=== PATIENT | male | born 1960 | race Caucasian/White ===

== ENCOUNTER 2020-06-20 15:31 | Emergency (ER) | payer OTHER, SELFPAY ==
[2020-06-20 16:33] VITALS: BP 117/85; PULSE 95; RESP 16; TEMP 36.7; O2SAT 96; BMI 27.1
--- NOTE | 2020-06-20 17:49 | CTR_ITS ---
PROCEDURE INFORMATION: Exam: CT Cervical Spine Without Contrast Exam date and time: 06/20/2020 5:58 PM Age: 59 years old Clinical indication: Neck pain; Prior surgery; Surgery date: 6+ months; Surgery type: 6-7 fusion; Patient HX: C/O neck and rue pain x 1+month denies new injury; Additional info: Cervical radiculopathy TECHNIQUE: Imaging protocol: Computed tomography images of the cervical spine without contrast. Radiation optimization: All CT scans at this facility use at least one of these dose optimization techniques: automated exposure control; mA and/or kV adjustment per patient size (includes targeted exams where dose is matched to clinical indication); or iterative reconstruction. COMPARISON: CT Cervical Spine wo* [id number] 01/11/2019 2:00 PM RADIATION DOSE METRICS: Total DLP (mGy-cm): 717 FINDINGS: Vertebrae: No acute fracture. Normal alignment. There is a satisfactory appearance of the postoperative anterior plate and screw fixation C6-C7 with solid bony fusion. There are stable mild to moderate degenerative changes at the C5-C6 disc space with there are marginal osteophytes and endplate sclerosis. Discs/Spinal canal/Neural foramina: Unchanged small disc protrusion at C5-C6. No new disc protrusion. No severe spinal canal stenosis. No new or progressive neural foraminal narrowing. Unchanged right foraminal narrowing at C6-C7 and C7-T1 due to bony osteophyte formation. Soft tissues: Unremarkable. Lungs: Lung apices are normal. CT/CT cervical spin wo con* [id number] IMPRESSION: No acute findings. Unchanged exam. Stable satisfactory appearance of the postoperative cervical spine. Unchanged small central disc protrusion at C5-C6 and unchanged right foraminal narrowing due to bony proliferative changes at C6-C7 and C7-T1. Radiation Dose CTDIVOL = (mGy): DLP = 717 (mGy-cm)
[2020-06-20 18:27] VITALS: BP 108/76; PULSE 85; RESP 18; TEMP 36.6; O2SAT 96
[2020-06-20 20:00] VITALS: BP 123/87; PULSE 83; RESP 14; TEMP 36.4; O2SAT 97
--- NOTE | 2020-06-20 20:15 | W.ED.NECK ---
HPI - Neck Pain/Injury General: Chief Complaint: Neck Pain/Injury Stated Complaint: chronic neck and arm pain Time Seen by Provider: 06/20/20 17:15 Source: patient Mode of arrival: ambulatory Limitations: no limitations History of Present Illness: HPI Narrative: Patient comes in for neck pain worse over the last 2 weeks. Patient has a history of chronic neck pain. Patient denies any new injury. Review of Systems General: Reports: 10 or more systems reviewed and unremarkable except in HPI and below Musc: Reports: neck pain PFSH ED PFSH: Medical History (Updated 06/20/20 @ 20:25 by NAA Littlejohn) HTN (hypertension) Surgical History S/P PTCA (percutaneous transluminal coronary angioplasty) Family History Sister Stroke Mother Stroke CAD (coronary artery disease) Social History (Updated 06/20/20 @ 16:40 by Bill Mckeon RN) Smoking and tobacco status: current some day smoker Alcohol intake: never Substance/Drug Use: current Substance/Drug use frequency: Special occassions/opportunity only Substance/Drug use type: Marijuana Physical Exam Const: COMMON NORMALS: no acute distress and patient oriented x3 GENERAL APPEARANCE: cooperative HENMT: COMMON NORMALS: normocephalic and Normal external nose present HEAD & SCALP: normal to inspection and normocephalic NOSE: Normal external nose present Eye: GENERAL EYE: appearance normal, both eyes and all related structures Neck/C-Spine: GENERAL: Yes torticollis Chest: COMMONS NORMALS: normal inspection of the chest Resp: COMMON NORMALS: normal respiratory effort EFFORT & INSPECTION: Yes able to speak in complete sentences Cardio: COMMON NORMALS: regular rate and regular rhythm RATE: regular rate RHYTHM: regular rhythm GI: COMMON NORMALS: non-tender Back/Pelvis: COMMON NORMALS: thoracic and lumbar spine normal to inspection Extremity: COMMON NORMALS: normal to inspection Neuro: COMMON NORMALS: patient oriented x3 and moves all extremities Psych: COMMON NORMALS: mental status grossly normal and cooperative Skin: COMMON NORMALS: no rashes or lesions noted GENERAL SKIN EXAM: no rashes or lesions noted Course Vital Signs: Vital signs: Vital Signs Temperature 97.6 F 06/20/20 20:00 Pulse Rate 83 06/20/20 20:00 Respiratory Rate 14 06/20/20 20:00 Blood Pressure 123/87 06/20/20 20:00 Pulse Oximetry 97 06/20/20 20:00 MDM - Neck Pain/Injury MDM Narrative: Medical decision making narrative: Patient comes in today for complaints of neck pain worse over the last 2 weeks. Patient has chronic neck problems. Patient has pain radiating into the right arm. Patient reports this is chronic. Differential diagnosis includes a difficult radiculopathy, muscle strain, intervertebral disc disease, facet arthropathy. CT scan of the neck noted no significant changes from prior exam. Reviewed exam with patient with recommendations for treatment of flare of condition with recommendations for follow-up. Patient reported understanding. Discharge Plan Discharge Patient Disposition: Home Clinical Impression: Cervical radiculopathy Condition: Stable Prescriptions: New hydrocodone-acetaminophen 7.5-325 mg tablet 1 tab PO Q6H PRN (Reason: pain) Qty: 12 RF: 0 No Action cyclobenzaprine 10 mg tablet 10 mg PO DAILY RF: 0 gabapentin 600 mg tablet 900 mg PO TID RF: 0 lidocaine HCl [Aspercreme (lidocaine HCl)] 4 % cream 1 applic TOPICAL BID RF: 0 acetaminophen [Tylenol Extra Strength] 500 mg tablet 500 mg PO Q6H PRNRF: 0 nitroglycerin [Nitrostat] 0.4 mg tablet, sublingual 0.4 mg SUBLINGUAL Q5M PRNRF: 0 clopidogrel [Plavix] 75 mg tablet 75 mg PO DAILY RF: 0 metoprolol tartrate 50 mg tablet 25 mg PO BID RF: 0 aspirin [Adult Low Dose Aspirin] 81 mg tablet,delayed release (DR/EC) 81 mg PO DAILY RF: 0 Discharge Orders: Discharge Order (Routine); Ordered 06/20/20 Ordered By: Franklin Mejia Referrals: Thomas Moy DO [Primary Care Provider] - Discharge Diet: Usual diet Discharge Activity: Increase activity as tolerated Patient Instructions: Cervical Radiculopathy (ED) Activity Restrictions/Additional Instructions: Activity as tolerated. Gentle stretching and range of motion exercises. Take medications as directed. Call and talk to primary care on Tuesday morning for further evaluation and treatment. Return to the emergency department for high fever or new concerns. Coding Level of Care Code ED Job Placement Specialist for Manjit Fwsandra Exam Comprehensive
[2020-06-20] MEDS: ketorolac 30 mg/mL INJ IM (20:39)
[2020-06-20] MEDS: dexamethasone 10 mg/mL INJ IM (20:39)
== END 2020-06-20 20:44 | disposition home or self-care (01) ==
PROVIDERS: Emergency Provider Nurse Practitioner Family; Family Provider Emergency Medicine Emergency Medical Services; PCP Emergency Medicine Emergency Medical Services
DX: M54.12 Radiculopathy, cervical region (principal); Z79.02 Long term (current) use of antithrombotics/antiplatelets; Z79.82 Long term (current) use of aspirin; I10 Essential (primary) hypertension; F17.210 Nicotine dependence, cigarettes, uncomplicated
CPT/HCPCS: 12345; 72125; 96372; 99281; 99283; J1100; J1885

== ENCOUNTER 2020-07-02 13:28 | Emergency (ER) | payer OTHER, SELFPAY ==
--- NOTE | 2020-07-02 13:32 | ECG_ITS ---
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 Measurements Intervals [place] Rate: 107 P: 72 IN: 158 QRS: 55 QRSD: 76 T: 69 QT: 301 QTc: 402 Interpretive Statements SINUS TACHYCARDIA POSSIBLE LEFT ATRIAL ENLARGEMENT [-0.1mV P WAVE IN V1/V2] ABNORMAL RHYTHM ECG Compared to ECG 08/02/2019 23:22:21 Sinus rhythm no longer present Myocardial infarct finding no longer present Electronically Signed On 07-02-2020 21:45:13 CDT by Artie Gerard M.D. [email or web address]/[id number]
[2020-07-02 13:33] VITALS: BP 97/51; PULSE 116; RESP 18; TEMP 36.7; O2SAT 95; BMI 27.1
--- NOTE | 2020-07-02 14:06 | XRR_ITS ---
PROCEDURE INFORMATION: Exam: XR Chest, 1 View Exam date and time: 07/02/2020 2:06 PM Age: 59 years old Clinical indication: Chest pain; Type not specified; Prior surgery; Surgery type: Stents; Patient HX: Cp started 07/01 history of heart attacks TECHNIQUE: Imaging protocol: XR of the chest Views: 1 view. COMPARISON: CR Chest 1 [place] [id number] 08/02/2019 10:02 PM FINDINGS: Lungs: Unremarkable. No consolidation. Pleural space: Unremarkable. No pleural effusion. No pneumothorax. Heart/Mediastinum: Unremarkable. No cardiomegaly. Bones/joints: Metallic surgical hardware is seen in the cervical spine XR/XR chest 1V portable [id number] IMPRESSION: No acute findings. Metallic surgical hardware cervical spine
--- NOTE | 2020-07-02 14:06 | ECG_ITS ---
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 Measurements Intervals [place] Rate: 87 P: 64 CO: 161 QRS: 35 QRSD: 82 T: 61 QT: 343 QTc: 414 Interpretive Statements SINUS RHYTHM Compared to ECG 07/02/2020 13:34:19 Sinus tachycardia no longer present Electronically Signed On 07-02-2020 21:46:55 CDT by Artie Gerard M.D. [email or web address] [email or web address] Mobile/store/NU/[id number] f
--- NOTE | 2020-07-02 14:09 | ED_ITS ---
HPI - Chest Pain General: Chief Complaint: Chest Pain Stated Complaint: Chest Pain 07/01 Time Seen by Provider: 07/02/20 13:50 Source: patient Mode of arrival: ambulatory Limitations: no limitations History of Present Illness: HPI narrative: He had an episode of chest pain yesterday that lasted about 1-1/2 hours. Pain resolved after that that he has been chest pain-free since then. At the time he had the pain he was diaphoretic and had some nausea. Chest pain was substernal and radiated to his neck. He has a prior history of [place] x2, PCI he has 2 stents. His family was worried and so asked him to come to the ED for evaluation. He feels fine now. 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 Onset (ago): day(s) (1) Timing of current episode: now resolved Prior episodes: Yes Onset: during exertion Pain location: substernal Pain radiation: neck Severity: severe Quality: heaviness Associated symptoms: Reports diaphoresis, dyspnea and nausea; Deny palpitations Review of Systems General: Reports: 10 or more systems reviewed and unremarkable except in HPI and below Const: Reports: diaphoresis Eyes: Denies: change in vision or blurry vision ENMT: Denies: throat pain, enlarged tonsils, odynophagia, hoarseness, mouth pain or swelling of lips/tongue Card: Reports: chest pain; Denies: palpitations, irregular heart rhythm, edema or swelling of feet/ankles Resp: Reports: dyspnea GI: Reports: nausea : Denies: flank pain, dysuria, urinary frequency, urinary urgency or urinary hesitancy Musc: Denies: neck pain, back pain or extremity swelling Skin/Breast: Denies: rash, pruritus or erythema Neuro: Denies: headache(s), numbness in extremities or weakness in extremities Endo: Denies: polyuria, polydipsia or tired all the time [facility] ED PFSH: Medical History HTN (hypertension) Surgical History S/P PTCA (percutaneous transluminal coronary angioplasty) Family History Sister Stroke Mother Stroke CAD (coronary artery disease) Social History Smoking and tobacco status: current some day smoker Alcohol intake: never Physical Exam Const: COMMON NORMALS: no acute distress, average body habitus, patient oriented x3, no limitations, healthy appearing, alert and well nourished HENMT: COMMON NORMALS: normocephalic, atraumatic and moist oral mucous membranes HEAD & SCALP: normocephalic and atraumatic Eye: COMMON NORMALS: Equal, round and reactive pupils present, EOMs intact bilaterally, conjunctivae normal and no scleral icterus CONJUNCTIVA: Yes conjunctivae normal PUPIL: Yes Equal, round and reactive pupils present Neck/C-Spine: COMMON NORMALS: full ROM, supple, no meningeal signs, no JVD and No carotid bruits Chest: COMMONS NORMALS: normal inspection of the chest and normal palpation of entire chest wall Resp: COMMON NORMALS: normal respiratory effort, No retractions, No use of accessory muscles, clear to auscultation bilaterally and percussion normal AUSCULTATION: clear to auscultation bilaterally PERCUSSION: percussion normal Cardio: COMMON NORMALS: no JVD, regular rate, regular rhythm, S1 normal heart sound present, S2 normal heart sound present, No gallops present (Cardio), No clicks present (Cardio), No murmurs present (Cardio), No rub (Cardio) and Peripheral pulses 2+ throughout RATE: regular rate RHYTHM: regular rhythm HEART SOUNDS: S1 normal heart sound present and S2 normal heart sound present PERIPHERAL PULSES: Peripheral pulses 2+ throughout GI: COMMON NORMALS: Normal to inspection, nondistended, normoactive bowel sounds present, Soft to palpation, non-tender, No hepatosplenomegaly present, no masses and no bruits PALPATION: Yes Soft to palpation and Yes No hepatosplenomegaly present Extremity: COMMON NORMALS: normal to inspection, full ROM, capillary refill normal, no calf tenderness and no pedal edema Neuro: COMMON NORMALS: patient oriented x3 SENSORIUM/ORIENTATION: Yes alert MENINGEAL SIGNS: Yes no meningeal signs Skin: COMMON NORMALS: no rashes or lesions noted, no wounds, turgor normal, no jaundice, no petechiae and no mottling GENERAL SKIN EXAM: no rashes or lesions noted and turgor normal Course Reevaluation(s): Reevaluation #1: Discussed his lab and imaging findings with him. Negative for acute findings. No signs of cardiac illness. He was a little bit hypotensive here in emergency department but was asymptomatic. He responded to fluid bolus. We will discharge him home with no new orders. Is advised to check his blood pressure frequently and may need an adjustment of his antihypertensive. He voiced understanding and is in agreement with the plan Time: 18:16 Vital Signs: Vital signs: Vital Signs Temperature 98.1 F 07/02/20 13:33 Pulse Rate 78 07/02/20 18:15 Respiratory Rate 18 07/02/20 18:15 Blood Pressure 95/57 07/02/20 18:15 Pulse Oximetry 95 07/02/20 18:15 MDM - Chest Pain MDM Narrative: Medical decision making narrative: 59-year-old gentleman who presented to the emergency department with chest pain happened yesterday. He was chest pain-free when he came to the emergency department. Evaluation in the emergency department was unremarkable other than he was hypotensive. Hypotension was asymptomatic and he responded to a fluid bolus. Patient was discharged home with no new orders, but he left the emergency department before he got his discharge paperwork Medical Records: Attestation: I reviewed the patient's medical records. Lab Data: Attestation: I reviewed the patient's lab results. Labs: Lab Results 07/02/20 07/02/20 07/02/20 Range/Units 13:58 13:58 13:58 WBC Cancelled Corrected WBC Cancelled RBC Cancelled Hgb Cancelled Hct Cancelled MCV Cancelled MCH Cancelled MCHC Cancelled RDW Cancelled Plt Count Cancelled MPV Cancelled Gran % Cancelled Neut % (Auto) Cancelled Lymph % (Auto) Cancelled Nobles % (Auto) Cancelled Eos % (Auto) Cancelled Baso % (Auto) Cancelled Neut # (Auto) Cancelled Lymph # (Auto) Cancelled Nobles # (Auto) Cancelled Eos # (Auto) Cancelled Baso # (Auto) Cancelled Absolute Gran (aut o) Cancelled Nucleated RBC % (a uto) Cancelled Nucleated RBCs # Cancelled Sodium 138 (136-145) mmol/L Potassium 4.5 (3.5-5.1) mmol/L Chloride 103 (98-107) mmol/L Carbon Dioxide 24 (22-29) mmol/L Anion Gap 15.5 (5-19) BUN 15 (6-20) mg/dL Creatinine 0.9 (0.7-1.2) mg/dL GFR Calculation 86.4 L (90-130) mL/min Glucose 102 (65-115) mg/dL Calculated Osmolal ity 287 (285-295) mOsm/k g Calcium 9.5 (8.5-10.5) mg/dL Total Bilirubin 0.3 (0.15-1.2) mg/dL AST 13 (0-40) U/L ALT 14 (0-41) U/L Alkaline Phosphata se 58 (40-130) IU/L Troponin T Baselin e 6 (0-15) ng/L Troponin T 120 Min hamida (0-15) ng/L Delta Troponin T (0-10) ABS# NT-Pro-B Natriuret Pep 56 (0-125) pg/mL Total Protein 6.5 L (6.6-8.7) g/dL Albumin 4.4 (3.5-5.2) g/dL Globulin 2.1 (1.3-4.6) g/dL Lipase 21 (13-60) U/L 07/02/20 07/02/20 Range/Units 15:31 15:31 WBC 9.8 Corrected WBC RBC 4.34 Hgb 14.3 Hct 43.7 MCV 100.7 H MCH 32.9 MCHC 32.7 RDW 12.5 Plt Count 181 MPV 11.4 H Gran % Neut % (Auto) 63.2 Lymph % (Auto) 27.0 Nobles % (Auto) 7.2 Eos % (Auto) 1.4 Baso % (Auto) 0.8 Neut # (Auto) 6.18 Lymph # (Auto) 2.7 Nobles # (Auto) 0.7 Eos # (Auto) 0.1 Baso # (Auto) 0.1 Absolute Gran (aut o) Nucleated RBC % (a uto) 0 Nucleated RBCs # 0.0 Sodium (136-145) mmol/L Potassium (3.5-5.1) mmol/L Chloride (98-107) mmol/L Carbon Dioxide (22-29) mmol/L Anion Gap (5-19) BUN (6-20) mg/dL Creatinine (0.7-1.2) mg/dL GFR Calculation (90-130) mL/min Glucose (65-115) mg/dL Calculated Osmolal ity (285-295) mOsm/k g Calcium (8.5-10.5) mg/dL Total Bilirubin (0.15-1.2) mg/dL AST (0-40) U/L ALT (0-41) U/L Alkaline Phosphata se (40-130) IU/L Troponin T Baselin e (0-15) ng/L Troponin T 120 Min hamida 6.00 (0-15) ng/L Delta Troponin T 0 (0-10) ABS# NT-Pro-B Natriuret Pep (0-125) pg/mL Total Protein (6.6-8.7) g/dL Albumin (3.5-5.2) g/dL Globulin (1.3-4.6) g/dL Lipase (13-60) U/L Imaging Data^: CXR: Attestation: I personally reviewed and interpreted this imaging study as follows: Radiologist's impression: [address] [address] XRay Report Signed Patient: Linda Chakraborty #: [id number] : 1Acct#:[id number] Age/Sex: 59 / MADM Date: 07/02/20 Loc: [facility] [place]/Bed: Attending Dr: Ordering Provider/Ordering MD: Omayra Clancy MD, [facility] [place] Date of Service: 07/02/20 Procedure(s): XR chest 1V portable [id number] Accession Number(s): [id number] Report Number: [id number] PROCEDURE INFORMATION: Exam: XR Chest, 1 View Exam date and time: 07/02/2020 2:06 PM Age: 59 years old Clinical indication: Chest pain; Type not specified; Prior surgery; Surgery type: Stents; Patient HX: Cp started 07/01 history of heart attacks TECHNIQUE: Imaging protocol: XR of the chest Views: 1 view. COMPARISON: CR Chest 1 [place] [id number] 08/02/2019 10:02 PM FINDINGS: Lungs: Unremarkable. No consolidation. Pleural space: Unremarkable. No pleural effusion. No pneumothorax. Heart/Mediastinum: Unremarkable. No cardiomegaly. Bones/joints: Metallic surgical hardware is seen in the cervical spine XR/XR chest 1V portable [id number] IMPRESSION: No acute findings. Metallic surgical hardware cervical spine Dictated By:Scott Viramontes Signed By:Alison Viramontes Date/Time:07/02/20 1507 DD/ 1505 EKG Data^: EKG 1: Attestation: I personally reviewed and interpreted this EKG as follows: EKG interpretation date: 07/02/20 EKG interpretation time: 13:34 Prior EKG tracings: not available for review Interpretation: Sinus tachycardia. Heart rate [address] changes. Normal axis. EKG 2: Attestation: I personally reviewed and interpreted this EKG as follows: EKG interpretation date: 07/02/20 EKG interpretation time: 16:03 Prior EKG tracings: available for review Interpretation: Normal sinus rhythm. Heart rate [address] changes. Discharge Plan Discharge Patient Disposition: Home Clinical Impression: Chest pain, non-cardiac Prescriptions: Continued cyclobenzaprine 10 mg tablet 10 mg PO DAILY RF: 0 gabapentin 600 mg tablet 900 mg PO TID RF: 0 lidocaine HCl [Aspercreme (lidocaine HCl)] 4 % cream 1 applic TOPICAL BID RF: 0 acetaminophen [Tylenol Extra Strength] 500 mg tablet 500 mg PO Q6H PRNRF: 0 nitroglycerin [Nitrostat] 0.4 mg tablet, sublingual 0.4 mg SUBLINGUAL Q5M PRNRF: 0 clopidogrel [Plavix] 75 mg tablet 75 mg PO DAILY RF: 0 metoprolol tartrate 50 mg tablet 25 mg PO BID RF: 0 aspirin [Adult Low Dose Aspirin] 81 mg tablet,delayed release (DR/EC) 81 mg PO DAILY RF: 0 hydrocodone-acetaminophen 7.5-325 mg tablet 1 tab PO Q6H PRN (Reason: pain) Qty: 12 RF: 0 Discharge Orders: Discharge Order (Routine); Ordered 07/02/20 Ordered By: Omayra Clancy Referrals: Thomas Moy DO [Primary Care Provider] - 1-3 days Discharge Diet: Usual diet Discharge Activity: Increase activity as tolerated Patient Instructions: Noncardiac Chest Pain (ED) Activity Restrictions/Additional Instructions: Return for any new or worsening symptoms. Follow-up with your primary care provider within 3 days. Check your blood pressure daily and if your blood pressure remains low you may need some adjustment of your medication. Discharge Date/Time: 07/02/20 18:17 Coding Level of Care Code ED Career Resource Technician for Manjit Fwd Exam Comprehensive
[2020-07-02 14:36] LABS: Troponin(5th) Baseline 6 ng/L (0-15)
[2020-07-02 14:43] LABS: Anion Gap 15.5 (5-19); Blood Urea Nitrogen 15 mg/dL (6-20); Carbon Dioxide 24 mmol/L (22-29); Chloride 103 mmol/L (98-107); Potassium 4.5 mmol/L (3.5-5.1); Sodium 138 mmol/L (136-145)
[2020-07-02 14:44] LABS: Alanine Aminotransferase 14 U/L (0-41); Albumin Level 4.4 g/dL (3.5-5.2); Alkaline Phosphatase 58 IU/L (40-130); Aspartate Amino Transferase 13 U/L (0-40); Calcium 9.5 mg/dL (8.5-10.5); Globulin 2.1 g/dL (1.3-4.6); Glomerular Filtration Rate 86.4 mL/min (90-130); Glucose 102 mg/dL (65-115); Lipase 21 U/L (13-60); NT Pro B Type Natriuretic Pept 56 pg/mL (0-125); Osmolality Calculated 287 mOsm/kg (285-295); Total Bilirubin 0.3 mg/dL (0.15-1.2); Total Protein 6.5 g/dL (6.6-8.7)
[2020-07-02 15:34] VITALS: BP 81/65; PULSE 88; RESP 18; O2SAT 94
[2020-07-02 15:40] LABS: Basophils # 0.1 10^3/uL (0.0-0.1); Basophils % 0.8 %; Eosinophils # 0.1 10^3/uL (0.0-0.8); Eosinophils % 1.4 %; Hematocrit 43.7 % (42.0-52.0); Hemoglobin 14.3 g/dL (11.7-16.6); Lymphocytes # 2.7 10^3/uL (0.8-4.8); Mean Corpuscular HGB Conc 32.7 g/dL (30.0-36.0); Mean Corpuscular Hemoglobin 32.9 pg (28.0-34.0); Mean Corpuscular Volume 100.7 fL (80-94); Mean Platelet Volume 11.4 fL (7.4-10.4); Monocytes # 0.7 10^3/uL (0.2-0.9); Monocytes % 7.2 %; Neutrophils # 6.18 10^3/uL (1.8-7.7); Neutrophils % 63.2 %; Nucleated Red Blood Cells % 0 %; Platelet Count 181 10^3/cmm (130-400); Red Blood Count 4.34 10^6/uL (4.1-5.3); Red Cell Distribution Width 12.5 % (12.1-15.1); White Blood Count 9.8 10^3/uL (4.0-10.0)
[2020-07-02] MEDS: sodium chloride 0.9% 1,000 ML 999 ML IV (15:51)
[2020-07-02 15:58] LABS: Troponin 5 2HR Delta 0 ABS# (0-10)
[2020-07-02 17:32] VITALS: BP 88/65; PULSE 77; RESP 16; O2SAT 94
[2020-07-02 18:15] VITALS: BP 95/57; PULSE 78; RESP 18; O2SAT 95
== END 2020-07-02 18:17 | disposition home or self-care (01) ==
PROVIDERS: Emergency Provider Family Medicine; PCP Emergency Medicine Emergency Medical Services
DX: R07.89 Other chest pain (principal); Z79.02 Long term (current) use of antithrombotics/antiplatelets; Z79.82 Long term (current) use of aspirin; I10 Essential (primary) hypertension; F17.210 Nicotine dependence, cigarettes, uncomplicated
CPT/HCPCS: 12345; 71045; 80053; 83690; 83880; 84484; 85025; 93005; 96360; 99283; 99284; J7030

== ENCOUNTER 2020-09-16 07:35 | Outpatient (CLI) | payer OTHER, SELFPAY ==
[2020-09-16 07:44] VITALS: BMI 26.8
--- NOTE | 2020-09-16 07:51 | USCV_ITS ---
Fahad Chakraborty Age: 59 Gender: M : 1960 Exam Date: 09/16/2020 08:44 Ordering Phys: Patrick Nieto MD ([email or web address]) Technologist: Tobias Dale [place] [facility] [place]: hx of mi BP: 124 / 72 HR: 94 Rhythm: Sinus Technical Quality: Good MEASUREMENTS (Male / Female) Normal Values 2D ECHO LV Diastolic Diameter PLAX 3.7 cm 4.2 - 5.9 / 3.9 - 5.3 cm LV Systolic Diameter PLAX 2.3 cm IVS Diastolic Thickness 0.9 cm 0.6 - 1.0 / 0.6 - 0.9 cm IVS Systolic Thickness 1.2 cm LVPW Diastolic Thickness 1.2 cm 0.6 - 1.0 / 0.6 - 0.9 cm LVPW Systolic Thickness 1.1 cm LVOT Diameter 2.1 cm LV Ejection Fraction 2D Teich 69.3 % LV Ejection Fraction MOD 2C 66.9 % LV Ejection Fraction 2C AL 65.9 % LA Diameter 3.6 cm LA Width 3.5 cm LA Height 3.3 cm RA Width 3.5 cm RA Height 4.1 cm M-MODE LV Diastolic Diameter MM 4.1 cm 4.2 - 5.9 / 3.9 - 5.3 cm LV Systolic Diameter MM 3.3 cm LV Ejection Fraction MM Teich 42.3 % IVS Diastolic Thickness MM 0.9 cm 0.6 - 1.0 / 0.6 - 0.9 cm IVS Systolic Thickness MM 1.4 cm LVPW Diastolic Thickness MM 1.0 cm 0.6 - 1.0 / 0.6 - 0.9 cm LVPW Systolic Thickness MM 1.6 cm RV Diastolic Diameter MM 1.8 cm Aortic Annulus Diameter 3.1 cm LA Ao Ratio MM 1.2 MV E Point Septal Separation 0.9 cm DOPPLER AV Peak Velocity 118.0 cm/s LVOT Peak Velocity 81.0 cm/s AV Area Cont Eq vti 2.3 cm squared AV Area Cont Eq pk 2.3 cm squared MV Area PHT 5.0 cm squared Mitral E to A Ratio 0.6 MV E' Velocity 33.0 cm/s Mitral E to MV E' Ratio 5.4 Mitral E to LV E' Lateral Ratio 4.6 Mitral E to LV E' Septal Ratio 6.8 TR Peak Velocity 132.7 cm/s TR Peak Gradient 7.0 mmHg TV Peak E Velocity 54.0 cm/s Right Atrial Pressure 3.0 mmHg Pulmonary Artery Systolic Pressu 10.0 mmHg PV Peak Velocity 87.0 cm/s FINDINGS Left Ventricle Normal left ventricular cavity size. Normal left ventricular systolic function. No regional wall motion abnormalities. Left ventricular ejection fraction is estimated at 60 %. Grade I/IV diastolic dysfunction (abnormal relaxation filling pattern), normal to mildly elevated filling pressures. Right Ventricle The right ventricle is normal in size and function. Right Atrium The right atrium is normal in size. Left Atrium The left atrium is normal in size. Mitral Valve Moderately thickened mitral valve. No mitral valve stenosis. No mitral valve regurgitation. Aortic Valve Aortic valve sclerosis without stenosis or regurgitation. Tricuspid Valve Trace to mild tricuspid valve regurgitation. Pulmonic Valve Structurally normal pulmonic valve without significant stenosis. There is no pulmonic regurgitation. Pericardium Normal pericardium without effusion. Aorta Normal ascending aorta dimension. CONCLUSIONS 1-Normal left ventricular cavity size. Normal left ventricular systolic function. No regional wall motion abnormalities. Left ventricular ejection fraction is estimated at 60 %. Grade I/IV diastolic dysfunction (abnormal relaxation filling pattern), normal to mildly elevated filling pressures. 2-Trace to mild tricuspid valve regurgitation. 3-Moderately thickened mitral valve. No mitral valve stenosis. No mitral valve regurgitation. 4-There is no pericardial effusion. 5-Pulmonary artery systolic pressure is within normal limits. 6-No significant change since the prior echocardiogram study of 01/01/2017. Patrick Nieto MD (Electronically Signed) Final Date: 17 September 2020 17:54 S
--- NOTE | 2020-09-16 08:00 | ECG_ITS ---
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 Baseline heart rate was 104 beats per minute. Baseline blood pressure was 116/76 millimeters of mercury. Target heart rate was 161 beats per minute. Maximum heart rate achieved was 142, which was 88 % of the target heart rate. Maximum blood pressure was 168/95 millimeters of mercury. Total exercise time was 4 minutes 1 second. Maximum METs achieved was 6.3, maximum VO2 was 22.1. The reason for ending the test was maximum effort achieved. The patient complained of shortness of breath during the stress test, which then resolved at the end of the test. ELECTROCARDIOGRAM: BASELINE: Sinus rhythm, normal axis, no significant ST-T changes at the baseline noted. EXERCISE: At the peak exercise level, no significant ST-T changes suggestive of ischemia noted. RECOVERY: During the recovery period, heart rate dropped appropriately. No significant ST-T changes in the recovery suggestive of ischemia noted. CONCLUSION: 1. Exercise capacity poor. 2. Heart rate response was appropriate. 3. Blood pressure response was appropriate. 4. Symptoms not suggestive of ischemia. 5. Electrocardiogram portion of the stress test was not suggestive of ischemia. 6. Nuclear scan will be documented separately. Due to under achievement of METs and poor exercise capacity specificity and sensitivity of EKG portion of the stress test will be low Electronically Signed On 09-16-2020 20:06:23 FREIGHT BROKER by PATRICK NIETO [id number]
--- NOTE | 2020-09-16 08:01 | NMCV_ITS ---
NM angela perf SPECT r/s* [id number] Fahad Chakraborty Age: 59 Gender: M : 1960 Exam Date: 09/16/2020 08:58 Ordering Phys: Patrick Nieto MD ([email or web address]) Technologist: JEMMA Bernard Exam Location: [facility] Indications: Chest pain STRESS TEST Please see separate stress test report in [facility] for full findings IMAGE PROTOCOL Rest/Stress 1 Exercise Day Radiopharmaceutical Dose (mCi) Administration Site Administered by Rest: Tc-99m 10.7 IV Sujata Allie, BLOCK MACHINE OPERATOR Sestamibi Stress:Tc-99m 32.5 IV Sujata Allie, BLOCK MACHINE OPERATOR Sestamibi Rest: 16-Sep-2020 60 Discovery 630 Stress: 16-Sep-2020 30 Discovery 630 Radiopharmaceutical was injected at 85 % maximum heart rate. Images obtained in supine and prone position. SPECT RESULTS Technical Quality: Good Raw Data Analysis: Normal Image Corrections: No attenuation or motion correction applied Summed Stress Score: 4 Summed Rest Score: 2 Summed Difference Score: 2 PERFUSION FINDINGS Large area of reduce tracer uptake with medium-sized area of moderate to severe reversibility noted in basal to distal inferior inferoseptal wall suggestive of old myocardial infarction surrounded by moderate to severe maria del carmen-infarct ischemia in RCA territory. FUNCTIONAL RESULTS (calculated via Gated SPECT) Stress Image LV EF (%): 55 Stress EDV (mL):64 TID: 0.95 Stress ESV (mL):29 Rest Image LV EF (%): 55 FUNCTIONAL FINDINGS: Basal to distal inferior wall hypokinesis. IMPRESSIONS Large area of old myocardial infarction surrounded by medium-sized area of moderate to severe maria del carmen-infarct ischemia noted. RCA appeared to be the culprit artery. EKG segment will be documented separately. Patrick Nieto MD (Electronically Signed) Final Date: 16 September 2020 19:52 S
[2020-09-16 09:40] VITALS: BP 109/74; PULSE 107
== END 2020-09-16 07:36 | disposition home or self-care (01) ==
PROVIDERS: PCP Emergency Medicine Emergency Medical Services; Visit Provider Internal Medicine Cardiovascular Disease
DX: I20.9 Angina pectoris, unspecified (principal); R07.9 Chest pain, unspecified; R06.02 Shortness of breath; I25.9 Chronic ischemic heart disease, unspecified; I08.1 Rheumatic disorders of both mitral and tricuspid valves; I25.2 Old myocardial infarction
CPT/HCPCS: 78452; 93017; 93306; A9500

== ENCOUNTER 2020-10-03 08:29 | Outpatient (CLI) | payer OTHER, SELFPAY ==
[2020-10-03 09:14] LABS: Anion Gap 10.9 (5-19); Blood Urea Nitrogen 10 mg/dL (6-20); Calcium 9.6 mg/dL (8.5-10.5); Carbon Dioxide 32 mmol/L (22-29); Chloride 103 mmol/L (98-107); Glomerular Filtration Rate 98.9 mL/min (90-130); Glucose 84 mg/dL (65-115); Osmolality Calculated 290 mOsm/kg (285-295); Potassium 4.9 mmol/L (3.5-5.1); Sodium 141 mmol/L (136-145)
== END 2020-10-03 08:30 | disposition home or self-care (01) ==
LOC: LAB 08:31
PROVIDERS: PCP Emergency Medicine Emergency Medical Services; Visit Provider Internal Medicine Cardiovascular Disease
DX: I25.118 Atherosclerotic heart disease of native coronary artery with other forms of angina pectoris (principal); R07.9 Chest pain, unspecified
CPT/HCPCS: 80048; 87635

== ENCOUNTER 2020-10-07 10:07 | Observation (INO) | payer OTHER, SELFPAY ==
[2020-10-07] VITALS (34 sets, daily range): BP systolic 88–130; BP diastolic 63–99; PULSE 65–97; RESP 11–26; TEMP 36.3–36.8; O2SAT 91–100; BMI 26.9
--- NOTE | 2020-10-07 07:30 | XACV_ITS ---
Ht: 183 cm Wt: 90 kg BSA: 2.15 m2 Gender: Male : 1960 Any Known Allergies: Other Exam Priority: Routine Procedure(s): Procedure Description: Diagnostic procedure Procedure Description: PCI procedure Procedure Description: Left Heart Catheterization Procedure Description: Drug Eluting Coronary Stent Procedure Description: PTCA Procedure Description: Coronary Angiography Diagnostic Findings * LM: Mild 30% stenosis, JOSEPH: 3 flow. * mLAD: Moderate 60% stenosis, JOSEPH: 3 flow. * Mid Circumflex Coronary Artery: Severe 95% stenosis, JOSEPH: 0 flow. * pRCA: Mild 30% stenosis, JOSEPH: 3 flow. * Coronary angiography shows right dominance. PCI Indication: New Onset Angina <= 2 months Interventional Findings * Mid Circumflex Coronary Artery: 95% stenosis treated with AB MINI TREK 2.00X12 RX BALLOON, RAMAN Ferris HUSAM 3.0X12 ALONSO, and MDT NIKITA EUPHORA RX 3.70B50XF BALLOON. 0% residual stenosis, JOSEPH: 3 flow. Conclusions 1. 1-Left main has distal 20 to 30% stenosis, guide related spasm was also observed with were relieved with nitroglycerin2-LAD has patent proximal stent but distal end of the stent has 60% in-stent restenosis3-LCx has distal 95% stenosis it is culprit vessel.4-RCA has patent proximal stent , proximal 30% stenosis of RCA was noted along with spasm upon engaging.. 2. Indication for left heart cath: 3. Angina with abnormal stress test. 4. There is severe coronary artery disease with four vessel disease. 5. Mid Circumflex Coronary Artery was treated with two Balloon and Drug Eluting Stent. 6. Coronary spasm of distal left main 7. and 8. proximal RCA was noted. Recommendations * 1-Return to inpatient for close monitoring and routine cath care 2-Risk factor modification for secondary prevention 3-Statin and aspirin 81 mg life--long, if tolerated 4-Continue Plavix 75mg p.o. daily for at least one year. We will assess at the end of one year again to continue if further or not 5-Continue optimal medical management 6-Follow up with Dr. Nieto in four weeks and your primary care in 10 days. Diagnostic RX Recommendation: PCI w/o planned CABG Pressures Phase:Rest AO : 273 / 183 ( 220 ) @ 3:15:00 AM 263 / 57 ( 170 ) @ 3:17:00 AM 245 / 35 ( 136 ) @ 3:19:00 AM / ( 42 ) @ 3:49:00 AM 97 / 87 ( 91 ) @ 3:56:00 AM Clinical Evaluation EBL: 5mL-10mL Procedural Details Procedure Consent Obtained. Physician notified. Physician arrived. Patient's family unavailable. Equipment: 6F - Radial. Cardiac Cath Pack. ACIST Manifold Kit Model BT 2000. Heparinized Saline (2 units/mL), 1000 mL bag. Pre-Procedure Time Out. Identified patient by full name and date of as verbalized by the patient/guarantor. Does the consent match the physician's order: Yes. Accurate & Complete Informed Consent: Yes. Inpatient/Outpatient History & Physical on Chart: Yes. If H&P is completed, is and addenduem needed: N/A; If yes, is the addendum complete: N/A. Visualize and Verify Site with Patient/Guarantor: N/A. Relevant Radiology Images available: Yes. Pre-op teaching completed and patient verbalized understanding. The risks, benefits, and alternatives of sedation and/or procedure were discussed by physician. The patient agrees to continue. Procedure started. Correct patient, site and procedure confirmed by cath team. PERRLA. Strong, equal hand bow maker machine tender bilaterally. Lungs clear x 5 lobes. IV Site on Arrival: 20 gauge in the right anticubital. IV Fluids: 0.9% NaCl at KVO. 0 mL infused prior to warehouse general laborer. Oxygen started at 2liters/min via nasal canula. right groin was prepped with chloroprep then draped in the usual sterile fashion. right radial was prepped with chloroprep then draped in the usual sterile fashion. Baseline sample Acquired. HR: 68 BPM. Physician scrubbed in. Immediate Pre-Procedure Time Out. Correct Patient: Yes; Correct Procedure: Yes; Correct Site: Yes; Correct Patient Position: Yes; Correct Supplies: Yes; Dried Flammable Prep: Yes; Blood Products Available: No;. Lidocaine 1% infiltrated to the right radial. Arterial access obtained. A 5 lithuanian TIG catheter in over wire. Delay due to problems with hemo. Flushing the catheter. Multiple views taken of left coronary artery. Catheter redirected to the RCA. Multiple views taken of right coronary artery. Catheter out. due to problems with hemo cath stopped. Contrast type used: Omnipaque 300 mgI/mL, 500 mL bottle. pt complaint of chest pain. surgery notified of high risk intervention. ap pads placed on pt. 6 lithuanian XB 3.5 guide catheter was inserted over the wire. Inventory is 2Checkout XT .[address] Guidewire. Dr. Veliz unavailable. Mcfarlan guidewire was advanced through the guide catheter to lesion in the mid Circ. Inflation number : 1 A AB MINI TREK 2.00X12 RX BALLOON was prepped and advanced across the Mid CX , then inflated to 18 ERNA for 0:14 seconds. Results checked. Balloon out. Inflation Number : 2 A RAMAN Ferris HUSAM 3.0X12 ALONSO -Lot Number# [id number] exp 05-22-2022 was prepped and advanced across the Mid CX. The stent was deployed at 18 ERNA for 0:21 seconds. Stent balloon out over wire. Balloon and wire out. Guide repositioned. Weimob guidewire was advanced through the guide catheter to lesion in the mid Circ. Inflation number : 3 A RAMAN SHELTON EUPHORA RX 3.06H79OM BALLOON was prepped and advanced across the Mid CX , then inflated to 16 ERNA for 0:17 seconds. Balloon out. Results checked. Wire out. ACT drawn. Results 189 seconds. Therapeutic limits - pre-heparin administration 90-150 seconds and monitoring heparin during a vascular procedure >250 seconds. A TR Band was successful obtaining hemostatsis at the Right Radial artery insertion site. TR band placed. Hemostasis obtained. Post Procedure: Pulses reassessed and unchanged. PERRLA. Strong, equal hand bow maker machine tender bilaterally. Fluoro: 14:01. [id number]. Complications: none. Estimated blood loss: 5mL-10mL. Procedure completed. Patient transferred by wheelchair to 1st floor. No VTE prophylaxis required. Medication's Wasted: Other = versed 0.5 mg. Medication's Wasted: Nitro = 49.8 mg. Medication's Wasted: Lidocaine 1% = 18 mL. Total IV fluids: 600 mL. PCI Indication: New Onset Angina. Post-op diagnosis: post PCI mid CX. [facility] Clinical Fraility Score: 3: Managing Well. University Professor Indications: New Onset Angina. Chest Pain Symptom Assessment: Typical Angina Symptoms. Cardiovascular Instability: No. Vital chart was stopped. Access Site Site: Right Radial artery Sheath Size: 6 Fr Hemostasis Method: TR Band Hemostasis Success: Successful Procedure Medications Start: 8:42 AM Stop: 8:42 AM Medication: Versed Amount: 1 mg Route: I.V. Start: 8:42 AM Stop: 8:42 AM Medication: Fentanyl Amount: 50 mcg Route: I.V. Start: 8:46 AM Stop: 8:46 AM Medication: Versed Amount: 1 mg Route: I.V. Start: 8:52 AM Stop: 8:52 AM Medication: Versed Amount: 1 mg Route: I.V. Start: 8:55 AM Stop: 8:55 AM Medication: 0.9% Saline Amount: 250 ml Route: I.V. bolus Start: 9:16 AM Stop: 9:16 AM Medication: Heparin Amount: 5000 units Route: I.V. Start: 9:16 AM Stop: 9:16 AM Medication: 0.9% Saline Amount: 250 ml Route: I.V. bolus Start: 9:25 AM Stop: 9:25 AM Medication: Nitrogylcerin Amount: 2 Sprays Route: S.L. Start: 9:28 AM Stop: 9:28 AM Medication: Morphine Amount: 2 mg Route: I.V. Start: 9:35 AM Stop: 9:35 AM Medication: Heparin Amount: 4000 units Route: I.V. Start: 9:42 AM Stop: 9:42 AM Medication: Versed Amount: 0.5 mg Route: I.V. Start: 10:03 AM Stop: 10:03 AM Medication: Heparin Amount: 2000 units Route: I.V. I, the attending physician, have reviewed and verified all procedure medications. Yes, all medications given per verbal order History/Risk Factors Hypertension: Yes Dyslipidemia: Yes Myocardial Infarction (AL): Yes Tobacco Use: Current/Recent(w/in 1 year) Prior Interventions PCI: Yes Report Signatures Finalized by Patrick Nieto MD on 10/19/2020 07:27 PM
[2020-10-07 07:48] LABS: Basophils # 0.1 10^3/uL (0.0-0.1); Basophils % 0.8 %; Eosinophils # 0.3 10^3/uL (0.0-0.8); Eosinophils % 3.4 %; Hematocrit 44.2 % (42.0-52.0); Hemoglobin 14.8 g/dL (11.7-16.6); Lymphocytes # 2.6 10^3/uL (0.8-4.8); Lymphocytes % 29.9 %; Mean Corpuscular HGB Conc 33.5 g/dL (30.0-36.0); Mean Corpuscular Hemoglobin 33.2 pg (28.0-34.0); Mean Corpuscular Volume 99.1 fL (80-94); Mean Platelet Volume 11.3 fL (7.4-10.4); Monocytes # 0.9 10^3/uL (0.2-0.9); Neutrophils # 4.77 10^3/uL (1.8-7.7); Neutrophils % 55.8 %; Nucleated Red Blood Cells % 0 %; Platelet Count 186 10^3/cmm (130-400); Red Blood Count 4.46 10^6/uL (4.1-5.3); Red Cell Distribution Width 12.2 % (12.1-15.1); White Blood Count 8.6 10^3/uL (4.0-10.0)
[2020-10-07] MEDS: diphenhydrAMINE 50 mg Capsule PO (07:49)
--- NOTE | 2020-10-07 08:34 | W.PM.OPSFHP ---
Same Day Surgery H&P Indication for Procedure/HPI DATE OF PROCEDURE: October 07, 2020 CHIEF COMPLAINT/INDICATIONFOR SURGICAL PROCEDURE: Worsening of chest pain in a patient with history of prior intervention to LAD and diagonal PREOP DIAGNOSIS: Abnormal stress test, chest pain suspicious for angina PLANNED PROCEDRUE: Operation Date: 10/07/20 08:30 Proposed Procedures p Left Cardiac Catheterization 88886 R94.39(Left) - Patrick Nieto MD 59-year-old male past medical history significant for tobacco abuse hypertension hyperlipidemia coronary artery disease history of stent to LAD and percutaneous angioplasty to diagonal branch few years ago was complaining of worsening of chest pain along with shortness of breath despite of optimal medical management. He therefore underwent nuclear stress test perfusion scan was abnormal for moderate ischemia in the inferior wall. It is the reason patient was brought in for left heart cath and PCI if indicated. Patient understand all risk benefit and alternate for the procedure. He understand risk of arrhythmia emergent bypass, risk of bleeding stroke and worse case scenario . He would like to proceed with it. I have personally explained him all risk benefit and alternative for the procedure in the presence of his better half. Medications/Allergies* Home Medications Medication Instructions Recorded Confirmed Type acetaminophen 500 mg tablet 500 mg PO Q6H PRN 12/24/19 10/07/20 History aspirin 81 mg tablet,delayed 81 mg PO DAILY 12/24/19 10/07/20 History release clopidogrel 75 mg tablet 75 mg PO DAILY 12/24/19 10/07/20 History cyclobenzaprine 10 mg tablet 10 mg PO DAILY tab 12/24/19 10/07/20 History gabapentin 600 mg tablet 900 mg PO TID tab 12/24/19 10/07/20 History lidocaine HCl 4 % topical cream 1 applic TOPICAL BID 12/24/19 10/07/20 History metoprolol tartrate 50 mg tablet 25 mg PO BID tab 12/24/19 10/07/20 History nitroglycerin 0.4 mg sublingual 0.4 mg SUBLINGUAL Q5M PRN 12/24/19 10/07/20 History tablet finasteride 5 mg tablet 5 mg PO DAILY 07/07/20 10/07/20 History famotidine 20 mg PO BID 10/06/20 10/07/20 History lisinopril 5 mg PO BID 10/06/20 10/07/20 History simvastatin 40 mg PO BEDTIME 10/06/20 10/07/20 History tamsulosin 0.4 mg PO DAILY 10/06/20 10/07/20 History Allergies/Adverse Reactions Allergy/AdvReac Type Severity Reaction Status Date / Time tramadol [From Ultram] Allergy Severe Seizures Verified 10/07/20 07:56 celecoxib [From Celebrex] Allergy Mild Chronic Verified 10/07/20 07:56 Diarrhea ibuprofen AdvReac Mild Taking Verified 10/07/20 07:56 Plavix Current Medications: Generic Name Dose Route Start Last Admin Trade Name Freq PRN Reason Stop Dose Admin Sodium Chloride 1,000 mls @ 50 mls/hr 10/07/20 07:30 10/07/20 07:55 Sodium Chloride 0.9% IV 10/08/20 03:29 Not Given .Q20H ONE Pertinent History/Comorbid Conditions* Medical History (Updated 07/10/20 @ 00:00 by ) Coronary artery disease HTN (hypertension) Surgical History (Updated 12/24/19 @ 13:19 by Patrick Nieto MD) S/P PTCA (percutaneous transluminal coronary angioplasty) Family History (Updated 12/24/19 @ 13:02 by Bijal Bartlett LPN) CAD (coronary artery disease) Mother Stroke Sister Mother Social History Smoking and tobacco status: current some day smoker Alcohol intake: never Pertinent Exam Findings alert, oriented x 3, clear to auscultation bilaterally, regular rate & rhythm and operative site marked Conscious Sedation Assessment PATIENT ASSESSED PRIOR TO SEDATION, WITH NO CHANGE NOTED: Yes AIRWAY EVAL/ANESTHESIA PLAN: ASA II, Risks, benefits & alternatives of sedation and/or procedure discussed and Patient agrees to continue as planned Recommendations Surgery/Procedure today Coding Level of Care Code Acute Customer Advisor for Manjit Barney
--- NOTE | 2020-10-07 10:14 | ECG_ITS ---
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 Measurements Intervals [place] Rate: 73 P: 66 NC: 176 QRS: 28 QRSD: 82 T: 64 QT: 394 QTc: 435 Interpretive Statements SINUS RHYTHM LOW QRS VOLTAGE IN EXTREMITY LEADS [QRS DEFLECTION < 0.5 mV IN LIMB LEADS] Compared to ECG 07/02/2020 16:03:37 Low QRS voltage now present Electronically Signed On 10-07-2020 17:07:37 ZONE SUPERVISOR FIREARMS by Moe Cason M.D. [email or web address].Zeenshareuniversity of mississippi medical centerERA Biotechw[facility].[employer]/store/OM/[id number]
--- NOTE | 2020-10-07 10:31 | PC.NURSE ---
patient to room 104 via wheel chair accompanied by lab coordinator staff patient reporting continued chest pain stat ekg ordered and performed no new instructions given by Dr. isabel
[2020-10-07] MEDS: aspirin 81 mg EC Tablet PO (11:36)
[2020-10-07] MEDS: clopidogrel 75 mg Tablet PO (11:36)
[2020-10-07] MEDS: HYDROcodone-acetaminophen 7.5-325 mg Tablet 1 TAB PO (12:11)
[2020-10-07] MEDS: gabapentin 300 mg Capsule 900 MG PO ×2 (15:08→21:20)
[2020-10-07] MEDS: lisinopril 5 mg Tablet PO (17:56)
[2020-10-07] MEDS: famotidine 20 mg Tablet PO (17:57)
[2020-10-07] MEDS: metoprolol tartrate 25 mg Tablet PO (17:57)
--- NOTE | 2020-10-07 18:46 | PC.NURSE ---
Received report from Amanda Gatica RN at bedside. Patient is s/p [facility] with right radial access. Dressing in place to right wrist remains c,d,i with no s/s of bleeding or hematoma formation observed. Patient requesting something for sleep tonight. Informed patient that he did have something ordered and would provide at his request. Patient denies pain or needs. No distress observed.
[2020-10-07] MEDS: temazepam 15 mg Capsule PO (21:20)
[2020-10-08 03:24] VITALS: BP 102/83; PULSE 65; RESP 13; TEMP 36.6; O2SAT 90
[2020-10-08 05:09] LABS: Basophils # 0.1 10^3/uL (0.0-0.1); Basophils % 0.7 %; Eosinophils # 0.2 10^3/uL (0.0-0.8); Eosinophils % 2.6 %; Hematocrit 42.7 % (42.0-52.0); Hemoglobin 14.4 g/dL (11.7-16.6); Lymphocytes # 2.5 10^3/uL (0.8-4.8); Lymphocytes % 27.9 %; Mean Corpuscular HGB Conc 33.7 g/dL (30.0-36.0); Mean Corpuscular Hemoglobin 32.7 pg (28.0-34.0); Mean Corpuscular Volume 96.8 fL (80-94); Mean Platelet Volume 11.8 fL (7.4-10.4); Monocytes # 0.8 10^3/uL (0.2-0.9); Monocytes % 9.2 %; Neutrophils # 5.26 10^3/uL (1.8-7.7); Neutrophils % 59.4 %; Nucleated Red Blood Cells % 0 %; Platelet Count 180 10^3/cmm (130-400); Red Blood Count 4.41 10^6/uL (4.1-5.3); Red Cell Distribution Width 12.2 % (12.1-15.1); White Blood Count 8.9 10^3/uL (4.0-10.0)
[2020-10-08 05:40] LABS: Anion Gap 13.3 (5-19); Blood Urea Nitrogen 13 mg/dL (6-20); Calcium 9.2 mg/dL (8.5-10.5); Carbon Dioxide 26 mmol/L (22-29); Chloride 105 mmol/L (98-107); Glomerular Filtration Rate 98.9 mL/min (90-130); Glucose 89 mg/dL (65-115); Osmolality Calculated 290 mOsm/kg (285-295); Potassium 4.3 mmol/L (3.5-5.1); Sodium 140 mmol/L (136-145)
[2020-10-08 06:00] VITALS: PULSE 77
[2020-10-08 07:40] VITALS: TEMP 36.4
[2020-10-08] MEDS: acetaminophen 500 mg Tablet PO (07:45)
[2020-10-08] MEDS: famotidine 20 mg Tablet PO (08:40)
[2020-10-08] MEDS: lisinopril 5 mg Tablet PO (08:40)
[2020-10-08] MEDS: metoprolol tartrate 25 mg Tablet PO (08:40)
[2020-10-08] MEDS: finasteride 5 mg Tablet PO (08:40)
[2020-10-08] MEDS: tamsulosin 0.4 mg Capsule PO (08:40)
[2020-10-08] MEDS: clopidogrel 75 mg Tablet PO (08:41)
[2020-10-08] MEDS: gabapentin 300 mg Capsule 900 MG PO (08:41)
[2020-10-08] MEDS: aspirin 81 mg EC Tablet PO (08:41)
--- NOTE | 2020-10-08 09:55 | PC.CHAP ---
Pastoral Care Encounter/Spiritual Assessment Type of Contact [] Declined supervising chef visit [] Patient/Family/Request visit [] Outpatient visit [] Follow-up visit [] Physician referral [] Code/Alert [x] Routine visit [] Staff referral [] Actively dying [] Patient sleeping [] Family support [] [] Out of room [] Palliative care [] [] Receiving care in room [] Pre-surgical visit [] Trauma [] Long length of stay [] ICU visit [] Other: Relational/Emotional Strength [] Patient feels connected with others/family/visitors/staff [] Distress [] Loneliness/isolation [] Abandonment Spirituality of Patient [x] Person of Tootie [] Attends Jewish of their [place] [x] Believes in Prayer [] Reads Bible or Synagogue materials [] There are Spiritual issues to be addressed Upper Marker Interventions [x] Prayer [x] Active listening [x] Non-anxious presence [x] Spiritual/emotional support [] Crisis/trauma care [] Spiritual counseling [] Bereavement support [] Provided bereavement packet [] Provided Bible/devotional materials [] Provided toy/stuffed animal, coloring book to patient or family member [] Provided Communion [] Anointing/[place] [] Salvation [x] Completed spiritual assessment [] Other: Impact on Illness or Injury [] Angry [] Fearful [] Anxious [] Often cries [] Exhaustion [] Unable to work [] Unable to attend yarsani [] Unable to walk/stand [] Unable to read [] Unable to drive [] Unable to eat/drink [] Unable to sleep [] Unable to be with family [] Patient intubated [] Other: Summary enjoyed visit with patient. felling much better than when he arrived. advised patient if additional visit required by supervising chef, available 04/04 Time spent with patient 20 min
--- NOTE | 2020-10-08 11:55 | P.SS_ITS ---
Short Stay Summary Providers Date of Admit/Discharge: 10/08/20 Attending Provider: Patrick Nieto MD Primary Care Provider: Thomas Moy DO Chief Complaint: left heart cath HPI History of Present Illness Fahad Chakraborty is a 59 year old male past medical history significant for coronary disease, continued tobacco abuse, questionable compliance PND orthopnea underwent left heart cath for worsening of chest pain shortness of breath angina and abnormal stress test. He was noted to have mid LAD 60% stenosis mid circumflex 90% significant stenosis and proximal RCA 60% stenosis. Circumflex appeared to be clearly culprit while LAD and RCA may require FFR however due to technical fault in our hemodynamics were not able to perform FFR. I decided to take patient off the table and bring him back for FFR and intervention of the circumflex but patient started having chest pain, coronary spasm was also noted in the distal left main IC nitroglycerin was given which resolved the spasm . Left circumflex appeared to be clearly culprit with more than 90% stenosis definitively proceed with intervention of the left circumflex with intention to treat patient medically since stress test was negative in LAD and RCA territory until he has symptoms for which he may can be bring back for FFR in those lesions at some point. Overnight patient denied any complaint this morning he is walking around and would like to be discharged. Advised to quit smoking. Review of Systems ENMT: Denies: enlarged tonsils Home Meds/Allergies Home Medications and Allergies Home Medications Medication Instructions Recorded Confirmed Type acetaminophen 500 mg tablet 500 mg PO Q6H PRN 12/24/19 10/07/20 History aspirin 81 mg tablet,delayed 81 mg PO DAILY 12/24/19 10/07/20 History release clopidogrel 75 mg tablet 75 mg PO DAILY 12/24/19 10/07/20 History cyclobenzaprine 10 mg tablet 10 mg PO DAILY tab 12/24/19 10/07/20 History gabapentin 600 mg tablet 900 mg PO TID tab 12/24/19 10/07/20 History lidocaine HCl 4 % topical cream 1 applic TOPICAL BID 12/24/19 10/07/20 History metoprolol tartrate 50 mg tablet 25 mg PO BID tab 12/24/19 10/07/20 History nitroglycerin 0.4 mg sublingual 0.4 mg SUBLINGUAL Q5M PRN 12/24/19 10/07/20 History tablet finasteride 5 mg tablet 5 mg PO DAILY 07/07/20 10/07/20 History famotidine 20 mg PO BID 10/06/20 10/07/20 History lisinopril 5 mg PO BID 10/06/20 10/07/20 History simvastatin 40 mg PO BEDTIME 10/06/20 10/07/20 History tamsulosin 0.4 mg PO DAILY 10/06/20 10/07/20 History Allergies Allergy/AdvReac Type Severity Reaction Status Date / Time tramadol [From Ultram] Allergy Severe Seizures Verified 10/07/20 07:56 celecoxib [From Celebrex] Allergy Mild Chronic Verified 10/07/20 07:56 Diarrhea ibuprofen AdvReac Mild Taking Verified 10/07/20 07:56 Plavix PFSH Acute PFSH: Medical History Coronary artery disease HTN (hypertension) Surgical History S/P PTCA (percutaneous transluminal coronary angioplasty) Family History Sister Stroke Mother Stroke CAD (coronary artery disease) Social History Smoking and tobacco status: current some day smoker Alcohol intake: never Vitals/I&O/Wt Last Vital Signs Temp 97.5 F L 10/08/20 07:40 Pulse 77 10/08/20 06:00 Resp 13 10/08/20 03:24 BP 102/83 10/08/20 03:24 Pulse Ox 90 10/08/20 03:24 10/07/20 10/08/20 10/08/20 22:59 06:59 14:59 Intake Total 480 / 480 150 / 630 360 / 360 Output Total 375 / 825 450 / 1275 600 / 600 Balance 105 / -345 -300 / -645 -240 / -240 Weight last 48 hrs Weight 199 lb Physical Exam Narrative: EXAM NARRATIVE: GENERAL: Patient is alert, awake and oriented x3. NECK: No jugular vein distension. HEENT: No cyanosis. No icterus. No pallor. HEART: Regular S1 and S2. No murmur, rub or gallop. LUNGS: Clear to auscultate bilaterally. ABDOMEN: Soft, nontender and nondistended. Positive bowel sounds. No guarding, rebound or tenderness. CENTRAL NERVOUS SYSTEM: Grossly nonfocal. EXTREMITIES: Lower extremities without edema bilaterally. SSS Data Data Completed and Pending: Pending at discharge Category Date Time Status [employer] request for service Routin e Exams 10/07/20 07:30 Taken Discharge Plan Discharge Patient Disposition: Home Condition: Stable Prescriptions: Continued finasteride [Proscar] 5 mg tablet 5 mg PO DAILY RF: 0 cyclobenzaprine 10 mg tablet 10 mg PO DAILY RF: 0 gabapentin 600 mg tablet 900 mg PO TID RF: 0 lidocaine HCl [Aspercreme (lidocaine HCl)] 4 % cream 1 applic TOPICAL BID RF: 0 acetaminophen [Tylenol Extra Strength] 500 mg tablet 500 mg PO Q6H PRN (Reason: Pain) RF: 0 nitroglycerin [Nitrostat] 0.4 mg tablet, sublingual 0.4 mg SUBLINGUAL Q5M PRN (Reason: Chest Pain) RF: 0 clopidogrel [Plavix] 75 mg tablet 75 mg PO DAILY RF: 0 metoprolol tartrate 50 mg tablet 25 mg PO BID RF: 0 aspirin [Adult Low Dose Aspirin] 81 mg tablet,delayed release (DR/EC) 81 mg PO DAILY RF: 0 hydrocodone-acetaminophen 7.5-325 mg tablet 1 tab PO Q6H PRN (Reason: pain) Qty: 12 RF: 0 famotidine 20 mg tablet 20 mg PO BID RF: 0 lisinopril 10 mg tablet 5 mg PO BID RF: 0 simvastatin 80 mg tablet 40 mg PO BEDTIME RF: 0 tamsulosin 0.4 mg tablet 0.4 mg PO DAILY RF: 0 Discharge Orders: Discharge Order (Routine); Ordered 10/08/20 Ordered By: Patrick Nieto Referrals: Patrick Nieto MD [Physician] - (Please follow-up with Dr. Nieto on November 19 with check-in at 2:45p..m. If you need to reschedule or have any questions. Please call ) Maryan Gil FNP [Nurse Practitioner] - (Please follow-up with Maryan Gil on October 14 at 1:15p.m. If you have any questions or need to reschedule. Please call ) Discharge Diet: Cardiac Discharge Activity: Increase activity as tolerated Patient Instructions: Coronary Artery Disease (DC), Left Heart Catheterization (DC), Coronary Angioplasty (DC), Hypertension (DC), Post Angiogram Home Care Instructions Activity Restrictions/Additional Instructions: Follow-up with Maryan Gil in 10 days. Follow-up with Dr. Nieto in 3 months. Attestations Medical Necessity Statement*: Patient can be discharged home Time Spent in Patient Care*: greater than 30 min Quality Metrics Clinical Quality Measures: During this hospital stay, did patient experience: None Coding Level of Care Code Established Pt Acute Configuration Management Consultant for Chg Fwd Patient Type Established History Detailed Exam Detailed Medical Decision Making Moderate Complexity
[2020-10-08 12:00] VITALS: BP 126/97; O2SAT 93
[2020-10-08 12:20] VITALS: BP 126/97; PULSE 60; RESP 18; TEMP 36.6; O2SAT 93
--- NOTE | 2020-10-08 12:36 | PC.NURSE ---
patient discharged home to self care at this time discharge instructions provided and explained with all discharge follow up appointments and care in place patient verbalized understanding. patient assisted to wheel chair and accompanied to private vehicle by staff patient alert oriented and stable upon departure all belongings and discharge instructions in hand
--- NOTE | 2020-10-08 16:04 | PC.RESP ---
Smoking Cessation information sent to patient.
== END 2020-10-08 12:34 | disposition home or self-care (01) ==
LOC: CSU 10:44
PROVIDERS: Admitting Provider Internal Medicine Cardiovascular Disease; PCP Emergency Medicine Emergency Medical Services; Visit Provider Internal Medicine Cardiovascular Disease
DX: I25.10 Atherosclerotic heart disease of native coronary artery without angina pectoris (principal); R07.9 Chest pain, unspecified; R94.39 Abnormal result of other cardiovascular function study; F17.210 Nicotine dependence, cigarettes, uncomplicated; I10 Essential (primary) hypertension; E78.5 Hyperlipidemia, unspecified; Z95.5 Presence of coronary angioplasty implant and graft; Z79.82 Long term (current) use of aspirin; Z82.49 Family history of ischemic heart disease and other diseases of the circulatory system; Z82.3 Family history of stroke
CPT/HCPCS: 12345; 36415; 80048; 85025; 85347; 93005; 93454; C1725; C1769; C1874; C1887; C1894; C9600; G0378; J1644; J2250; J2270; J3010; J3490; J7030; Q0163; Q9967

== ENCOUNTER → 2020-10-14 14:13 | Outpatient (BNVA) | payer OTHER, SELFPAY | PROVIDERS: PCP Emergency Medicine Emergency Medical Services; Visit Provider Nurse Practitioner Family | DX: I10 Essential (primary) hypertension (principal); I25.118 Atherosclerotic heart disease of native coronary artery with other forms of angina pectoris; Z71.6 Tobacco abuse counseling | CPT/HCPCS: 80048 ==

== ENCOUNTER 2021-03-09 09:49 | Outpatient (CLI) | payer OTHER, SELFPAY ==
--- NOTE | 2021-03-09 10:01 | CT_ITS ---
WS: [id number] CT LUMBAR SPINE, noncontrast. HISTORY: LOW BACK PAIN WITH RADICULOPATHY TECHNIQUE: Contiguous 2.5 mm axial imaging are performed. Sagittal and coronal reformats are submitte d and reviewed. All CT scans at [facility] use at least one of these dose optimization te chniques: automated exposure control; mA and/or kV adjustment per patient size (includes targeted exa ms where dose is matched to clinical indication); or iterative reconstruction. IV contrast: None DLP: 1933.05 mGycm COMPARISON: 01/25/2014 Posterior alignment is normal. Prior posterior lumbar fusion at L5-S1. No loosening or hardware fract ure. Mild disc space narrowing at L5-S1 with interbody body spacer. L1-2: Mild annular disc bulging. L2-3: Very slight asymmetric disc bulging to the LEFT. No significant stenosis. L3-4: Mild annular disc bulging with facet and ligamentum flavum hypertrophy. Mild RIGHT foraminal na rrowing. L4-5: Diffuse disc bulging and osteophytic ridging. Increased soft tissue extends into the subarticul ar recesses bilaterally and into the foramen. There is significant encroachment upon the L5 nerve michell ts bilaterally, greater on the RIGHT. Moderate facet joint arthritis. L5-S1: Large posterior laminectomy defect. Osteophytic ridging with no significant narrowing of the f oramen. Calcified plaque in the aorta. No aneurysm. Mild bilateral SI joint disease. CT/CT lumbar spine wo con* [id number] IMPRESSION: 1. Prior posterior lumbar fusion at L5-S1 with interbody spacer. Large posteri or laminectomy defect. No significant stenosis. 2. Moderate bilateral subarticular recess and foraminal stenosis at L4-5, more significant on the RIGHT. Suspect moderate-sized disc protrusion extending int o the RIGHT subarticular recess and lateral recess. 3. Minimal RIGHT foraminal stenosis at L3-4.
== END 2021-03-09 09:50 | disposition home or self-care (01) ==
LOC: RADWPI 09:51
PROVIDERS: PCP Emergency Medicine Emergency Medical Services; Visit Provider Emergency Medicine Emergency Medical Services
DX: M54.5 Low back pain (principal); M54.16 Radiculopathy, lumbar region; M43.26 Fusion of spine, lumbar region
CPT/HCPCS: 72131

== ENCOUNTER 2021-06-19 10:53 | Inpatient (IN) | payer OTHER, MEDICARE, SELFPAY ==
[2021-06-19 10:54] VITALS: BMI 24.3
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
[2021-06-19 12:43] LABS: Basophils # 0.1 10^3/uL (0.0-0.1); Basophils % 0.6 %; Eosinophils # 0.1 10^3/uL (0.0-0.8); Eosinophils % 0.4 %; Hematocrit 44.9 % (42.0-52.0); Hemoglobin 15.8 g/dL (11.7-16.6); Lymphocytes # 2.5 10^3/uL (0.8-4.8); Lymphocytes % 18.4 %; Mean Corpuscular HGB Conc 35.2 g/dL (30.0-36.0); Mean Corpuscular Hemoglobin 32.9 pg (28.0-34.0); Mean Corpuscular Volume 93.5 fl (80-94); Mean Platelet Volume 11.8 fL (7.4-10.4); Monocytes # 1.3 10^3/uL (0.2-0.9); Monocytes % 9.4 %; Neutrophils # 9.45 10^3/uL (1.8-7.7); Neutrophils % 70.9 %; Nucleated Red Blood Cells % 0 %; Platelet Count 232 10^3/cmm (130-400); Red Cell Distribution Width 11.9 % (12.1-15.1); White Blood Count 13.4 10^3/uL (4.0-10.0)
[2021-06-19 13:06] VITALS: BP 141/93; PULSE 105; TEMP 37.4; O2SAT 97
[2021-06-19] MEDS: LORazepam 1 mg Tablet 2 MG PO (13:09)
[2021-06-19] MEDS: acetaminophen 500 mg Tablet 1000 MG PO (13:10)
[2021-06-19 13:22] LABS: Alanine Aminotransferase 16 U/L (0-41); Albumin Level 4.6 g/dL (3.5-5.2); Alkaline Phosphatase 69 IU/L (40-130); Aspartate Amino Transferase 21 U/L (0-40); Blood Urea Nitrogen 13 mg/dL (8-23); Calcium 9.1 mg/dL (8.5-10.5); Carbon Dioxide 21 mmol/L (22-29); Chloride 103 mmol/L (98-107); Globulin 3.1 g/dL (1.3-4.6); Glomerular Filtration Rate 98.6 mL/min (90-130); Glucose 98 mg/dL (65-115); Osmolality Calculated 288 mOsm/kg (285-295); Sodium 139 mmol/L (136-145); Thyroid Stimulating Hormone 2.34 uIU/mL (0.27-4.20); Total Bilirubin 0.6 mg/dL (0.15-1.2); Total Protein 7.7 g/dL (6.6-8.7)
[2021-06-19 13:23] LABS: Acetaminophen < 5.0 ug/mL (10-30); Salicylate < 0.3 mg/dL (3-10)
[2021-06-19] MEDS: nicotine 21 mg Patch 1 PATCH TRANSDERMA (13:52)
[2021-06-19 14:29] VITALS: BP 123/90; PULSE 78; RESP 20; TEMP 36.8; O2SAT 96
[2021-06-19 16:33] LABS: Amphetamines Screen Urine Negative (Negative); Barbiturates Screen Urine Negative (Negative); Benzodiazepines Screen Urine Negative (Negative); Cocaine Screen Urine Negative (Negative); Opiate Screen Urine Negative (Negative); PCP Screen Urine Negative (Negative); THC Screen Urine Positive (Negative)
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
[2021-06-19 22:00] VITALS: BP 126/77; PULSE 95; RESP 18; TEMP 36.9; O2SAT 97
[2021-06-20 06:00] VITALS: RESP 18
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
[2021-06-20] MEDS: famotidine 20 mg Tablet PO ×2 (10:27→17:03)
[2021-06-20] MEDS: atorvastatin 40 mg Tablet 20 MG PO (10:27)
[2021-06-20] MEDS: metoprolol tartrate 50 mg Tablet 25 MG PO ×2 (10:27→17:03)
[2021-06-20] MEDS: gabapentin 300 mg Capsule 900 MG PO ×3 (10:27→20:17)
[2021-06-20] MEDS: aspirin 81 mg EC Tablet PO (10:27)
[2021-06-20] MEDS: finasteride 5 mg Tablet PO (10:27)
[2021-06-20] MEDS: lisinopril 5 mg Tablet PO ×2 (10:28→17:03)
[2021-06-20] MEDS: clopidogrel 75 mg Tablet PO (10:28)
[2021-06-20] MEDS: nicotine 21 mg Patch 1 PATCH TRANSDERMA (11:02)
[2021-06-20] MEDS: BuSPIRONE 10 mg Tablet 15 MG PO ×2 (12:05→17:03)
[2021-06-20 14:00] VITALS: BP 128/89; PULSE 86; RESP 18; TEMP 36.3; O2SAT 96
[2021-06-20] MEDS: acetaminophen 325 mg Tablet 650 MG PO (17:06)
[2021-06-20] MEDS: trazodone 50 mg Tablet PO (20:17)
[2021-06-20] MEDS: cyclobenzaprine 10 mg Tablet PO (20:17)
[2021-06-20] MEDS: hyDROXYzine 25 mg Capsule 50 MG PO (20:17)
[2021-06-20 20:57] VITALS: BP 105/69; PULSE 85; RESP 18; TEMP 36.8; O2SAT 97
--- NOTE | 2021-06-21 03:09 | PC.NURSE ---
PRN vistaril, and trazadone given for anxiety and insomnia. Patient tolerated well. Will continue to monitor.
[2021-06-21 06:00] VITALS: BP 127/83; PULSE 92; RESP 18; TEMP 36.7; O2SAT 97
[2021-06-21] MEDS: metoprolol tartrate 50 mg Tablet 25 MG PO ×2 (09:00→19:01)
[2021-06-21] MEDS: finasteride 5 mg Tablet PO (09:48)
[2021-06-21] MEDS: famotidine 20 mg Tablet PO ×2 (09:48→18:19)
[2021-06-21] MEDS: clopidogrel 75 mg Tablet PO (09:48)
[2021-06-21] MEDS: BuSPIRONE 10 mg Tablet 15 MG PO ×2 (09:48→18:19)
[2021-06-21] MEDS: atorvastatin 40 mg Tablet 20 MG PO (09:49)
[2021-06-21] MEDS: gabapentin 300 mg Capsule 900 MG PO ×3 (09:49→21:37)
[2021-06-21] MEDS: lisinopril 5 mg Tablet PO ×2 (09:51→19:00)
[2021-06-21] MEDS: aspirin 81 mg EC Tablet PO (09:51)
[2021-06-21] MEDS: nicotine 21 mg Patch 1 PATCH TRANSDERMA (10:34)
[2021-06-21 14:00] VITALS: BP 98/64; PULSE 82; RESP 18; TEMP 37.1; O2SAT 93
[2021-06-21] MEDS: acetaminophen 325 mg Tablet 650 MG PO (15:10)
--- NOTE | 2021-06-21 18:56 | PM.NPN ---
Subjective NPU Subjective: Interval history: Patient presents today reporting that he is feeling better having had a good night sleep. He reports he is having some anxiety and we discussed the risk benefits and alternatives of starting BuSpar 50 mg p.o. twice daily and he understood and agreed to proceed as documented in his note. He reports that before he was just focus completely on getting discharged but now he realizes that it can be helpful here and he has had some positive plans that have materialized while he is here. We discussed working with the treatment team the morning to get a plan for discharge. Mental Status Exam MSE Comments: This is a well-nourished, well-developed, white male, in hospital scrubs, with limited grooming and eye contact. No abnormal movements, except for mild psychomotor retardation. He was cooperative with exam in no acute distress. Speech was decreased rate and volume. Mood described as much better; affect congruent. Thought process, organized. Thought content: patient denied any suicidal or homicidal ideation, there were no delusions reported or noted, patient denied any auditory or visual hallucinations. Attention, concentration, and memory appear intact but none were formally tested. He is alert and oriented times three. Insight and judgment appears limited, but improving. Impulse control appears limited. Vitals/I&O/Wt Last Vital Signs Temp 97.8 F 06/21/21 21:24 Pulse 72 06/21/21 21:24 Resp 16 06/21/21 21:24 BP 102/78 06/21/21 21:24 Pulse Ox 96 06/21/21 21:24 Weight last 48 hrs Weight 77.111 kg Data NPU : 06/19/21 12:37 06/19/21 12:37 A&P Additional A&P Information (1) Hyperlipidemia LDL goal <70: (2) Encounter for smoking cessation counseling: (3) Coronary artery disease: (4) HTN (hypertension): (5) Adjustment disorder with mixed disturbance of emotions and conduct: Additional A&P Information This is a 60 year old, white male, with a long history of depression and psycho-social challenges that have led to emotional distress, who presents with anxiety, some depression, and bereavement. 1. Continue current medication. Start BuSpar 15 mg p.o. twice daily 2. Encourage individual, group, and milieu therapy. 3. Continue q-15 minute checks for safety. 4. Recommend sober living treatment at the highest level of care to which the patient is willing to commit Involuntary Hold Information 96 Hour Hold: 96 Hour Involuntary Admission: Yes 96 Hour Hold Ending Date: 06/25/21 96 Hour Hold Ending Time: 13:00 Attestations NPU Medical Necessity Statement*: Inpatient hospitalization is medically necessary and the clinically appropriate intervention, at this time. We will monitor medications and make changes as indicated. Patient will be in the hospital for over two midnights. Likely length of stay is 1-3 days. Coding Level of Care Code Acute Billing Specialist for Manjit Barney
[2021-06-21 21:24] VITALS: BP 102/78; PULSE 72; RESP 16; TEMP 36.6; O2SAT 96
[2021-06-21] MEDS: hyDROXYzine 25 mg Capsule 50 MG PO (21:37)
[2021-06-21] MEDS: trazodone 50 mg Tablet PO (21:37)
[2021-06-21] MEDS: cyclobenzaprine 10 mg Tablet PO (21:37)
--- NOTE | 2021-06-21 21:40 | PC.NURSE ---
pt requested meds for sleep and anxiety, trazodone 50mg po for sleep and vistaril 50mg po for anxiety given.
--- NOTE | 2021-06-22 03:10 | PC.NURSE ---
PM assessment at the beginning of shift, pt was on the bench near pt phone, tearful. During conversation, pt revealed that his sister in [place] is very ill. She has been on dialysis and developed septic shock from an infection at the port. She is not able to respond to him at all. Pt stated, She is my only living sibling. Her is a philanderer who is drunk all the time, and he has cancelled all life saving measures for my sister. There is no one at her side holding her hand, she is dying and I am here. I did make statements that I was Suicidal and that I would like to kill him. I did not mean that. However, I witnessed every from of depravity while staying at their home. He walks around naked, drunk. He has not been to the hospital. Pt is upset that he has not been able to stay with her due to financial obligations and the cost of staying in [place]. Pt went on to talk about how he needs to go home from [facility], to continue care with his [facility] for his [facility]. He states, I need something to keep my hands and my mind busy.I need to go home. 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 Prefers 1970's classic rock and blues. Pt requested nurse to try to reach out to the hospital that his sister is in. Nurse agreed to get the number and provide it to him to make needed contacts. PT fears that she doesn't know that I was there, and she could not hear me say 'I LOVE YOU'. Pt was tearful but seems to calm down with 1:1 conversation. Med nurse provided Visteril 50mg PO for anxiety relief, this seems to be effective. pt sleeping.
[2021-06-22 06:00] VITALS: BP 127/86; PULSE 80; RESP 16; TEMP 37.1; O2SAT 97
--- NOTE | 2021-06-22 07:21 | PC.NURSE ---
pt approached nurses station and strongly encouraged a staff member to talk to him in his room and expressed it was urgent pt stated that he said good morning to another male pt (room 170 at this time), which that pt replied with le monroyhole pt stated he did not understand why pt in room 170 would make such statement so he asked whats that for pt in 170 replied not you, your brothers pt stated he had no brothers so this did not make sense. pt said he feels threatened and no longer safe in this unit pt in room 153-1 at this time stated he is twice the age of the pt in 170 and half the size but he has a temper himself and he will not stand down pt in 170 repeatedly called pt from room 153-1 an asshole. pt stated multiple times he does not feel safe around this pt and wants to be moved or have other pt moved.
--- NOTE | 2021-06-22 07:44 | PC.NURSE ---
Patient reported that male peer was making him not feel safe on the unit, That knucklehead over there needs to get it together. I am about self-preservation. If he doesn't cool it things could get bad and he is half my age. I am feeling very threatened right now and that you guys can't keep me safe. Spoke with patient about his concerns, addressed threat and patients at this time.
[2021-06-22] MEDS: famotidine 20 mg Tablet PO ×2 (08:28→22:13)
[2021-06-22] MEDS: finasteride 5 mg Tablet PO (08:28)
[2021-06-22] MEDS: metoprolol tartrate 50 mg Tablet 25 MG PO ×2 (08:28→22:12)
[2021-06-22] MEDS: gabapentin 300 mg Capsule 900 MG PO ×3 (08:28→22:12)
[2021-06-22] MEDS: atorvastatin 40 mg Tablet 20 MG PO (08:28)
[2021-06-22] MEDS: clopidogrel 75 mg Tablet PO (08:28)
[2021-06-22] MEDS: BuSPIRONE 10 mg Tablet 15 MG PO ×2 (08:28→22:11)
[2021-06-22] MEDS: lisinopril 5 mg Tablet PO ×2 (08:28→22:12)
[2021-06-22] MEDS: aspirin 81 mg EC Tablet PO (08:28)
[2021-06-22] MEDS: nicotine 21 mg Patch 1 PATCH TRANSDERMA (08:31)
[2021-06-22] MEDS: acetaminophen 325 mg Tablet 650 MG PO (11:34)
[2021-06-22 14:00] VITALS: BP 123/82; PULSE 90; RESP 20; TEMP 36.2; O2SAT 94
--- NOTE | 2021-06-22 15:19 | N[facility].GN ---
[facility] Group Topic:Depression BINGO General Mood of Group: General mood was talkative. Seemed like most everyone in the group was talkative. This group was exceptionable large. They seemed to all want to speak at the same time. This patient came to group on time and dressed appropriate with good hygiene. This patient did participate and did ask questions.Fahad was very talkative, did participate, he was very respectful. His mental health seems to be improving.
--- NOTE | 2021-06-22 18:05 | PM.NPN ---
Subjective [facility] Subjective: Interval history: Patient presents today reporting that he feels like he is getting better today. We discussed looking at tomorrow as a possible discharge and he understood agreed proceed as documented in his note. Reports his anxiety is uncontrolled he started to have a real plan a lot of press forward in his relationships and dealing with the stress of his life in a straightforward fashion. He identifies that getting back into psychotherapy will be beneficial. Reports eating and sleeping better. Mental Status Exam MSE Comments: This is a well-nourished, well-developed, white male, in hospital scrubs, with adequate grooming and eye contact. No abnormal movements. He was cooperative with exam in no acute distress. Speech was more normal rate and volume. Mood described as much better; affect congruent. Thought process, organized. Thought content: patient denied any suicidal or homicidal ideation, there were no delusions reported or noted, patient denied any auditory or visual hallucinations. Attention, concentration, and memory appear intact but none were formally tested. He is alert and oriented times three. Insight and judgment appears improving. Impulse control appears fair. 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 1. Continue current medication. 2. Encourage individual, group, and milieu therapy. 3. Continue q-15 minute checks for safety. 4. Recommend sober living treatment at the highest level of care to which the patient is willing to commit Involuntary Hold Information 96 Hour Hold: 96 Hour Involuntary Admission: Yes 96 Hour Hold Ending Date: 06/25/21 96 Hour Hold Ending Time: 13:00 Attestations [facility] Medical Necessity Statement*: Inpatient hospitalization is medically necessary and the clinically appropriate intervention, at this time. We will monitor medications and make changes as indicated. Likely length of stay is 1-2 days. Coding Level of Care Code Acute [employer] Person for Manjit Barney
--- NOTE | 2021-06-22 18:17 | PC.RESP ---
SMOKING CESSATION INFORMATION SENT TO PATIENT.
[2021-06-22 21:08] VITALS: BP 131/92; PULSE 108; RESP 15; TEMP 36.8; O2SAT 96
[2021-06-22] MEDS: cyclobenzaprine 10 mg Tablet PO (22:11)
[2021-06-23 06:00] VITALS: BP 137/82; PULSE 65; RESP 15; TEMP 36.8; O2SAT 99
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
[2021-06-23] MEDS: famotidine 20 mg Tablet PO (08:12)
[2021-06-23] MEDS: gabapentin 300 mg Capsule 900 MG PO (08:12)
[2021-06-23] MEDS: BuSPIRONE 10 mg Tablet 15 MG PO (08:12)
[2021-06-23] MEDS: aspirin 81 mg EC Tablet PO (08:13)
[2021-06-23] MEDS: finasteride 5 mg Tablet PO (08:13)
[2021-06-23] MEDS: atorvastatin 40 mg Tablet 20 MG PO (08:13)
[2021-06-23] MEDS: clopidogrel 75 mg Tablet PO (08:13)
[2021-06-23] MEDS: lisinopril 5 mg Tablet PO (08:13)
[2021-06-23] MEDS: metoprolol tartrate 50 mg Tablet 25 MG PO (08:14)
[2021-06-23 08:23] VITALS: BP 137/82; PULSE 65; RESP 15; TEMP 36.8; O2SAT 99
[2021-06-23 08:34] VITALS: BP 128/78; PULSE 87; RESP 20; TEMP 36.3; O2SAT 96
--- NOTE | 2021-06-23 11:47 | PC.NURSE ---
called [facility] to cancel [facility] Ann, called [phone]
--- NOTE | 2021-06-23 12:03 | PC.NURSE ---
discharge medications [place] [facility] [place], spoke to Larissa. Buspar 15 mg PO BID Trazodone 50 mg PO @ HS PRN for insomina
--- NOTE | 2021-06-23 12:21 | DCPLANNER ---
IMM completed on 06/23/2021 @ 0855.
== END 2021-06-23 10:39 | disposition home or self-care (01) | DRG 882 ==
LOC: ER 12:10 → NP 14:07
PROVIDERS: Admitting Provider Psychiatry & Neurology Psychiatry; Emergency Provider Family Medicine; PCP Emergency Medicine Emergency Medical Services; Visit Provider Psychiatry & Neurology Psychiatry
DX: F43.25 Adjustment disorder with mixed disturbance of emotions and conduct (principal); I25.10 Atherosclerotic heart disease of native coronary artery without angina pectoris; Z95.5 Presence of coronary angioplasty implant and graft; I10 Essential (primary) hypertension; E78.5 Hyperlipidemia, unspecified; F17.210 Nicotine dependence, cigarettes, uncomplicated; F41.9 Anxiety disorder, unspecified; F32.9 Major depressive disorder, single episode, unspecified; Z63.4 Disappearance and death of family member; Z79.02 Long term (current) use of antithrombotics/antiplatelets; Z79.82 Long term (current) use of aspirin; Z79.891 Long term (current) use of opiate analgesic
CPT/HCPCS: 80053; 80306; 80307; 84443; 85025; 97150; 97165; 99285

== ENCOUNTER 2021-07-05 19:07 | Emergency (ER) | payer OTHER, MEDICARE, SELFPAY ==
[2021-07-05] VITALS (10 sets, daily range): BP systolic 78–111; BP diastolic 53–70; PULSE 61–101; RESP 14–18; TEMP 36.4; O2SAT 92–97; BMI 27.1
--- NOTE | 2021-07-05 19:29 | XRR_ITS ---
PROCEDURE INFORMATION: Exam: XR Chest Exam date and time: 07/05/2021 7:29 PM Age: 60 years old Clinical indication: Chest pressure; Prior surgery; Surgery type: Coronary stents; Patient HX: C/O chest pain. ; Additional info: Cp TECHNIQUE: Imaging protocol: XR of the chest. Views: 1 view. COMPARISON: CR XR chest 1V portable [id number] 07/02/2020 2:05 PM FINDINGS: Lungs: Unchanged hyperinflation with probable fibrosis. No consolidation. Pulmonary vascularity is within normal limits. Pleural spaces: Unremarkable. No pleural effusion. No pneumothorax. Heart/Mediastinum: Unremarkable. No cardiomegaly. Bones/joints: No acute abnormality. Postoperative changes in the cervical spine are noted. XR/XR chest 1V portable [id number] IMPRESSION: No acute findings. Unchanged exam. Radiation Dose CTDIVOL = (mGy): DLP = (mGy-cm)
[2021-07-05] MEDS: sodium chloride 0.9% 1,000 ML 999 ML IV ×2 (19:49→21:53)
[2021-07-05] MEDS: nitroglycerin 1 gm/inch oint Pkt 0.5 INCH TOPICAL (19:55)
[2021-07-05] MEDS: aspirin 325 mg Tablet PO (19:55)
[2021-07-05 19:57] LABS: Basophils # 0.1 10^3/uL (0.0-0.1); Basophils % 0.9 %; Eosinophils # 0.2 10^3/uL (0.0-0.8); Eosinophils % 2.4 %; Hematocrit 38.4 % (42.0-52.0); Hemoglobin 13.1 g/dL (11.7-16.6); Lymphocytes # 2.4 10^3/uL (0.8-4.8); Lymphocytes % 32.7 %; Mean Corpuscular HGB Conc 34.1 g/dL (30.0-36.0); Mean Corpuscular Hemoglobin 32.5 pg (28.0-34.0); Mean Corpuscular Volume 95.3 fl (80-94); Mean Platelet Volume 11.1 fL (7.4-10.4); Monocytes # 0.8 10^3/uL (0.2-0.9); Monocytes % 10.3 %; Neutrophils # 3.93 10^3/uL (1.8-7.7); Neutrophils % 53.4 %; Nucleated Red Blood Cells % 0 %; Platelet Count 214 10^3/cmm (130-400); Red Blood Count 4.03 10^6/uL (4.1-5.3); White Blood Count 7.4 10^3/uL (4.0-10.0)
--- NOTE | 2021-07-05 20:02 | ED_ITS ---
HPI - Chest Pain General: Chief Complaint: Chest Pain Stated Complaint: Chest Pain Time Seen by Provider: 07/05/21 19:25 History of Present Illness: HPI narrative: 60-year-old male with coronary disease history, multiple stents in the past. He continues to smoke. He had an episode of chest pain that started 45 minutes prior to arrival. He states he was playing with a dog when it happened. He was short of breath with the pain. It radiated to both forearms. He has had this similar pain in the past with coronary events his pain is significantly decreased now. He is no longer really short of breath he states that he would not like pain medication to help him control it. He did not get diaphoretic or nauseated. 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): minute(s) Timing of current episode: constant and still present Prior episodes: Yes Onset: during exertion Pain location: substernal Pain radiation: right arm and left arm Severity: similar to previous episodes Quality: aching Relieving factors: nothing Exacerbating factors: nothing Context: other Associated symptoms: Reports dyspnea and sense of impending doom; Deny abdominal pain, diaphoresis, fever(s), leg edema, nausea, palpitations, syncope or vomiting Treatment prior to arrival: none Review of Systems Const: Denies: fever(s) or diaphoresis Card: Denies: palpitations or syncope Resp: Reports: dyspnea GI: Denies: abdominal pain, nausea or vomiting [facility] ED PFSH: Medical History Coronary artery disease HTN (hypertension) Hyperlipidemia LDL goal <70 Surgical History S/P PTCA (percutaneous transluminal coronary angioplasty) Family History Sister Stroke Mother Stroke CAD (coronary artery disease) Social History Smoking and tobacco status: current some day smoker Alcohol intake: never Physical Exam Const: COMMON NORMALS: patient oriented x3 and alert GENERAL APPEARANCE: cooperative and anxious HENMT: COMMON NORMALS: normocephalic HEAD & SCALP: normocephalic Chest: COMMONS NORMALS: normal inspection of the chest Resp: COMMON NORMALS: normal respiratory effort, No use of accessory muscles and clear to auscultation bilaterally AUSCULTATION: clear to auscultation bilaterally Cardio: COMMON NORMALS: regular rate and regular rhythm RATE: regular rate RHYTHM: regular rhythm GI: COMMON NORMALS: Normal to inspection, nondistended, normoactive bowel sounds present, Soft to palpation and non-tender PALPATION: Yes Soft to palpation Neuro: COMMON NORMALS: patient oriented x3 SENSORIUM/ORIENTATION: Yes alert Course Consultations: Consultation #1: mingo Time: 23:13 Vital Signs: Vital signs: Vital Signs Temperature 97.5 F L 07/05/21 19:16 Pulse Rate 70 07/05/21 23:27 Respiratory Rate 18 07/05/21 23:27 Blood Pressure 106/66 07/05/21 23:27 Pulse Oximetry 94 07/05/21 23:27 MDM - Chest Pain 2 MDM Narrative: Medical decision making narrative: 60-year-old male with a history of coronary disease. He presents with chest pain. Patient was mildly hypotensive on arrival, but blood pressure improved to normotensive status. He did not want any morphine or other pain medication for his chest discomfort, so small amount of Nitropaste was placed on his chest. He slowly became hypotensive but this. It was removed, but he remained hypotensive for a couple of hours following. Blood pressure now 106/66, heart rate 70, respirations 15, oxygen saturations 90%. His EKG is a normal EKG with a normal sinus rhythm rate of [address] and no ST changes. His chest x-ray is not remarkable. Her first troponin was negative, and at 2 hours has a delta of 9. With his heart score, history, and delta. He qualifies for observation. Also his episode of hypotension is concerning. He has been given a liter and a half of fluid may require more versus a pressor. Spoke with hospitalist, recommendations are CTA given hypotension and mild hypoxia which has been ordered. He will go to the ICU. 23:34 1 counseled on this patient's diagnosis and treatment plan, he tells me that he needs to go home. He states I have responsibilities at home . His pain is resolved. I expressed to him the need to stay in the hospital for close monitoring, testing, and treatment of his blood pressure and chest pain, with the warning that he has significant mortality risk and could given his history and presentation. He assures me that he will contact his hotel administrative assistant later this morning. Despite my urging him to stay, he chose to sign out AGAINST MEDICAL ADVICE. Lab Data: Labs: Lab Results 07/05/21 07/05/21 07/05/21 19:45 19:45 19:45 WBC 7.4 10^3/uL 10^3/ uL (4.0-10.0) RBC 4.03 10^6/uL L 10 ^6/uL (4.1-5.3) Hgb 13.1 g/dL g/dL (11.7-16.6) Hct 38.4 % L % (42.0-52.0) MCV 95.3 fl H fl (80-94) MCH 32.5 pg pg (28.0-34.0) MCHC 34.1 g/dL g/dL (30.0-36.0) RDW 12.0 % L % (12.1-15.1) Plt Count 214 10^3/cmm 10^3 /cmm (130-400) MPV 11.1 fL H fL (7.4-10.4) Neut % (Auto) 53.4 % % Lymph % (Auto) 32.7 % % [place] % (Auto) 10.3 % % Eos % (Auto) 2.4 % % Baso % (Auto) 0.9 % % Neut # (Auto) 3.93 10^3/uL 10^3 /uL (1.8-7.7) Lymph # (Auto) 2.4 10^3/uL 10^3/ uL (0.8-4.8) [place] # (Auto) 0.8 10^3/uL 10^3/ uL (0.2-0.9) Eos # (Auto) 0.2 10^3/uL 10^3/ uL (0.0-0.8) Baso # (Auto) 0.1 10^3/uL 10^3/ uL (0.0-0.1) Nucleated RBC % (a uto) 0 % % Nucleated RBCs # 0.0 /100WBC /100W BC Sodium 141 mmol/L mmol/L (136-145) Potassium 4.1 mmol/L mmol/L (3.5-5.1) Chloride 105 mmol/L mmol/L (98-107) Carbon Dioxide 25 mmol/L mmol/L (22-29) Anion Gap 15.1 (5-19) BUN 15 mg/dL mg/dL (8-23) Creatinine 1.0 mg/dL mg/dL (0.7-1.2) GFR Calculation 76.2 mL/min L mL/ min (90-130) Glucose 104 mg/dL mg/dL (65-115) Calculated Osmolal ity 293 mOsm/kg mOsm/ kg (285-295) Lactate Calcium 8.6 mg/dL mg/dL (8.5-10.5) Total Bilirubin 0.2 mg/dL mg/dL (0.15-1.2) AST 16 U/L U/L (0-40) ALT 18 U/L U/L (0-41) Alkaline Phosphata se 49 IU/L IU/L (40-130) Troponin T Baselin e 6 ng/L ng/L (0-15) Troponin T 120 Min [place] Delta Troponin T NT-Pro-B Natriuret Pep 59 pg/mL pg/mL (0-125) Total Protein 6.1 g/dL L g/dL (6.6-8.7) Albumin 4.1 g/dL g/dL (3.5-5.2) Globulin 2.0 g/dL g/dL (1.3-4.6) 07/05/21 07/05/21 21:37 22:25 WBC RBC Hgb Hct MCV MCH MCHC RDW Plt Count MPV Neut % (Auto) Lymph % (Auto) [place] % (Auto) Eos % (Auto) Baso % (Auto) Neut # (Auto) Lymph # (Auto) [place] # (Auto) Eos # (Auto) Baso # (Auto) Nucleated RBC % (a uto) Nucleated RBCs # Sodium Potassium Chloride Carbon Dioxide Anion Gap BUN Creatinine GFR Calculation Glucose Calculated Osmolal ity Lactate 0.9 mmol/L mmol/L (0.5-2.2) Calcium Total Bilirubin AST ALT Alkaline Phosphata se Troponin T Baselin e Troponin T 120 Min [place] 15.60 ng/L H ng/L (0-15) Delta Troponin T 9.60 ABS# ABS# (0-10) NT-Pro-B Natriuret Pep Total Protein Albumin Globulin Discharge Plan Discharge Patient Disposition: Left Against Medical Advice Clinical Impression: Acute hypotension Chest pain Qualifiers: Chest pain type: unspecified Qualified Code(s): R07.9 - Chest pain, unspecified Condition: Fair Prescriptions: No Action finasteride [Proscar] 5 mg tablet 5 mg PO DAILY RF: 0 cyclobenzaprine 10 mg tablet 10 mg PO BEDTIME RF: 0 gabapentin 600 mg tablet 900 mg PO TID RF: 0 nitroglycerin [Nitrostat] 0.4 mg tablet, sublingual 0.4 mg SUBLINGUAL Q5M PRN (Reason: Chest Pain) RF: 0 clopidogrel [Plavix] 75 mg tablet 75 mg PO DAILY RF: 0 metoprolol tartrate 50 mg tablet 25 mg PO BID RF: 0 aspirin [Adult Low Dose Aspirin] 81 mg tablet,delayed release (DR/EC) 81 mg PO DAILY RF: 0 hydrocodone-acetaminophen 7.5-325 mg tablet 1 tab PO Q6H PRN (Reason: pain) Qty: 12 RF: 0 simvastatin 40 mg Tablet 40 mg PO DAILY Qty: 0 RF: 0 famotidine 20 mg Tablet 20 mg PO BID Qty: 0 RF: 0 lisinopril 5 mg Tablet 5 mg PO BID Qty: 0 RF: 0 buspirone 10 mg Tablet 15 mg PO 0900,2100 30 Days Qty: 90 RF: 1 Referrals: Thomas Moy DO [Primary Care Provider] - Coding Level of Care Code ED Echocardiography Radiology Technologist for Chg Fwd Exam Detailed
[2021-07-05 20:22] LABS: Troponin(5th) Baseline 6 ng/L (0-15)
[2021-07-05 20:30] LABS: Alanine Aminotransferase 18 U/L (0-41); Albumin Level 4.1 g/dL (3.5-5.2); Alkaline Phosphatase 49 IU/L (40-130); Anion Gap 15.1 (5-19); Aspartate Amino Transferase 16 U/L (0-40); Blood Urea Nitrogen 15 mg/dL (8-23); Calcium 8.6 mg/dL (8.5-10.5); Carbon Dioxide 25 mmol/L (22-29); Chloride 105 mmol/L (98-107); Creatinine Clr Calc Pharmacy 92.0524; Glomerular Filtration Rate 76.2 mL/min (90-130); Glucose 104 mg/dL (65-115); NT Pro B Type Natriuretic Pept 59 pg/mL (0-125); Osmolality Calculated 293 mOsm/kg (285-295); Potassium 4.1 mmol/L (3.5-5.1); Sodium 141 mmol/L (136-145); Total Bilirubin 0.2 mg/dL (0.15-1.2); Total Protein 6.1 g/dL (6.6-8.7)
--- NOTE | 2021-07-05 20:56 | PC.NURSE ---
nitro paste taken off of anterior left chest. site wiped thoroughly to ensure removal of medication. dr. treadwell advised of this and agreed with intervention.
--- NOTE | 2021-07-05 21:30 | ECG_ITS ---
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 Measurements Intervals [place] Rate: 62 P: 65 IA: 170 QRS: 36 QRSD: 90 T: 56 QT: 442 QTc: 450 Interpretive Statements SINUS RHYTHM Compared to ECG 10/07/2020 10:18:19 No significant changes Electronically Signed On 07-06-2021 23:52:37 CDT by Artie Gerard M.D. [id number]
[2021-07-05 22:46] LABS: Lactate (Lactic Acid level) 0.9 mmol/L (0.5-2.2)
--- NOTE | 2021-07-05 22:59 | PC.NURSE ---
dopamine drip on hold at this time. pt had one episode of bp that was 70 systolic but found patient to be lying on his side with bp cuff above level of heart. had patient roll over to his back and recheck bp to be in the 90's systolic. advised dr. treadwell of bp event and agreed to hold dopamine.
== END 2021-07-06 04:31 | disposition left against medical advice (07) ==
PROVIDERS: Emergency Provider Emergency Medicine; PCP Emergency Medicine Emergency Medical Services
DX: R07.9 Chest pain, unspecified (principal); Z53.29 Procedure and treatment not carried out because of patient's decision for other reasons; I25.10 Atherosclerotic heart disease of native coronary artery without angina pectoris; I10 Essential (primary) hypertension; E78.5 Hyperlipidemia, unspecified; F17.200 Nicotine dependence, unspecified, uncomplicated; Z82.49 Family history of ischemic heart disease and other diseases of the circulatory system
CPT/HCPCS: 71045; 80053; 83605; 83880; 84484; 85025; 93005; 96360; 96361; 99284; J7030

== ENCOUNTER 2021-07-06 08:06 | Inpatient (IN) | payer OTHER, MEDICARE, SELFPAY ==
[2021-07-06] VITALS (10 sets, daily range): BP systolic 96–141; BP diastolic 71–91; PULSE 57–87; RESP 12–71; TEMP 36.6; O2SAT 95–100; BMI 27.1
--- NOTE | 2021-07-06 08:15 | ECG_ITS ---
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 Measurements Intervals [place] Rate: 74 P: 73 MA: 163 QRS: 49 QRSD: 89 T: 67 QT: 393 QTc: 437 Interpretive Statements SINUS RHYTHM WITH OCCASIONAL SUPRAVENTRICULAR PREMATURE COMPLEXES Compared to ECG 07/05/2021 21:28:57 No significant changes Electronically Signed On 07-06-2021 23:42:43 CDT by Artie Gerard M.D. [email or web address] county hospitalLeCabmercy memorial hospitaliLink/store/[id number]
--- NOTE | 2021-07-06 08:15 | XR_ITS ---
WS: [id number] Exam: XR chest 1V portable [id number] Date/Time of Exam: 07/06/2021 8:49 AM Reason For Exam: dyspnea/cough Comparison 07/05/2021. The lungs are hyperinflated and clear. No pleural effusions. Normal cardiomediastinal structures. Pro bable chronic fibrous changes in the upper lobes. Postoperative changes in the lower C-spine. Overall , no change since last exam. Monitoring leads superimpose the chest. XR/XR chest 1V portable [id number] IMPRESSION: 1. No acute process. No change.
--- NOTE | 2021-07-06 08:20 | ED_ITS ---
HPI - Chest Pain General: Chief Complaint: Chest Pain Stated Complaint: CHEST PAIN/HEART ATTACK ON 07/05 Time Seen by Provider: 07/06/21 08:14 History of Present Illness: HPI narrative: 60-old male with a known history of coronary disease was seen last night had a delta troponin of ( 9per ER notes) with an increased heart score and was advised to be admitted he declined and ended up leaving AMA he now returns complaining of chest discomfort. Patient is still having some chest discomfort and mild shortness of breath. He denies any recent fever sweats or chills. Earlier this month he was admitted to psychiatry for suicidal ideation. He makes no comments in that regard at this time. MD complaint: chest heaviness and chest discomfort Pertinent past history: coronary artery disease Onset (ago): hour(s) Timing of current episode: episodic Prior episodes: Yes Onset: during exertion Pain location: substernal and left chest Severity: moderate Quality: tightness and heaviness Relieving factors: nothing Exacerbating factors: nothing Associated symptoms: Reports dyspnea; Deny abdominal pain, diaphoresis, fever(s), leg edema, nausea, palpitations, sense of impending doom, syncope or vomiting Treatment prior to arrival: aspirin Review of Systems Const: Denies: fever(s) or diaphoresis ENMT: Denies: throat pain, ear or mastoid pain, nasal discharge or nasal congestion Card: Denies: palpitations or syncope Resp: Reports: dyspnea GI: Denies: abdominal pain, nausea or vomiting : Denies: flank pain, dysuria, urinary frequency or urinary urgency Skin/Breast: Denies: rash or pruritus PFSH ED PFSH: Medical History BPH (benign prostatic hyperplasia) Coronary artery disease Patient is awaiting bypass surgery for multivessel coronary artery disease including significant left main. Metoprolol reinitiated. We will also continue aspirin, statin HTN (hypertension) Blood pressure is on the lower side we will hold antihypertensive including lisinopril but will resume metoprolol 12.5 mg due to coronary disease and angina Hyperlipidemia LDL goal <70 Continue statin Surgical History S/P PTCA (percutaneous transluminal coronary angioplasty) Family History Sister Stroke Mother Stroke CAD (coronary artery disease) Social History Smoking and tobacco status: current some day smoker Alcohol intake: never Physical Exam Const: COMMON NORMALS: no acute distress GENERAL APPEARANCE: cooperative and comfortable ORIENTATION/CONSCIOUSNESS: Yes awake, Yes oriented to person, Yes oriented to place and Yes oriented to time HENMT: COMMON NORMALS: normocephalic, atraumatic and hearing grossly normal bilaterally HEAD & SCALP: normocephalic and atraumatic Neck/C-Spine: COMMON NORMALS: no JVD Resp: COMMON NORMALS: normal respiratory effort, No retractions, No use of accessory muscles and clear to auscultation bilaterally AUSCULTATION: clear to auscultation bilaterally Cardio: COMMON NORMALS: no JVD, regular rate, regular rhythm and No murmurs present (Cardio) RATE: regular rate RHYTHM: regular rhythm GI: COMMON NORMALS: Soft to palpation and No hepatosplenomegaly present AUSCULTATION: Yes normoactive bowel sounds PALPATION: Yes Soft to palpation, No Tenderness to palpation present (GI), No Guarding due to palpation present (GI) and Yes No hepatosplenomegaly present Extremity: COMMON NORMALS: normal to inspection, capillary refill normal, no clubbing, cyanosis or edema, no calf tenderness and no pedal edema Neuro: SENSORIUM/ORIENTATION: Yes oriented to person, Yes oriented to place a nd Yes oriented to time Skin: COMMON NORMALS: no rashes or lesions noted GENERAL SKIN EXAM: no rashes or lesions noted Course Vital Signs: Vital signs: Vital Signs Temperature 97.9 F 07/10/21 03:38 Pulse Rate 90 07/10/21 03:38 Respiratory Rate 19 H 07/10/21 03:38 Blood Pressure 109/74 07/10/21 03:38 Pulse Oximetry 96 07/10/21 03:38 MDM - Chest Pain MDM Narrative: Medical decision making narrative: Reviewing the chart when he was here previously his troponinDid have a delta of 9 and went from 6-15.6. When he returns now his troponin is down to 11. His symptoms are concerning he states he has a history of heart disease, previous angiogram shows significant coronary artery disease. He has been on Plavix and aspirin. admit discussed with the hospitalist, orders written, consultation to cardiology. No acute findings on his EKGs. Labs and imaging reviewed as on the chart. Lab Data: Labs: Lab Results 07/06/21 07/06/21 07/06/21 08:22 08:22 08:22 WBC 8.5 10^3/uL 10^3/ uL (4.0-10.0) RBC 4.16 10^6/uL 10^6 /uL (4.1-5.3) Hgb 13.6 g/dL g/dL (11.7-16.6) Hct 40.1 % L % (42.0-52.0) MCV 96.4 fl H fl (80-94) MCH 32.7 pg pg (28.0-34.0) MCHC 33.9 g/dL g/dL (30.0-36.0) RDW 12.1 % % (12.1-15.1) Plt Count 194 10^3/cmm 10^3 /cmm (130-400) MPV 11.0 fL H fL (7.4-10.4) Neut % (Auto) 58.8 % % Lymph % (Auto) 29.2 % % [place] % (Auto) 9.0 % % Eos % (Auto) 2.0 % % Baso % (Auto) 0.8 % % Neut # (Auto) 5.01 10^3/uL 10^3 /uL (1.8-7.7) Lymph # (Auto) 2.5 10^3/uL 10^3/ uL (0.8-4.8) Coal # (Auto) 0.8 10^3/uL 10^3/ uL (0.2-0.9) Eos # (Auto) 0.2 10^3/uL 10^3/ uL (0.0-0.8) Baso # (Auto) 0.1 10^3/uL 10^3/ uL (0.0-0.1) Nucleated RBC % (a uto) 0 % % Nucleated RBCs # 0.0 /100WBC /100W BC Sodium 141 mmol/L mmol/L (136-145) Potassium 4.5 mmol/L mmol/L (3.5-5.1) Chloride 109 mmol/L H mmol /L (98-107) Carbon Dioxide 23 mmol/L mmol/L (22-29) Anion Gap 13.5 (5-19) BUN 14 mg/dL mg/dL (8-23) Creatinine 0.6 mg/dL L mg/dL (0.7-1.2) GFR Calculation 137.4 mL/min H mL /min (90-130) Glucose 111 mg/dL mg/dL (65-115) Calculated Osmolal ity 293 mOsm/kg mOsm/ kg (285-295) Calcium 8.4 mg/dL L mg/dL (8.5-10.5) Total Bilirubin 0.2 mg/dL mg/dL (0.15-1.2) AST 15 U/L U/L (0-40) ALT 18 U/L U/L (0-41) Alkaline Phosphata se 52 IU/L IU/L (40-130) Creatine Kinase 108 U/L U/L (39-308) Troponin T Baselin e 11 ng/L ng/L (0-15) Troponin T 120 Min [place] Delta Troponin T Troponin T Hi Sens 6Hr Troponin T Hi Sens 6Hr Delta Total Protein 5.7 g/dL L g/dL (6.6-8.7) Albumin 3.8 g/dL g/dL (3.5-5.2) Globulin 1.9 g/dL g/dL (1.3-4.6) Urine Color Urine Appearance Urine pH Ur Specific Gravit y Urine Protein Urine Glucose (UA) Urine Ketones Urine Blood Urine Nitrate Urine Bilirubin Urine Urobilinogen Ur Leukocyte Taylor ase 07/06/21 07/06/21 07/06/21 09:05 10:26 14:50 WBC RBC Hgb Hct MCV MCH MCHC RDW Plt Count MPV Neut % (Auto) Lymph % (Auto) [place] % (Auto) Eos % (Auto) Baso % (Auto) Neut # (Auto) Lymph # (Auto) [place] # (Auto) Eos # (Auto) Baso # (Auto) Nucleated RBC % (a uto) Nucleated RBCs # Sodium Potassium Chloride Carbon Dioxide Anion Gap BUN Creatinine GFR Calculation Glucose Calculated Osmolal ity Calcium Total Bilirubin AST ALT Alkaline Phosphata se Creatine Kinase Troponin T Baselin e Troponin T 120 Min [place] 9.84 ng/L ng/L (0-15) Delta Troponin T -1.16 ABS# L ABS# (0-10) Troponin T Hi Sens 6Hr 8.39 ng/L ng/L (0-15) Troponin T Hi Sens 6Hr Delta -2.61 ng/L L ng/L (0-12) Total Protein Albumin Globulin Urine Color Straw (Yellow) Urine Appearance Clear (CLEAR) Urine pH 5 (5-7) Ur Specific Gravit y 1.005 (1.005-1.030) Urine Protein Neg (Negative) Urine Glucose (UA) Norm (Normal) Urine Ketones Negative (Negative) Urine Blood Neg (Negative) Urine Nitrate Negative (Negative) Urine Bilirubin Neg (Negative) Urine Urobilinogen Norm mg/dL mg/dL (Negative) Ur Leukocyte Taylor ase Negative (Negative) 07/07/21 07/07/21 04:18 04:18 WBC 7.7 10^3/uL 10^3/ uL (4.0-10.0) RBC 3.95 10^6/uL L 10 ^6/uL (4.1-5.3) Hgb 13.2 g/dL g/dL (11.7-16.6) Hct 39.0 % L % (42.0-52.0) MCV 98.7 fl H fl (80-94) MCH 33.4 pg pg (28.0-34.0) MCHC 33.8 g/dL g/dL (30.0-36.0) RDW 12.4 % % (12.1-15.1) Plt Count 177 10^3/cmm 10^3 /cmm (130-400) MPV 11.6 fL H fL (7.4-10.4) Neut % (Auto) 51.2 % % Lymph % (Auto) 35.4 % % [place] % (Auto) 9.4 % % Eos % (Auto) 2.9 % % Baso % (Auto) 0.8 % % Neut # (Auto) 3.93 10^3/uL 10^3 /uL (1.8-7.7) Lymph # (Auto) 2.7 10^3/uL 10^3/ uL (0.8-4.8) Coal # (Auto) 0.7 10^3/uL 10^3/ uL (0.2-0.9) Eos # (Auto) 0.2 10^3/uL 10^3/ uL (0.0-0.8) Baso # (Auto) 0.1 10^3/uL 10^3/ uL (0.0-0.1) Nucleated RBC % (a uto) 0 % % Nucleated RBCs # 0.0 /100WBC /100W BC Sodium 142 mmol/L mmol/L (136-145) Potassium 4.4 mmol/L mmol/L (3.5-5.1) Chloride 108 mmol/L H mmol /L (98-107) Carbon Dioxide 27 mmol/L mmol/L (22-29) Anion Gap 11.4 (5-19) BUN 9 mg/dL mg/dL (8-23) Creatinine 0.7 mg/dL mg/dL (0.7-1.2) GFR Calculation 115.0 mL/min mL/m in (90-130) Glucose 87 mg/dL mg/dL (65-115) Calculated Osmolal ity 292 mOsm/kg mOsm/ kg (285-295) Calcium 8.4 mg/dL L mg/dL (8.5-10.5) Total Bilirubin 0.3 mg/dL mg/dL (0.15-1.2) AST 16 U/L U/L (0-40) ALT 16 U/L U/L (0-41) Alkaline Phosphata se 51 IU/L IU/L (40-130) Creatine Kinase Troponin T Baselin e Troponin T 120 Min [place] Delta Troponin T Troponin T Hi Sens 6Hr Troponin T Hi Sens 6Hr Delta Total Protein 5.5 g/dL L g/dL (6.6-8.7) Albumin 3.6 g/dL g/dL (3.5-5.2) Globulin 1.9 g/dL g/dL (1.3-4.6) Urine Color Urine Appearance Urine pH Ur Specific Gravit y Urine Protein Urine Glucose (UA) Urine Ketones Urine Blood Urine Nitrate Urine Bilirubin Urine Urobilinogen Ur Leukocyte Taylor ase Discharge Plan Discharge Patient Disposition: Admitted As Inpatient Admit Provider: Richard Jeffrey Clinical Impression: Chest pain, Coronary artery disease, HTN (hypertension) Condition: Stable Coding Level of Care Code ED Account Representative for Melissag Savita
[2021-07-06 08:33] LABS: Basophils # 0.1 10^3/uL (0.0-0.1); Basophils % 0.8 %; Eosinophils # 0.2 10^3/uL (0.0-0.8); Hematocrit 40.1 % (42.0-52.0); Hemoglobin 13.6 g/dL (11.7-16.6); Lymphocytes # 2.5 10^3/uL (0.8-4.8); Lymphocytes % 29.2 %; Mean Corpuscular HGB Conc 33.9 g/dL (30.0-36.0); Mean Corpuscular Hemoglobin 32.7 pg (28.0-34.0); Mean Corpuscular Volume 96.4 fl (80-94); Monocytes # 0.8 10^3/uL (0.2-0.9); Neutrophils # 5.01 10^3/uL (1.8-7.7); Neutrophils % 58.8 %; Nucleated Red Blood Cells % 0 %; Platelet Count 194 10^3/cmm (130-400); Red Blood Count 4.16 10^6/uL (4.1-5.3); Red Cell Distribution Width 12.1 % (12.1-15.1); White Blood Count 8.5 10^3/uL (4.0-10.0)
[2021-07-06 08:49] LABS: Alanine Aminotransferase 18 U/L (0-41); Albumin Level 3.8 g/dL (3.5-5.2); Alkaline Phosphatase 52 IU/L (40-130); Anion Gap 13.5 (5-19); Aspartate Amino Transferase 15 U/L (0-40); Blood Urea Nitrogen 14 mg/dL (8-23); Calcium 8.4 mg/dL (8.5-10.5); Carbon Dioxide 23 mmol/L (22-29); Chloride 109 mmol/L (98-107); Creatine Phosphokinase 108 U/L (39-308); Globulin 1.9 g/dL (1.3-4.6); Glomerular Filtration Rate 137.4 mL/min (90-130); Glucose 111 mg/dL (65-115); Osmolality Calculated 293 mOsm/kg (285-295); Potassium 4.5 mmol/L (3.5-5.1); Sodium 141 mmol/L (136-145); Total Bilirubin 0.2 mg/dL (0.15-1.2); Total Protein 5.7 g/dL (6.6-8.7)
[2021-07-06 08:58] LABS: Troponin(5th) Baseline 11 ng/L (0-15)
[2021-07-06] MEDS: sodium chloride 0.9% 1,000 ML 999 ML IV (09:07)
[2021-07-06 09:13] LABS: Add Urine Microscopic? NO; Charge for UA Resulting for Rev
[2021-07-06 09:26] LABS: Bilirubin Urine Neg (Negative); Blood Urine Neg (Negative); Glucose Urine UA Norm (Normal); Ketones Urine Negative (Negative); Leukocyte Esterase Urine Negative (Negative); Nitrate Urine Negative (Negative); Protein Urine Neg (Negative); Specific Gravity, Urine 1.005 (1.005-1.030); Urine Appearance Clear (CLEAR); Urine Color Straw (Yellow); Urobilinogen Urine Norm (Negative); pH Urine 5 (5-7)
--- NOTE | 2021-07-06 10:15 | ECG_ITS ---
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 Measurements Intervals [place] Rate: 58 P: 70 W[place]: 173 QRS: 50 QRSD: 78 T: 74 QT: 435 QTc: 428 Interpretive Statements SINUS BRADYCARDIA Compared to ECG 07/06/2021 08:22:43 Sinus rhythm no longer present Electronically Signed On 07-06-2021 23:54:55 CDT by Artie Gerard M.D. [email or web address] Technologygulfport behavioral health systemLightboxuniversity hospitals st. john medical centerPictorious/store/NU/[id number] [email or web address]
[2021-07-06 11:32] LABS: Troponin 5 2HR 9.84 ng/L (0-15)
[2021-07-06 11:33] LABS: Troponin 5 2HR Delta -1.16 ABS# (0-10)
--- NOTE | 2021-07-06 12:25 | PM.CONSULT ---
Providers/Reason For Consult Consulting Physician/Specialty*: Moe Cason MD/Cardiology Reason for Consult*: Chest pain Requesting Physician: Dr Jeffrey Attending Physician: Dr Jeffrey Primary Care Provider: Thomas Moy DO History of Present Illness History of Present Illness Fahad Chakraborty is a 60 year old male with PMH of hypertension and CAD with PCI of LCx done earlier this year has presented with severe chest pain symptoms. Radiation to both arms. Similar pain as was having prior to prior intervention. He was initially admitted last night but left AMA. Again presented this morning as continued having chest pain.His troponins have not trended up significantly. EKG not showing significant ischemic changes. Review of Systems General: Reports: 10 or more systems reviewed and unremarkable except in HPI and below Const: Denies: fever(s) Eyes: Denies: change in vision ENMT: Denies: throat pain Card: Reports: chest pain and lightheadedness Resp: Reports: dyspnea GI: Reports: other (Reports some dark stool but not tarry.); Denies: abdominal pain : Denies: flank pain Musc: Denies: neck pain Skin/Breast: Denies: rash Neuro: Denies: headache(s) Psych: Denies: anxiety Endo: Denies: polyuria Neal/Lymph: Denies: easy bruising All/Imm: Denies: urticaria Meds/Allergies Home Medications and Allergies Home Medications Medication Instructions Recorded Confirmed Last Taken Type aspirin 81 mg tablet,delayed 81 mg PO QAM 12/24/19 07/06/21 07/06/21 07:00 History release clopidogrel 75 mg tablet 75 mg PO QAM 12/24/19 07/06/21 07/06/21 07:00 History cyclobenzaprine 10 mg tablet 10 mg PO BEDTIME tab 12/24/19 07/06/21 07/05/21 History metoprolol tartrate 50 mg tablet 25 mg PO QAM tab 12/24/19 07/06/21 07/06/21 07:00 History nitroglycerin 0.4 mg sublingual 0.4 mg SUBLINGUAL Q5M PRN 12/24/19 07/06/21 Unknown History tablet hydrocodone-acetaminophen 1 tab PO Q6H PRN #12 tab 06/20/20 07/06/21 10/01/20 Rx finasteride 5 mg tablet 5 mg PO QAM 07/07/20 07/06/21 07/06/21 07:00 History famotidine 20 mg PO BID #0 10/06/20 07/06/21 07/06/21 07:00 History lisinopril 5 mg PO QAM #0 10/06/20 07/06/21 07/06/21 07:00 History simvastatin 40 mg PO BEDTIME #0 10/06/20 07/06/21 07/05/21 History buspirone 15 mg PO BID 07/06/21 07/06/21 07/06/21 07:00 History gabapentin 800 mg PO TID 07/06/21 07/06/21 07/06/21 07:00 History trazodone 50 mg PO BEDTIME 07/06/21 07/06/21 07/05/21 History Allergies Allergy/AdvReac Type Severity Reaction Status Date / Time tramadol [From Ultram] Allergy Severe Seizures Verified 07/06/21 12:38 celecoxib [From Celebrex] Allergy Mild Chronic Verified 07/06/21 12:38 Diarrhea ibuprofen AdvReac Mild Taking Verified 07/06/21 12:38 Plavix mint Allergy Unknown Uncoded 07/03/21 11:33 PFSH Acute PFSH: Medical History BPH (benign prostatic hyperplasia) Coronary artery disease Angiogram demonstrated LAD 60%, mid circumflex 90%, proximal RCA 60%. Intervention circumflex HTN (hypertension) Hyperlipidemia LDL goal <70 Surgical History S/P PTCA (percutaneous transluminal coronary angioplasty) Family History Sister Stroke Mother Stroke CAD (coronary artery disease) Social History Smoking and tobacco status: current some day smoker Alcohol intake: never Vitals/I&O/Wt Last Vital Signs Temp 97.9 F 07/06/21 08:29 Pulse 57 L 07/06/21 11:24 Resp 13 07/06/21 11:24 BP 137/86 07/06/21 11:24 Pulse Ox 95 10/25/21 11:24 Weight last 48 hrs Weight 200 lb Physical Exam Narrative: EXAM NARRATIVE: GENERAL: Patient is alert, awake and oriented x3. NECK: No jugular vein distension. HEENT: No cyanosis. No icterus. No pallor. HEART: Regular S1 and S2. No murmur, rub or gallop. LUNGS: Clear to auscultate bilaterally. ABDOMEN: Soft, nontender and nondistended. Positive bowel sounds. No guarding, rebound or tenderness. CENTRAL NERVOUS SYSTEM: Grossly nonfocal. EXTREMITIES: Lower extremities without edema bilaterally. A&P Assessment and plan (1) Unstable angina: Status: Acute (2) Depression: Status: Acute (3) Hyperlipidemia LDL goal <70: Status: Acute (4) Coronary artery disease: Status: Acute Qualifiers: Coronary Disease-Associated Artery/Lesion type: [place] artery [place] vs. transplanted heart: [place] heart Associated angina: with other forms of angina Qualified Code(s): I25.118 - Atherosclerotic heart disease of [place] coronary artery with other forms of angina pectoris (5) HTN (hypertension): Status: Acute Qualifiers: Hypertension type: essential hypertension Qualified Code(s): I10 - Essential (primary) hypertension Patient has presented with unstable angina. Will preoceed with coronary angiogram in the AM Continue aspirin and plavix. Order echocardiogram Lovenox Trend troponins If chest pain persists can start nitro gtt Thank you for involving us with care of this patient. 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 transplanted heart: [place] heart Associated angina: with other forms of angina HTN (hypertension) I10 Hypertension type: essential hypertension
--- NOTE | 2021-07-06 12:26 | USCV_ITS ---
Fahad Chakraborty Age: 60 Gender: M : 1960 Exam Date: 07/06/2021 14:45 Ordering Phys: Moe Cason M.D ([email or web address]) Technologist: ELISE Exam Location: [facility] Indication: chest pain BP: 137 / 86 HR: 60 Rhythm: Sinus Technical Quality: Adequate MEASUREMENTS (Male / Female) Normal Values 2D ECHO LV Diastolic Diameter PLAX 4.7 cm 4.2 - 5.9 / 3.9 - 5.3 cm LV Systolic Diameter PLAX 3.0 cm IVS Diastolic Thickness 1.1 cm 0.6 - 1.0 / 0.6 - 0.9 cm IVS Systolic Thickness 1.3 cm LVPW Diastolic Thickness 1.3 cm 0.6 - 1.0 / 0.6 - 0.9 cm LVPW Systolic Thickness 2.0 cm LVOT Diameter 2.0 cm LV Ejection Fraction 2D Teich 64.1 % LV Ejection Fraction MOD 2C 74.0 % LV Ejection Fraction 2C AL 75.6 % LA Diameter 2.5 cm LA Width 3.3 cm LA Height 3.4 cm RA Width 3.4 cm RA Height 4.0 cm Aorta at Sinotubular Diameter 2.3 cm M-MODE Aortic Annulus Diameter 2.9 cm LA Ao Ratio MM 0.8 MV E Point Septal Separation 0.4 cm DOPPLER AV Peak Velocity 100.0 cm/s LVOT Peak Velocity 79.0 cm/s AV Area Cont Eq vti 2.7 cm squared AV Area Cont Eq pk 2.5 cm squared MV Peak Velocity 67.0 cm/s MV Area PHT 4.3 cm squared Mitral E to A Ratio 1.6 MV E' Velocity 43.0 cm/s Mitral E to MV E' Ratio 5.9 Mitral E to LV E' Lateral Ratio 5.6 Mitral E to LV E' Septal Ratio 6.1 TR Peak Velocity 182.0 cm/s TR Peak Gradient 13.2 mmHg TV Peak E Velocity 50.0 cm/s PV Peak Velocity 85.0 cm/s RV Acceleration Time 0.1 s RV Ejection Time 0.3 s RV AcT/ET 0.4 FINDINGS Left Ventricle Normal left ventricular size. LV systolic function is normal with EF of 55-60%. No regional wall motion abnormalities. Normal diastolic filling pattern. Right Ventricle The right ventricle is normal in size and function. Right Atrium The right atrium is normal in size. Left Atrium The left atrium is normal in size. Mitral Valve Structurally normal mitral valve without significant stenosis or prolapse. There is no mitral regurgitation. Aortic Valve Structurally normal aortic valve without significant sclerosis or stenosis. There is no aortic regurgitation. Tricuspid Valve Structurally normal tricuspid valve without significant stenosis or regurgitation. Insufficient TR jet to calculate RVSP Pulmonic Valve Structurally normal pulmonic valve without significant stenosis. There is no pulmonic regurgitation. Pericardium Normal pericardium without effusion. Aorta Normal ascending aorta dimension. CONCLUSIONS LV systolic function is normal with EF of 55-60% Diastolic function is normal No significant valvular heart disease is noted Compared to prior echocardiogram from 09/16/2020, no significant changes are noted. Moe Cason MD (Electronically Signed) Final Date: 06 July 2021 21:10 S
--- NOTE | 2021-07-06 12:38 | PC.PHAR ---
PT STATES HE TAKES CARE OF HIS OWN MEDICATIONS-WAITING FOR [place] TO SEND MED LIST-PT STATES HE TAKES THE MEDICATIONS ENTERED-PT STATES HE ONLY TAKES LISINOPRIL 5MG AND METOPROLOL TARTRATE 25MG ONCE A DAY ON A PREVIOUS ENTERED MED LIST SOMEONE HAD PUT PT TAKES BID PT STATES HE ONLY TAKES ONCE A DAY IN THE AM-
--- NOTE | 2021-07-06 13:31 | PM.HP ---
Providers/Chief Complaint Admitting Physician: Richard Jeffrey MD Primary Care Provider: Thomas Moy DO Chief Complaint: CHEST PAIN/HEART ATTACK ON 07/05 History of Present Illness Fahad Chakraborty is a 60 year old male who presents to the emergency department with complaints of chest discomfort. He reports he has central chest discomfort that feels like squeezing. It makes him short of breath, and lightheaded. This started on Tuesday, and seems to come and go. A little bit of it seems to be present most times. He believes this feels like his past history of heart disease. He denies any cough, fever, exposure to Covid. He reports he has been compliant with his Plavix. Review of Systems General: Reports: 10 or more systems reviewed and unremarkable except in HPI and below Const: Denies: fever(s) Eyes: Denies: change in vision ENMT: Denies: throat pain Card: Reports: chest pain and lightheadedness Resp: Reports: dyspnea GI: Reports: other (Reports some dark stool but not tarry.); Denies: abdominal pain : Denies: flank pain Musc: Denies: neck pain Skin/Breast: Denies: rash Neuro: Denies: headache(s) Psych: Denies: anxiety Endo: Denies: polyuria Neal/Lymph: Denies: easy bruising All/Imm: Denies: urticaria Medications/Allergies Home Medications Medication Instructions Recorded Confirmed Last Taken Type aspirin 81 mg tablet,delayed 81 mg PO QAM 12/24/19 07/06/21 07/06/21 07:00 History release clopidogrel 75 mg tablet 75 mg PO QAM 12/24/19 07/06/21 07/06/21 07:00 History cyclobenzaprine 10 mg tablet 10 mg PO BEDTIME tab 12/24/19 07/06/21 07/05/21 History metoprolol tartrate 50 mg tablet 25 mg PO QAM tab 12/24/19 07/06/21 07/06/21 07:00 History nitroglycerin 0.4 mg sublingual 0.4 mg SUBLINGUAL Q5M PRN 12/24/19 07/06/21 Unknown History tablet hydrocodone-acetaminophen 1 tab PO Q6H PRN #12 tab 06/20/20 07/06/21 10/01/20 Rx finasteride 5 mg tablet 5 mg PO QAM 07/07/20 07/06/21 07/06/21 07:00 History famotidine 20 mg PO BID #0 10/06/20 07/06/21 07/06/21 07:00 History lisinopril 5 mg PO QAM #0 10/06/20 07/06/21 07/06/21 07:00 History simvastatin 40 mg PO BEDTIME #0 10/06/20 07/06/21 07/05/21 History buspirone 15 mg PO BID 07/06/21 07/06/21 07/06/21 07:00 History gabapentin 800 mg PO TID 07/06/21 07/06/21 07/06/21 07:00 History trazodone 50 mg PO BEDTIME 07/06/21 07/06/21 07/05/21 History Allergies Allergy/AdvReac Type Severity Reaction Status Date / Time tramadol [From Ultram] Allergy Severe Seizures Verified 07/06/21 12:38 celecoxib [From Celebrex] Allergy Mild Chronic Verified 07/06/21 12:38 Diarrhea ibuprofen AdvReac Mild Taking Verified 07/06/21 12:38 Plavix mint Allergy Unknown Uncoded 07/03/21 11:33 PFSH Acute PFSH: Medical History (Updated 07/06/21 @ 13:35 by Richard Jeffrey MD) BPH (benign prostatic hyperplasia) Coronary artery disease Angiogram demonstrated LAD 60%, mid circumflex 90%, proximal RCA 60%. Intervention circumflex HTN (hypertension) Hyperlipidemia LDL goal <70 Surgical History S/P PTCA (percutaneous transluminal coronary angioplasty) Family History Sister Stroke Mother Stroke CAD (coronary artery disease) Social History Smoking and tobacco status: current some day smoker Alcohol intake: never Vitals/I&O/Wt Last Vital Signs Temp 97.9 F 07/06/21 08:29 Pulse 62 07/06/21 13:18 Resp 12 07/06/21 13:18 BP 141/87 07/06/21 13:18 Pulse Ox 95 07/06/21 11:24 Weight last 48 hrs Weight 90.718 kg Physical Exam Narrative: EXAM NARRATIVE: General exam is a white male, no distress, reports discomfort is nearly gone HEENT atraumatic normocephalic. Oropharynx clear. Neck is supple no lymphadenopathy or thyromegaly Cardiovascular regular rate and rhythm without murmur Lungs clear no wheezing or crackles Abdomen is soft nontender with positive bowel sounds. No obvious organomegaly exam is deferred Extremities no cyanosis clubbing or edema, cap refill brisk Skin no rash Neuro no obvious focal deficits. Data : 07/06/21 08:22 07/06/21 08:22 Other data: LFTs normal Troponin XI with repeat of 9.84 Urinalysis negative Chest x-ray negative EKG demonstrates normal sinus rhythm normal axis and is essentially normal EKG. A&P Assessment and plan (1) Chest pain: Patient with significant underlying substrate according to his last angiogram Cardiology consultation Serial troponins I do not see compelling evidence to repeat echocardiogram at this time. Last echo in September 2020 demonstrated 1/4 diastolic dysfunction, EF of 60%. Status: Acute Qualifiers: Chest pain type: unspecified Qualified Code(s): R07.9 - Chest pain, unspecified (2) Coronary artery disease: Continue Plavix, aspirin, statin, beta-frank. Status: Acute Qualifiers: Coronary Disease-Associated Artery/Lesion type: [place] artery [place] vs. transplanted heart: [place] heart Associated angina: with other forms of angina Qualified Code(s): I25.118 - Atherosclerotic heart disease of [place] coronary artery with other forms of angina pectoris (3) HTN (hypertension): Continue beta-frank Note that blood pressure slightly low on admission. Discontinue lisinopril Status: Acute Qualifiers: Hypertension type: essential hypertension Qualified Code(s): I10 - Essential (primary) hypertension Additional A&P Information Multiple other medical problems as outlined in his past medical history Full code Lovenox for DVT prophylaxis Attestations Medical Necessity Statement*: Will need less than 2 midnight stay for evaluation and treatment of chest discomfort. 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 transplanted heart: [place] heart Associated angina: with other forms of angina HTN (hypertension) I10 Hypertension type: essential hypertension
--- NOTE | 2021-07-06 14:15 | ECG_ITS ---
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 Measurements Intervals [place] Rate: 66 P: 72 DC: 175 QRS: 56 QRSD: 89 T: 74 QT: 393 QTc: 415 Interpretive Statements SINUS RHYTHM Compared to ECG 07/06/2021 12:24:39 Sinus bradycardia no longer present Electronically Signed On 07-06-2021 23:56:45 CDT by Artie Gerard M.D. [email or web address] Energycopiah county medical centerOrgooregency hospital toledoWonolo/store/OM/[id number]
--- NOTE | 2021-07-06 15:13 | PC.NURSE ---
Pt arrived to the floor via wheelchair. Pt is stable, alert and oriented. Pt has been oriented to call dinh and room. Pt has no questions or concerns. Nurse will continue to monitor.
[2021-07-06] MEDS: enoxaparin 40 mg/0.4 mL Syringe SUBCUT (15:21)
[2021-07-06] MEDS: gabapentin 400 mg Capsule 800 MG PO ×2 (15:21→20:03)
[2021-07-06] MEDS: sodium chloride 0.9% 1,000 ML 75 ML IV (15:22)
[2021-07-06 16:18] LABS: Troponin 5 6HR 8.39 ng/L (0-15)
[2021-07-06 16:24] LABS: Troponin 5 6HR Delta -2.61 ng/L (0-12)
[2021-07-06] MEDS: BuSPIRONE 10 mg Tablet 15 MG PO (18:00)
[2021-07-06] MEDS: famotidine 20 mg Tablet PO (18:01)
[2021-07-06] MEDS: atorvastatin 40 mg Tablet 20 MG PO (20:04)
[2021-07-06] MEDS: trazodone 50 mg Tablet PO (20:04)
[2021-07-07] VITALS (9 sets, daily range): BP systolic 86–113; BP diastolic 62–76; PULSE 70–85; RESP 15–20; TEMP 36.6–36.8; O2SAT 95–100
--- NOTE | 2021-07-07 03:19 | PC.NURSE ---
Dr. Qureshi notified that patient is asking for something for anxiety, stating that he is nervous about his angiogram.
[2021-07-07] MEDS: aspirin 81 mg EC Tablet PO (04:39)
[2021-07-07] MEDS: clopidogrel 75 mg Tablet PO (04:39)
[2021-07-07] MEDS: finasteride 5 mg Tablet PO (04:39)
[2021-07-07] MEDS: diphenhydrAMINE 50 mg Capsule PO (04:39)
[2021-07-07] MEDS: metoprolol tartrate 50 mg Tablet 25 MG PO (04:39)
[2021-07-07] MEDS: ALPRAZolam 0.5 mg Tablet 0.25 MG PO ×2 (04:39→20:48)
[2021-07-07] MEDS: sodium chloride 0.9% 1,000 ML 75 ML IV (04:40)
[2021-07-07 05:08] LABS: Basophils # 0.1 10^3/uL (0.0-0.1); Basophils % 0.8 %; Eosinophils # 0.2 10^3/uL (0.0-0.8); Eosinophils % 2.9 %; Hemoglobin 13.2 g/dL (11.7-16.6); Lymphocytes # 2.7 10^3/uL (0.8-4.8); Lymphocytes % 35.4 %; Mean Corpuscular HGB Conc 33.8 g/dL (30.0-36.0); Mean Corpuscular Hemoglobin 33.4 pg (28.0-34.0); Mean Corpuscular Volume 98.7 fl (80-94); Mean Platelet Volume 11.6 fL (7.4-10.4); Monocytes # 0.7 10^3/uL (0.2-0.9); Monocytes % 9.4 %; Neutrophils # 3.93 10^3/uL (1.8-7.7); Neutrophils % 51.2 %; Nucleated Red Blood Cells % 0 %; Platelet Count 177 10^3/cmm (130-400); Red Blood Count 3.95 10^6/uL (4.1-5.3); Red Cell Distribution Width 12.4 % (12.1-15.1); White Blood Count 7.7 10^3/uL (4.0-10.0)
[2021-07-07 05:27] LABS: Alanine Aminotransferase 16 U/L (0-41); Albumin Level 3.6 g/dL (3.5-5.2); Alkaline Phosphatase 51 IU/L (40-130); Anion Gap 11.4 (5-19); Aspartate Amino Transferase 16 U/L (0-40); Blood Urea Nitrogen 9 mg/dL (8-23); Calcium 8.4 mg/dL (8.5-10.5); Carbon Dioxide 27 mmol/L (22-29); Chloride 108 mmol/L (98-107); Globulin 1.9 g/dL (1.3-4.6); Glucose 87 mg/dL (65-115); Osmolality Calculated 292 mOsm/kg (285-295); Potassium 4.4 mmol/L (3.5-5.1); Sodium 142 mmol/L (136-145); Total Bilirubin 0.3 mg/dL (0.15-1.2); Total Protein 5.5 g/dL (6.6-8.7)
--- NOTE | 2021-07-07 06:00 | XACV_ITS ---
Exam Room: [facility] Ht: 183 cm Wt: 91 kg BSA: 2.16 m2 Gender: Male : 1960 Any Known Allergies: Other Exam Priority: Routine Procedure(s): Procedure Description: Diagnostic procedure Procedure Description: Left Heart Catheterization Procedure Description: Left ventriculography Procedure Description: Coronary Angiography Diagnostic Cath Status: Elective Diagnostic Findings * Circumflex has no disease. * Left Main: significant 80% stenosis, JOSEPH: 3 flow. * Mid Left Anterior Descending: significant 80% stenosis, JOSEPH: 3 flow. * Proximal Right Coronary Artery: obstructive 70% stenosis, JOSEPH: 3 flow. * Coronary angiography shows right dominance. Conclusions 1. There is significant coronary artery disease with three vessel disease. 2. The apical septum and anteroapical márquez are hypokinetic. 3. All other visualized márquez normal. 4. Normal left ventricular systolic function. Ejection fraction of 65%. 5. Patent previously placed proximal LAD, mid circumflex and mid RCA stents. Significant 80% mid to distal left main disease, significant 80% mid LAD disease distal to prior stent. Normal left ventricular ejection fraction 65% with apical mild hypokinesisElevated left ventricular end-diastolic pressure 22 mmHg.No significant gradient across the aortic valve was noted.. Recommendations * 1-Return to * CSU * for close monitoring and routine * CATH * care * 2 * -Hold Plavix for possible CABG * 3 * -Statin with LDL goal of 70 mg/dl, aspirin 81 mg p.o. daily for life long * . Smoking cessation advised. * 4 * -CT surgery consults for CABG * 5 * -Optimal medical management for NE * 6 * -Follow up with Dr. Nieto in four weeks and establish care with primary care physician. Diagnostic RX Recommendation: CABG Ventriculography Ejection Fraction: 65.0 % Pressures Phase:Rest AO : 110 / 72 ( 91 ) @ 5:19:00 AM 190 / 50 ( 114 ) @ 5:20:00 AM 127 / 78 ( 101 ) @ 5:26:00 AM 129 / 77 ( 101 ) @ 5:26:00 AM LV : 134 / -5 / 23 @ 5:25:00 AM 117 / 0 / 20 @ 5:26:00 AM 120 / 0 / 22 @ 5:26:00 AM Valves Phase:DefaultPhase AV : 0.0 @ 6:33:29 AM AV Mean Gradient: 0.0 @ 6:33:29 AM Clinical Evaluation EBL: 5mL-10mL Procedural Details Procedure Consent Obtained. Pre-Procedure Time Out. Identified patient by full name and date of as verbalized by the patient/guarantor. Does the consent match the physician's order: Yes. Accurate & Complete Informed Consent: Yes. Inpatient/Outpatient History & Physical on Chart: Yes. If H&P is completed, is and addenduem needed: No; If yes, is the addendum complete: N/A. Visualize and Verify Site with Patient/Guarantor: N/A. Relevant Radiology Images available: Yes. Pre-op teaching completed and patient verbalized understanding. The risks, benefits, and alternatives of sedation and/or procedure were discussed by physician. The patient agrees to continue. Procedure started. [facility] Clinical Fraility Score: 3: Managing Well. 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 Chest Pain Symptom Assessment: Typical Angina Symptoms. Correct patient, site and procedure confirmed by cath team. Current diagnosis: NSTEMI. PERRLA. Strong, equal hand director internal communications bilaterally. Lungs clear x 5 lobes. IV Site on Arrival: 18 gauge in the right anticubital. IV Fluids: 0.9% NaCl at KVO. 0 mL infused prior to label coder. Oxygen started at 2liters/min via nasal canula. bilateral groins was prepped with chloroprep then draped in the usual sterile fashion. right radial was prepped with chloroprep then draped in the usual sterile fashion. Physician notified. Vital chart was stopped. A 18 gauge IV was started in the left anticubital using aseptic technique. Joan Moss RN circulating. Baseline sample Acquired. HR: 70 BPM. Physician arrived. Physician scrubbed in. Immediate Pre-Procedure Time Out. Correct Patient: Yes; Correct Procedure: Yes; Correct Site: Yes; Correct Patient Position: Yes; Correct Supplies: Yes; Dried Flammable Prep: Yes; Blood Products Available: N/A;. Lidocaine 1% infiltrated to the right radial. Arterial access obtained. A 5 niuean Paul catheter in over wire. Multiple views taken of right coronary artery. Catheter redirected to the LCA. Multiple views taken of left coronary artery. Catheter removed over the exchange wire. A 5 niuean Angled Pig catheter in over wire. EDP Sample taken: LV 134/-6,23; HR: 88 BPM; SpO2: Off%. LV gram performed in JEFFERY @ 10 mL/second for a total of 30 mL. EDP Sample taken: LV 117/0,20; HR: 76 BPM; SpO2: Off%. Pullback taken: LV 120/0,22; AO 127/78(101); Mean: 0mmHg, Peak to Peak: 0mmHg, SEP: 2sec/min; HR: 76 BPM; SpO2: Off%. Catheter removed over the exchange wire. Vital chart was stopped. TR band placed. Hemostasis obtained. A TR Band was unsuccessful obtaining hemostatsis at the Right Radial artery insertion site. Post Procedure: Pulses reassessed and unchanged. PERRLA. Strong, equal hand director internal communications bilaterally. No VTE prophylaxis required. Medication's Wasted: Heparin = 1000 units. Medication's Wasted: Nitro = 49.8 mcg. Medication's Wasted: Lidocaine 1% = 18 mL. Total IV fluids: 41 mL. Contrast type used: Omnipaque 300 mgI/mL, 500 mL bottle. Post-op diagnosis: LM stenosis. Complications: None. Estimated blood loss: 5mL-10mL. Procedure completed. Patient transferred by bed to 1st floor. Access Site Site: Right Radial artery Sheath Size: 6 Fr Hemostasis Method: TR Band Hemostasis Success: Unsuccessful Procedure Medications Start: 6:07 AM Stop: 6:07 AM Medication: Versed Amount: 1 mg Route: I.V. Start: 6:07 AM Stop: 6:07 AM Medication: Fentanyl Amount: 50 mcg Route: I.V. Start: 6:10 AM Stop: 6:10 AM Medication: Versed Amount: 1 mg Route: I.V. Start: 6:12 AM Stop: 6:12 AM Medication: Versed Amount: 1 mg Route: I.V. Start: 6:12 AM Stop: 6:12 AM Medication: Fentanyl Amount: 50 mcg Route: I.V. Start: 6:15 AM Stop: 6:15 AM Medication: Nitrogylcerin Amount: 200 mcg Route: I.A. Start: 6:17 AM Stop: 6:17 AM Medication: Heparin Amount: 5000 units Route: I.V. Start: 6:17 AM Stop: 6:17 AM Medication: Versed Amount: 1 mg Route: I.V. I, the attending physician, have reviewed and verified all procedure medications. Yes, all medications given per verbal order History/Risk Factors Hypertension: Yes Dyslipidemia: Yes Peripheral Arterial Disease (PAD): No Myocardial Infarction (NE): No Obesity: No Renal Disease: No Prior Interventions PCI: Yes CABG: No Valve Surgery: No Report Signatures Finalized by Patrick Nieto MD on 07/07/2021 07:39 AM
--- NOTE | 2021-07-07 06:44 | ECG_ITS ---
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 Measurements Intervals [place] Rate: 70 P: 72 [place]: 164 QRS: 44 QRSD: 86 T: 73 QT: 410 QTc: 443 Interpretive Statements SINUS RHYTHM Compared to ECG 07/06/2021 17:31:34 No significant changes Electronically Signed On 07-07-2021 23:27:07 CDT by Moe Cason M.D. [email or web address] Powertallahatchie general hospitalEmpowered Careersohiohealth grove city methodist hospitalShuoren H[employer]ch/store/OM/[id number]
[2021-07-07] MEDS: morphine 4 mg/mL SDV 1 mL 2 MG IVP (06:59)
--- NOTE | 2021-07-07 07:42 | P.PN_ITS ---
Subjective Subjective: Interval history: Patient underwent left heart cath this morning. He was noted to have multivessel coronary artery disease with significant mid to distal 80% left main, significant mid 80% LAD and significant ostial RCA 70 to 80%. He is being referred to coronary artery bypass surgery. Medications: Reviewed: Yes Vitals/I&O/Wt Last Vital Signs Temp 98 F 07/07/21 03:57 Pulse 70 07/07/21 05:04 Resp 20 H 07/07/21 06:59 BP 111/72 07/07/21 03:57 Pulse Ox 96 07/07/21 06:59 07/06/21 07/07/21 07/07/21 22:59 06:59 14:59 Intake Total 236 / 1236 1297.5 / 2533.5 Output Total 950 / 950 825 / 1775 Balance -714 / 286 472.5 / 758.5 Weight last 48 hrs Weight 200 lb Physical Exam Narrative: EXAM NARRATIVE: GENERAL: Patient is alert, awake and oriented x3. NECK: No jugular vein distension. HEENT: No cyanosis. No icterus. No pallor. HEART: Regular S1 and S2. No murmur, rub or gallop. LUNGS: Clear to auscultate bilaterally. ABDOMEN: Soft, nontender and nondistended. Positive bowel sounds. No guarding, rebound or tenderness. CENTRAL NERVOUS SYSTEM: Grossly nonfocal. EXTREMITIES: Lower extremities without edema bilaterally. Data : 07/07/21 04:18 07/07/21 04:18 A&P Assessment and plan (1) Coronary artery disease: For worsening of chest pain and unstable angina like presentation patient underwent left heart cath. He was noted to have significant multivessel coronary artery disease as defined above including left main mid LAD and ostial RCA. Left main stenosis has significant change from September from 40% to 80% now. Coronary artery bypass surgery has been advised. I have discussed with the patient he and family are admitting and would like to let us know. Once they decide I will request CT surgery for their input. For now I will discontinue Plavix. Continue aspirin statin beta-frank nitroglycerin and anticoagulation. There is no gradient across aortic valve left ventricle function appeared to be normal at 65%. Mildly elevated LVEDP 22 mmHg. There is apical hypokinesis. Status: Acute Qualifiers: Coronary Disease-Associated Artery/Lesion type: [place] artery [place] vs. transplanted heart: [place] heart Associated angina: with other forms of angina Qualified Code(s): I25.118 - Atherosclerotic heart disease of [place] coronary artery with other forms of angina pectoris (2) HTN (hypertension): Well-controlled. Status: Acute Qualifiers: Hypertension type: essential hypertension Qualified Code(s): I10 - Essential (primary) hypertension Attestations Medical Necessity Statement*: Patient require continuation hospitalization for above defined care. 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 transplanted heart: [place] heart Associated angina: with other forms of angina HTN (hypertension) I10 Hypertension type: essential hypertension
--- NOTE | 2021-07-07 07:48 | W.PM.OPSUD ---
Surgery/Procedure H&P Update DATE OF PROCEDURE: July 07, 2021 DATE H&P PERFORMED: 07/06/21 H&P UPDATE INFORMATION: I have reviewed H&P completed within last 30 days, I have examined patient prior to procedure and No changes to prior documentation PREOP DIAGNOSIS: Unstable angina PLANNED PROCEDURE: Operation Date: 07/07/21 06:00 Proposed Procedures p Cardiac Catheterization(Left) - Patrick Nieto MD PATIENT REASSESSED PRIOR TO SEDATION, WITH NO CHANGE NOTED: Yes PHYSICAL EXAM: alert, oriented x 3 and clear to auscultation bilaterally AIRWAY EVAL/ANESTHESIA PLAN: ASA II and Risks, benefits & alternatives of sedation and/or procedure discussed
[2021-07-07] MEDS: isosorbide mononitrate 20 mg Tablet PO (08:50)
[2021-07-07] MEDS: BuSPIRONE 10 mg Tablet 15 MG PO ×2 (08:51→18:51)
[2021-07-07] MEDS: famotidine 20 mg Tablet PO ×2 (08:51→18:48)
[2021-07-07] MEDS: gabapentin 400 mg Capsule 800 MG PO ×3 (08:51→19:33)
[2021-07-07] MEDS: HYDROcodone-acetaminophen 7.5-325 mg Tablet 1 TAB PO (08:57)
--- NOTE | 2021-07-07 09:23 | USCV_ITS ---
Fahad Chakraborty Age: 60 Gender: M : 1960 Exam Date: 07/07/2021 10:01 Ordering Phys: Franklin Veliz MD (Andy) ([email or web address] [place]) Technologist: ELISE Exam Location: [facility] [place] Indication: CABG RIGHT LEFT LOWER EXTREMITY Diameter Diameter (cm) (cm) 0.47 High Thigh 0.69 0.27 Mid Thigh 0.44 0.40 Above Knee 0.40 0.25 Below Knee 0.33 0.19 Mid Calf 0.31 0.18 Ankle 0.42 RIGHT LEFT Findings Right greater saphenous vein mapped and measured as above. Left greater saphenous vein mapped and measured as above. The veins were found to be easily compressible Conclusions 1. Normal caliber veins at the above-knee level on the right side and both above-knee and below-knee levels on the left side. 2. The veins were found to be patent and easily compressible Dr Artie Gerard MD [facility] (Electronically Signed) Final Date: 07 July 2021 22:56 S
[2021-07-07 11:31] LABS: Alanine Aminotransferase 14 U/L (0-41); Albumin Level 3.6 g/dL (3.5-5.2); Alkaline Phosphatase 47 IU/L (40-130); Aspartate Amino Transferase 12 U/L (0-40); Free T4 Free Thyroxine 0.94 ng/dL (0.82-1.77); Thyroid Stimulating Hormone 3.97 uIU/mL (0.27-4.20); Total Bilirubin 0.2 mg/dL (0.15-1.2); Total Protein 5.6 g/dL (6.6-8.7)
--- NOTE | 2021-07-07 12:02 | PM.PN ---
Subjective Subjective: Interval history: Fahad underwent angiogram this morning. He reports no chest discomfort. Denies any shortness of breath. Medications: Reviewed: Yes Vitals/I&O/Wt Last Vital Signs Temp 98 F 07/07/21 03:57 Pulse 71 07/07/21 09:32 Resp 18 07/07/21 09:32 BP 94/69 07/07/21 09:32 Pulse Ox 95 07/07/21 09:32 07/06/21 07/07/21 07/07/21 22:59 06:59 14:59 Intake Total 236 / 1236 1297.5 / 2533.5 236 / 236 Output Total 950 / 950 825 / 1775 100 / 100 Balance -714 / 286 472.5 / 758.5 136 / 136 Weight last 48 hrs Weight 90.718 kg Physical Exam Narrative: EXAM NARRATIVE: General exam is a white male, no distress, no chest discomfort Neck is supple no lymphadenopathy or thyromegaly Cardiovascular regular rate and rhythm without murmur Lungs clear no wheezing or crackles Abdomen is soft nontender with positive bowel sounds. No obvious organomegaly Extremities no cyanosis clubbing or edema, cap refill brisk. No significant hematoma right wrist Data : 07/07/21 04:18 07/07/21 04:18 A&P Assessment and plan (1) Chest pain: Patient with significant underlying substrate according to his last angiogram Cardiology consultation appreciated Serial troponins negative I do not see compelling evidence to repeat echocardiogram at this time. Last echo in September 2020 demonstrated 1/4 diastolic dysfunction, EF of 60%. Repeat angiogram was ordered by cardiology no significant changes Angiogram today demonstrates three-vessel disease with significant LAD disease. Evaluation by cardiothoracic surgery recommended. Status: Acute Qualifiers: Chest pain type: unspecified Qualified Code(s): R07.9 - Chest pain, unspecified (2) Coronary artery disease: Continue aspirin, statin, beta-frank. Plavix held for consideration of CT surgery. Status: Acute Qualifiers: Coronary Disease-Associated Artery/Lesion type: [place] artery [place] vs. transplanted heart: [place] heart Associated angina: with other forms of angina Qualified Code(s): I25.118 - Atherosclerotic heart disease of [place] coronary artery with other forms of angina pectoris (3) HTN (hypertension): Continue beta-frank Note that blood pressure slightly low on admission. Discontinue lisinopril Status: Acute Qualifiers: Hypertension type: essential hypertension Qualified Code(s): I10 - Essential (primary) hypertension Additional A&P Information Multiple other medical problems as outlined in his past medical history Full code Lovenox for DVT prophylaxis Attestations Medical Necessity Statement*: Needs continued hospitalization for evaluation of left main disease and possible cardiothoracic surgery. Coding Level of Care Code Acute Site Leader for [facility] Tangelad Diagnoses Chest pain R07.9 Chest pain type: unspecified Coronary artery disease I25.118 Coronary Disease-Associated Artery/Lesion type: [place] artery [place] vs. transplanted heart: [place] heart Associated angina: with other forms of angina HTN (hypertension) I10 Hypertension type: essential hypertension
--- NOTE | 2021-07-07 12:39 | PC.OT ---
Post op CABG education provided. Pt provided with written/picture handouts for sternal precautions, energy conservation and pursed lip breathing techniques. Will await OT eval/tx orders after surgery has been completed.
--- NOTE | 2021-07-07 13:00 | PC.NURSE ---
TR band removed per protocol no adverse events noted
[2021-07-07] MEDS: enoxaparin 40 mg/0.4 mL Syringe SUBCUT (14:21)
--- NOTE | 2021-07-07 16:19 | PM.CONSULT ---
Providers/Reason For Consult Consulting Physician/Specialty*: Dr. Veliz/cardiothoracic surgery Reason for Consult*: Coronary artery disease with left main coronary artery stenosis Requesting Physician: Dr. Nieto Attending Physician: Richard Jeffrey MD Primary Care Provider: Thomas Moy DO History of Present Illness History of Present Illness Fahad Chakraborty is a 60 year old male who underwent left heart catheterization earlier this morning by Dr. Nieto after presenting to the emergency department with chest discomfort associated with shortness of breath and near syncope. This has been the waxing and waning for a couple of days prior to presentation. He is a history of known coronary artery disease and prior interventions to the LAD and circumflex vessels. Previous cardiac catheterization in September of this year had noted a left main stenosis of 40% with a RCA ostial stenosis of approximately 30%. He underwent intervention to the circumflex vessel. These have now increased to the left main stenosis of 80% and a RCA ostial stenosis of 70%. As well, he has a post LAD mid vessel stent stenosis of now 80%. The previously stented areas in the LAD and circumflex vessel remain widely patent. Given the progression of his left main and RCA ostial stenoses, Dr. Nieto recommended consideration for surgical revascularization. I have personally reviewed the catheterization results with Dr. Nieto and have conferred and discussed as well with Dr. Cason. Presently, Mr. Chakraborty is resting comfortably on the cardiac stepdown salvador and is pain-free Dr. Nieto have spoken with Mr. Chakraborty and his family and all appear to be in agreement to proceed with evaluation to consider surgery revascularization. Transthoracic echocardiogram July 06 reveals preserved LV function without significant valvular abnormality. Mr. Chakraborty has a long and continued history of tobacco use and there has been some previous concerns for compliance issues as well. He also has a history of depression and has had mental health treatment for this. Hospitalization from June 20 through June 23 presenting with suicidal ideation with a 96-hour hold. Review of Systems Const: Denies: fever(s), chills, change in appetite, change in weight, fatigue or night sweats Eyes: Denies: change in vision or blurry vision ENMT: Denies: odynophagia or hoarseness Card: Reports: chest pain, lightheadedness and dyspnea on exertion; Denies: palpitations, irregular heart rhythm or edema Resp: Reports: dyspnea; Denies: productive cough or hemoptysis GI: Denies: abdominal pain, nausea, vomiting, dysphagia, heartburn or change in bowel habits : Denies: difficulty urinating, dysuria, urinary frequency, urinary urgency or urinary hesitancy Musc: Denies: extremity pain or extremity swelling Skin/Breast: Denies: rash Neuro: Denies: headache(s), numbness in extremities, weakness in extremities or sensory changes Psych: Reports: anxiety, depression and suicidal ideation (Past history); Denies: change in appetite Endo: Denies: polyuria, polydipsia or cold intolerance Neal/Lymph: Denies: easy bruising, easy bleeding, petechiae or enlarged lymph nodes Meds/Allergies Home Medications and Allergies Home Medications Medication Instructions Recorded Confirmed Last Taken Type aspirin 81 mg tablet,delayed 81 mg PO QAM 12/24/19 07/06/21 07/06/21 07:00 History release clopidogrel 75 mg tablet 75 mg PO QAM 12/24/19 07/06/21 07/06/21 07:00 History cyclobenzaprine 10 mg tablet 10 mg PO BEDTIME tab 12/24/19 07/06/21 07/05/21 History metoprolol tartrate 50 mg tablet 25 mg PO QAM tab 12/24/19 07/06/21 07/06/21 07:00 History nitroglycerin 0.4 mg sublingual 0.4 mg SUBLINGUAL Q5M PRN 12/24/19 07/06/21 Unknown History tablet hydrocodone-acetaminophen 1 tab PO Q6H PRN #12 tab 06/20/20 07/06/21 10/01/20 Rx finasteride 5 mg tablet 5 mg PO QAM 07/07/20 07/06/21 07/06/21 07:00 History famotidine 20 mg PO BID #0 10/06/20 07/06/21 07/06/21 07:00 History lisinopril 5 mg PO QAM #0 10/06/20 07/06/21 07/06/21 07:00 History simvastatin 40 mg PO BEDTIME #0 10/06/20 07/06/21 07/05/21 History buspirone 15 mg PO BID 07/06/21 07/06/21 07/06/21 07:00 History gabapentin 800 mg PO TID 07/06/21 07/06/2107/06/21 07:00 History trazodone 50 mg PO BEDTIME 07/06/21 07/06/21 07/05/21 History Allergies Allergy/AdvReac Type Severity Reaction Status Date / Time tramadol [From Ultram] Allergy Severe Seizures Verified 07/06/21 12:38 celecoxib [From Celebrex] Allergy Mild Chronic Verified 07/06/21 12:38 Diarrhea ibuprofen AdvReac Mild Taking Verified 07/06/21 12:38 Plavix mint Allergy Unknown Uncoded 07/03/21 11:33 Current Medications Current Medications Generic Name Dose Route Start Last Admin Trade Name Freq PRN Reason Stop Dose Admin Hydrocodone Bitart/Acetaminophen 1 tab 07/06/21 14:09 07/07/21 08:57 Hydrocodone-Acetaminophen 7.5-325 Mg Tablet PO 1 tab Q6H PRN Administration pain Aspirin 81 mg 07/07/21 06:00 07/07/21 04:39 Aspirin 81 Mg Ec Tablet PO 81 mg QAM YINKA Administration Atorvastatin Calcium 20 mg 07/06/21 21:00 07/06/21 20:04 Atorvastatin 40 Mg Tablet PO 20 mg BEDTIME YINKA Administration Buspirone HCl 15 mg 07/06/21 18:00 07/07/21 08:51 Buspirone 10 Mg Tablet PO 15 mg BID YINKA Administration Enoxaparin Sodium 40 mg 07/06/21 14:09 07/07/21 14:21 Enoxaparin 40 Mg/0.4 Ml Syringe SUBCUT 40 mg Q24H YINKA Administration Famotidine 20 mg 07/06/21 18:00 07/07/21 08:51 Famotidine 20 Mg Tablet PO 20 mg BID YINKA Administration Finasteride 5 mg 07/07/21 06:00 07/07/21 04:39 Finasteride 5 Mg Tablet PO 5 mg QAM YINKA Administration Gabapentin 800 mg 07/06/21 15:00 07/07/21 14:20 Gabapentin 400 Mg Capsule PO 800 mg TID YINKA Administration Sodium Chloride 1,000 mls @ 75 mls/hr 07/06/21 14:09 07/07/21 04:40 Sodium Chloride 0.9% IV 75 mls/hr .[id number] YINKA Administration Sodium Chloride 1,000 mls @ 50 mls/hr 07/07/21 05:00 07/06/21 20:53 Sodium Chloride 0.9% IV 07/08/21 00:59 Not Given .Q20H ONE Sodium Chloride 1,000 mls @ 50 mls/hr 07/06/21 21:12 07/06/21 22:19 Sodium Chloride 0.9% IV 07/07/21 17:11 Not Given .Q20H ONE Isosorbide Mononitrate 20 mg 07/07/21 09:00 07/07/21 08:50 Isosorbide Mononitrate 20 Mg Tablet PO 20 mg BID YINKA Administration Metoprolol Tartrate 25 mg 07/07/21 06:00 07/07/21 04:39 Metoprolol Tartrate 50 Mg Tablet PO 25 mg QAM YINKA Administration Morphine Sulfate 2 mg 07/06/21 14:09 07/07/21 06:59 Morphine 4 Mg/Ml Sdv 1 Ml IVP 2 mg Q4H PRN Administration SEVERE PAIN Trazodone HCl 50 mg 07/06/21 21:00 07/06/21 20:04 Trazodone 50 Mg Tablet PO 50 mg BEDTIME YINKA Administration PFSH Acute PFSH: Medical History BPH (benign prostatic hyperplasia) Coronary artery disease Angiogram demonstrated LAD 60%, mid circumflex 90%, proximal RCA 60%. Intervention circumflex HTN (hypertension) Hyperlipidemia LDL goal <70 Surgical History S/P PTCA (percutaneous transluminal coronary angioplasty) Family History Sister Stroke Mother Stroke CAD (coronary artery disease) Social History Smoking and tobacco status: current some day smoker Alcohol intake: never Vitals/I&O/Wt Last Vital Signs Temp 98 F 07/07/21 03:57 Pulse 76 07/07/21 12:57 Resp 20 H 07/07/21 12:57 BP 89/62 07/07/21 12:57 Pulse Ox 100 07/07/21 12:57 07/07/21 07/07/21 07/07/21 06:59 14:59 22:59 Intake Total 1297.5 / 2533.5 472 / 472 Output Total 825 / 1775 500 / 500 Balance 472.5 / 758.5 -28 / -28 Weight last 48 hrs Weight 200 lb Physical Exam Const: COMMON NORMALS: patient oriented x3 and alert ORIENTATION/CONSCIOUSNESS: Yes oriented to person, Yes oriented to place and Yes oriented to time HENMT: COMMON NORMALS: normocephalic HEAD & SCALP: normocephalic Neck/C-Spine: COMMON NORMALS: full ROM, supple, no JVD and No carotid bruits GENERAL: Yes trachea midline CERVICAL SPINE: Yes cervical ROM normal Chest: COMMONS NORMALS: normal inspection of the chest and normal palpation of entire chest wall Resp: COMMON NORMALS: normal respiratory effort, No use of accessory muscles, clear to auscultation bilaterally and percussion normal EFFORT & INSPECTION: Yes able to speak in complete sentences and Yes symmetric chest movement AUSCULTATION: clear to auscultation bilaterally PERCUSSION: percussion normal Cardio: COMMON NORMALS: no JVD, regular rate, regular rhythm, S1 normal heart sound present, S2 normal heart sound present, No gallops present (Cardio), No murmurs present (Cardio) and No rub (Cardio) JUGULAR VENOUS DISTENTION: no JVD RATE: regular rate RHYTHM: regular rhythm HEART SOUNDS: S1 normal heart sound present and S2 normal heart sound present PERIPHERAL PULSES: radial pulses present positive bilateral 2+ Extremity: COMMON NORMALS: no clubbing, cyanosis or edema Neuro: COMMON NORMALS: patient oriented x3, no focal motor deficits and no sensory deficits noted SENSORIUM/ORIENTATION: Yes alert, Yes oriented to person, Yes oriented to place and Yes oriented to time GAIT: Yes Normal gait present A&P Assessment and plan (1) Left main coronary artery disease: Mr. Chakraborty is a 60-year-old gentleman with progression of known coronary disease status post PTCA and stenting to the LAD and circumflex vessels. He represented with further chest discomfort and cardiac catheterization this morning by Dr. Nieto has revealed 80% left main coronary artery stenosis along with 70 to 80% ostial RCA stenosis andstenosis of 80% in the mid LAD distal to a prior stented area which is widely patent. Due to progression of his coronary artery disease as well as left main stenosis, surgery revascularization has been recommended. I have reviewed the studies at length with Dr. Nieto. I had a careful, kenney, lengthy, detailed discussion with Mr. Chakraborty. I reviewed with him, utilizing our written educational materials, his anatomy and our proposed plan to consider coronary artery bypass grafting. Details and risks of CABG were carefully and frankly reviewed. Risks discussed include the possibility of , stroke, heart attack, major bleeding possibly requiring the need to reopen chest, infection, pneumonia, organ failure, failure to benefit, early closure of the bypass grafts, inability to complete the procedure, prolonged hospitalization, blood clots to lungs or other organs, need for further interventions, continued pain after surgery, need for future surgery, and possible long-term bleeding risk secondary to medication requirements. All questions were answered. He stated understanding. Given his prior history of depression and suicidal ideation, I have conferred with our hospice colleague Dr. Jeffrey. I have recommended consideration for psychiatric consultations to assist with management in the pre and post surgical periods. Weekly, given the tendency for postoperative depression following major surgery, I feel to be advantageous to have our psychiatry colleagues assist us in this area. Proceed with preoperative evaluation along with continued education with our written and video materials. Presently, we will tentatively plan for CABG on July 09. Status: Acute Consult Attestations Medical Necessity Statement: Severe coronary artery disease with left main coronary artery stenosis Time Spent in Patient Care: Greater than 35 minutes Coding Level of Care Code Acute Specialties Operator for Manjit Barney Diagnoses Left main coronary artery disease I25.10
[2021-07-07] MEDS: chlorhexidine gluconate 0.12% Btl 473 mL 15 ML MUCOUS MEM (18:48)
[2021-07-07] MEDS: mupirocin oint 22 gm 1 APPLIC NASAL (18:50)
--- NOTE | 2021-07-07 19:11 | PC.NURSE ---
Dr. Nieto notified of blood pressure of 86/66. Ordered to stop Imdur and Metoprolol orders.
[2021-07-07] MEDS: atorvastatin 40 mg Tablet 20 MG PO (19:33)
--- NOTE | 2021-07-07 20:16 | PC.NURSE ---
Patient showered with topical betasept and complete linen change.
[2021-07-07] MEDS: chlorhexidine gluconate 4% Btl 118 mL 1 APPLIC TOPICAL (20:49)
[2021-07-08] VITALS (53 sets, daily range): BP systolic 92–143; BP diastolic 64–94; PULSE 74–104; RESP 0–27; TEMP 36.4–36.8; O2SAT 94–98
[2021-07-08] MEDS: chlorhexidine gluconate 4% Btl 118 mL 1 APPLIC TOPICAL ×2 (04:15→16:58)
[2021-07-08] MEDS: finasteride 5 mg Tablet PO (04:15)
[2021-07-08] MEDS: ALPRAZolam 0.5 mg Tablet 0.25 MG PO ×3 (05:12→22:13)
[2021-07-08 05:32] LABS: Basophils # 0.1 10^3/uL (0.0-0.1); Basophils % 0.7 %; Eosinophils # 0.2 10^3/uL (0.0-0.8); Eosinophils % 2.4 %; Hematocrit 40.6 % (42.0-52.0); Hemoglobin 13.8 g/dL (11.7-16.6); Lymphocytes # 2.3 10^3/uL (0.8-4.8); Lymphocytes % 26.5 %; Mean Corpuscular Hemoglobin 33.2 pg (28.0-34.0); Mean Corpuscular Volume 97.6 fl (80-94); Mean Platelet Volume 11.5 fL (7.4-10.4); Monocytes # 0.8 10^3/uL (0.2-0.9); Monocytes % 8.6 %; Neutrophils # 5.39 10^3/uL (1.8-7.7); Neutrophils % 61.3 %; Nucleated Red Blood Cells % 0 %; Platelet Count 195 10^3/cmm (130-400); Red Blood Count 4.16 10^6/uL (4.1-5.3); Red Cell Distribution Width 12.2 % (12.1-15.1); White Blood Count 8.8 10^3/uL (4.0-10.0)
[2021-07-08 05:53] LABS: Anion Gap 13.2 (5-19); Blood Urea Nitrogen 13 mg/dL (8-23); Calcium 9.1 mg/dL (8.5-10.5); Carbon Dioxide 26 mmol/L (22-29); Chloride 101 mmol/L (98-107); Glucose 98 mg/dL (65-115); Osmolality Calculated 282 mOsm/kg (285-295); Potassium 4.2 mmol/L (3.5-5.1); Sodium 136 mmol/L (136-145)
--- NOTE | 2021-07-08 07:09 | PM.PN ---
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 Nurses report no events overnight. No arrhythmias reported. No reports of chest discomfort. Saphenous vein mapping has been completed. He appears to have adequate veins in both thighs as well as in the left lower leg below the knee. Chest x-ray is clear. A.m. lab looks good. Vitals/I&O/Wt Last Vital Signs Temp 98.3 F 07/08/21 03:17 Pulse 88 07/08/21 03:51 Resp 14 07/08/21 03:17 BP 103/65 07/08/21 03:17 Pulse Ox 94 07/08/21 03:17 07/07/21 07/08/21 07/08/21 22:59 06:59 14:59 Intake Total 236 / 708 400 / 1108 Output Total 1050 / 1550 Balance 236 / 208 -650 / -442 Weight last 48 hrs Weight 200 lb Data : 07/08/21 04:42 07/08/21 04:42 A&P Assessment and plan (1) Left main coronary artery disease: We will plan to proceed with CABG for tomorrow morning. Apparently, Mr. Chakraborty wishes to be dismissed for 2 to 3 hours to leave the facility to care for some personal items. Nurses will discuss with administrative staff the feasibility of allowing this. Status: Acute Attestations Medical Necessity Statement*: Left main coronary artery stenosis with ostial RCA disease with progression since September status post ending to the circumflex and LAD. Time Spent in Patient Care: less than 15 minutes Coding Level of Care Code Acute High Value Associate for Manjit Barney Diagnoses Left main coronary artery disease I25.10
[2021-07-08] MEDS: gabapentin 400 mg Capsule 800 MG PO ×3 (07:58→19:53)
[2021-07-08] MEDS: BuSPIRONE 10 mg Tablet 15 MG PO ×2 (07:58→16:57)
[2021-07-08] MEDS: famotidine 20 mg Tablet PO ×2 (07:58→16:58)
--- NOTE | 2021-07-08 08:04 | PC.NURSE ---
Patient states at this time that Dr. Nieto wrote orders for me to go home for a few hours to visit family and see my grandkids . Will follow up on orders.
--- NOTE | 2021-07-08 08:51 | PC.NURSE ---
Patient came to nurses station and stated that after his shower this morning and having the significant chest pain he had, he thinks it is in his best interest to not leave the hospital. States that I can relay the information to the charge nurse.
--- NOTE | 2021-07-08 09:00 | PM.PN ---
Subjective Subjective: Interval history: Fahad reports he had an episode of chest discomfort this morning while showering it went away with rest. He denies any chest discomfort currently. Medications: Reviewed: Yes Vitals/I&O/Wt Last Vital Signs Temp 98.0 F 07/08/21 08:00 Pulse 97 07/08/21 08:00 Resp 18 07/08/21 08:00 BP 92/72 07/08/21 08:00 Pulse Ox 94 07/08/21 08:00 07/07/21 07/08/21 07/08/21 22:59 06:59 14:59 Intake Total 236 / 708 400 / 1108 240 / 240 Output Total 1050 / 1550 Balance 236 / 208 -650 / -442 240 / 240 Physical Exam Narrative: EXAM NARRATIVE: General exam is a white male, no distress, no chest discomfort Neck is supple no lymphadenopathy or thyromegaly Cardiovascular regular rate and rhythm without murmur Lungs clear no wheezing or crackles Abdomen is soft nontender with positive bowel sounds. No obvious organomegaly Extremities no cyanosis clubbing or edema, cap refill brisk. No significant hematoma right wrist Data : 07/08/21 04:42 07/08/21 04:42 A&P Assessment and plan (1) Chest pain: Patient with significant underlying substrate according to his last angiogram Cardiology consultation appreciated Serial troponins negative I do not see compelling evidence to repeat echocardiogram at this time. Last echo in September 2020 demonstrated 1/4 diastolic dysfunction, EF of 60%. Repeat angiogram was ordered by cardiology no significant changes Angiogram 07/07 demonstrates three-vessel disease with significant LAD disease. Cardiothoracic surgery has evaluated and surgery is planned for July 09. Status: Acute Qualifiers: Chest pain type: unspecified Qualified Code(s): R07.9 - Chest pain, unspecified (2) Coronary artery disease: Continue aspirin, statin. Plavix held for CT surgery. Metoprolol discontinued by cardiology. Status: Acute Qualifiers: Coronary Disease-Associated Artery/Lesion type: [place] artery [place] vs. transplanted heart: [place] heart Associated angina: with other forms of angina Qualified Code(s): I25.118 - Atherosclerotic heart disease of [place] coronary artery with other forms of angina pectoris (3) HTN (hypertension): Note that blood pressure slightly low on admission. Lisinopril was discontinued. Metoprolol discontinued by cardiology. They will clarify. Status: Acute Qualifiers: Hypertension type: essential hypertension Qualified Code(s): I10 - Essential (primary) hypertension Additional A&P Information Multiple other medical problems as outlined in his past medical history Full code Lovenox for DVT prophylaxis Attestations Medical Necessity Statement*: Needs continued hospitalization for definitive care with coronary artery bypass grafting secondary to three-vessel coronary disease Coding Level of Care Code Acute Communications Editor for [facility] Fwd Diagnoses Chest pain R07.9 Chest pain type: unspecified Coronary artery disease I25.118 Coronary Disease-Associated Artery/Lesion type: [place] artery [place] vs. transplanted heart: [place] heart Associated angina: with other forms of angina HTN (hypertension) I10 Hypertension type: essential hypertension
--- NOTE | 2021-07-08 09:01 | ANES.PREANE2 ---
Pre-Anesthetic Assessment Pre-Anesthetic Assessment: Height/Weight: Height 1.83 m Weight 90.718 kg Temp Pulse Resp BP Pulse Ox 98.0 F 97 18 92/72 94 07/08/21 08:00 07/08/21 08:00 07/08/21 08:00 07/08/21 08:00 07/08/21 08:00 Preop Diagnosis: Left main coronary artery stenosis Proposed Procedure: Operation Date: 07/07/21 06:00 Proposed Procedures p Cardiac Catheterization(Left) - Patrick Nieto MD Operation Date: 07/09/21 07:00 Proposed Procedures p CABG(Not Applicable) - Franklin Veliz MD Was Beta Nila taken within 24 hours: Yes Was Clonidine taken within 24 hours: N/A Social: Social History: Tobacco and No alcohol Exam: Pre-Anes Outpt Exam: alert, oriented x 3, clear to auscultation bilaterally and regular rate & rhythm Airway: Submandibular: WNL Cervical ROM: WNL MP: 2 Dentition: False Pulmonary: Pulmonary: COPD CV/HEM: CV/HEM: CAD and HTN Comments: EF 55%, 3 vessel CADz, left main Metabolic: Metabolic: Hyperlipidemia Neuropsych: Neuropsych: Anxiety and Depression Anesthetic Plan: ASA status: 4 Anesthesia: General Other: A.line, CVL/PAC, JOSÉ MIGUEL Risk of > 500 ml blood loss (7ml/kg in children): Yes, adequate IV access and fluids planned Meds/Allergies Current Medications: Current Medications Generic Name Dose Route Start Last Admin Trade Name Freq PRN Reason Stop Dose Admin Hydrocodone Bitart /Acetaminophen 1 tab 07/06/21 14:09 07/07/21 08:57 Hydrocodone-Acet aminophen 7.5-325 Mg Tablet PO 1 tab Q6H PRN Administration pain Alprazolam 0.25 mg 07/07/21 19:11 07/08/21 05:12 Alprazolam 0.5 M g Tablet PO 0.25 mg Q8H PRN Administration ANXIETY Aspirin 81 mg 07/07/21 06:00 07/08/21 03:40 Aspirin 81 Mg Ec Tablet PO Not Given QAM YINKA Atorvastatin Calci um 20 mg 07/06/21 21:00 07/07/21 19:33 Atorvastatin 40 Mg Tablet PO 20 mg BEDTIME YINKA Administration Buspirone HCl 15 mg 07/06/21 18:00 07/08/21 07:58 Buspirone 10 Mg Tablet PO 15 mg BID YINKA Administration Chlorhexidine Gluc maria luz 15 ml 07/07/21 18:00 07/07/21 18:48 Chlorhexidine Gl uconate 0.12% Btl 473 Ml MUCOUS MEM 15 ml BID YINKA Administration Chlorhexidine Gluc maria luz 1 applic 07/07/21 20:45 07/08/21 04:15 Chlorhexidine Gl uconate 4% Btl 118 Ml TOPICAL 1 applic BID YINKA Administration Enoxaparin Sodium 40 mg 07/06/21 14:09 07/08/21 07:24 Enoxaparin 40 Mg /0.4 Ml Syringe SUBCUT Not Given Q24H YINKA Famotidine 20 mg 07/06/21 18:00 07/08/21 07:58 Famotidine 20 Mg Tablet PO 20 mg BID YINKA Administration Finasteride 5 mg 07/07/21 06:00 07/08/21 04:15 Finasteride 5 Mg Tablet PO 5 mg QAM YINKA Administration Gabapentin 800 mg 07/06/21 15:00 07/08/21 07:58 Gabapentin 400 M g Capsule PO 800 mg TID YINKA Administration Sodium Chloride 1,000 mls @ 75 ml s/hr 07/06/21 14:09 07/07/21 04:40 Sodium Chloride 0.9% IV 75 mls/hr .[id number] YINKA Administration Morphine Sulfate 2 mg 07/06/21 14:09 07/07/21 06:59 Morphine 4 Mg/Ml Sdv 1 Ml IVP 2 mg Q4H PRN Administration SEVERE PAIN Mupirocin 1 applic 07/07/21 18:00 07/07/21 18:50 Mupirocin Oint 2 2 Gm NASAL 1 applic BID YINKA Administration Trazodone HCl 50 mg 07/06/21 21:00 07/06/21 20:04 Trazodone 50 Mg Tablet PO 50 mg BEDTIME YINKA Administration PFSH Anesthesia PFSH: Medical History BPH (benign prostatic hyperplasia) Coronary artery disease Angiogram demonstrated LAD 60%, mid circumflex 90%, proximal RCA 60%. Intervention circumflex HTN (hypertension) Hyperlipidemia LDL goal <70 Surgical History S/P PTCA (percutaneous transluminal coronary angioplasty) Family History Sister Stroke Mother Stroke CAD (coronary artery disease) Social History Smoking and tobacco status: current some day smoker Alcohol intake: never Data Anesthesia CBC & Chem 7: 07/08/21 04:42 07/08/21 04:42 Other Labs: Laboratory Results - last 48 hr 07/06/21 07/06/21 07/06/21 09:05 10:26 14:50 WBC RBC Hgb Hct MCV MCH MCHC RDW Plt Count MPV Neut % (Auto) Lymph % (Auto) [place] % (Auto) Eos % (Auto) Baso % (Auto) Neut # (Auto) Lymph # (Auto) [place] # (Auto) Eos # (Auto) Baso # (Auto) Nucleated RBC % (auto) Nucleated RBCs # Sodium Potassium Chloride Carbon Dioxide Anion Gap BUN Creatinine GFR Calculation Glucose Calculated Osmolality Calcium Total Bilirubin Direct Bilirubin AST ALT Alkaline Phosphatase Troponin T 120 Minute 9.84 Delta Troponin T -1.16 L Troponin T Hi Sens 6Hr 8.39 Troponin T Hi Sens 6Hr Delta -2.61 L Total Protein Albumin Globulin TSH Free T4 Urine Color Straw Urine Appearance Clear Urine pH 5 Ur Specific [place] 1.005 Urine Protein Neg Urine Glucose (UA) Norm Urine Ketones Negative Urine Blood Neg Urine Nitrate Negative Urine Bilirubin Neg Urine Urobilinogen Norm Ur Leukocyte Esterase Negative Blood Type Rho(D) Type Antibody Screen 07/07/21 07/07/21 07/07/21 04:18 04:18 10:35 WBC 7.7 RBC 3.95 L Hgb 13.2 Hct 39.0 L MCV 98.7 H MCH 33.4 MCHC 33.8 RDW 12.4 Plt Count 177 MPV 11.6 H Neut % (Auto) 51.2 Lymph % (Auto) 35.4 [place] % (Auto) 9.4 Eos % (Auto) 2.9 Baso % (Auto) 0.8 Neut # (Auto) 3.93 Lymph # (Auto) 2.7 [place] # (Auto) 0.7 Eos # (Auto) 0.2 Baso # (Auto) 0.1 Nucleated RBC % (auto) 0 Nucleated RBCs # 0.0 Sodium 142 Potassium 4.4 Chloride 108 H Carbon Dioxide 27 Anion Gap 11.4 BUN 9 Creatinine 0.7 GFR Calculation 115.0 Glucose 87 Calculated Osmolality 292 Calcium 8.4 L Total Bilirubin 0.3 0.2 Direct Bilirubin 0.20 AST 16 12 ALT 16 14 Alkaline Phosphatase 51 47 Troponin T 120 Minute Delta Troponin T Troponin T Hi Sens 6Hr Troponin T Hi Sens 6Hr Delta Total Protein 5.5 L 5.6 L Albumin 3.6 3.6 Globulin 1.9 2.0 TSH 3.97 Free T4 0.94 Urine Color Urine Appearance Urine pH Ur Specific [place] Urine Protein Urine Glucose (UA) Urine Ketones Urine Blood Urine Nitrate Urine Bilirubin Urine Urobilinogen Ur Leukocyte Esterase Blood Type Rho(D) Type Antibody Screen 07/07/21 07/08/21 07/08/21 10:35 04:42 04:42 WBC 8.8 RBC 4.16 Hgb 13.8 Hct 40.6 L MCV 97.6 H MCH 33.2 MCHC 34.0 RDW 12.2 Plt Count 195 MPV 11.5 H Neut % (Auto) 61.3 Lymph % (Auto) 26.5 [place] % (Auto) 8.6 Eos % (Auto) 2.4 Baso % (Auto) 0.7 Neut # (Auto) 5.39 Lymph # (Auto) 2.3 [place] # (Auto) 0.8 Eos # (Auto) 0.2 Baso # (Auto) 0.1 Nucleated RBC % (auto) 0 Nucleated RBCs # 0.0 Sodium 136 Potassium 4.2 Chloride 101 Carbon Dioxide 26 Anion Gap 13.2 BUN 13 Creatinine 0.7 GFR Calculation 115.0 Glucose 98 Calculated Osmolality 282 L Calcium 9.1 Total Bilirubin Direct Bilirubin AST ALT Alkaline Phosphatase Troponin T 120 Minute Delta Troponin T Troponin T Hi Sens 6Hr Troponin T Hi Sens 6Hr Delta Total Protein Albumin Globulin TSH Free T4 Urine Color Urine Appearance Urine pH Ur Specific [place] Urine Protein Urine Glucose (UA) Urine Ketones Urine Blood Urine Nitrate Urine Bilirubin Urine Urobilinogen Ur Leukocyte Esterase Blood Type O Positive Rho(D) Type Positive Antibody Screen Negative Cardiac Studies: Echocardiogram 07/06/21
--- NOTE | 2021-07-08 09:42 | PC.NURSE ---
Patient states that since having chest pain after his shower this morning he has had a pain in his mid back that is constant. Denies the pain radiating also states nothing makes the pain worse nor does anything make it better.
--- NOTE | 2021-07-08 09:49 | PC.NURSE ---
Dr. Nieto notified at this time of pain noted by patient. States to give morphine at this time.
--- NOTE | 2021-07-08 09:52 | PC.CHAP ---
Pastoral Care Encounter/Spiritual Assessment Type of Contact [] Declined medical records director visit [] Patient/Family/Request visit [] Outpatient visit [] Follow-up visit [] Physician referral [] Code/Alert [x] Routine visit [] Staff referral [] Actively dying [] Patient sleeping [] Family support [] [] Out of room [] Palliative care [] [] Receiving care in room [] Pre-surgical visit [] Trauma [] Long length of stay [] ICU visit [] Other: Relational/Emotional Strength [] Patient feels connected with others/family/visitors/staff [] Distress [] Loneliness/isolation [] Abandonment Spirituality of Patient [] Person of [place] [] Attends Church of their [place] [] Believes in Prayer [] Reads Bible or Temple materials [] There are Spiritual issues to be addressed Room Service Bellhop Interventions [x] Prayer [x] Active listening [x] Non-anxious presence [x] Spiritual/emotional support [] Crisis/trauma care [] Spiritual counseling [] Bereavement support [] Provided bereavement packet [] Provided Bible/devotional materials [] Provided toy/stuffed animal, coloring book to patient or family member [] Provided Communion [] Anointing/[place] [] Salvation [x] Completed spiritual assessment [] Other: Impact on Illness or Injury [] Angry [] Fearful [] Anxious [] Often cries [] Exhaustion [] Unable to work [] Unable to attend episcopalian [] Unable to walk/stand [] Unable to read [] Unable to drive [] Unable to eat/drink [] Unable to sleep [] Unable to be with family [] Patient intubated [] Other: Summary patient speaks very highly of [facility]... Time spent with patient 10 min
[2021-07-08] MEDS: morphine 4 mg/mL SDV 1 mL 2 MG IVP (10:07)
[2021-07-08] MEDS: mupirocin oint 22 gm 1 APPLIC NASAL ×2 (15:37→16:59)
[2021-07-08] MEDS: chlorhexidine gluconate 0.12% Btl 473 mL 15 ML MUCOUS MEM ×2 (15:37→17:01)
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
--- NOTE | 2021-07-08 18:06 | P.MISC_ITS ---
Miscellaneous Note Purpose of Documentation: Mr. Chakraborty reports he did have a bit of chest discomfort while he was showering today though none since. He is in good spirits this afternoon on rounds and is pain-free. No arrhythmias reported. Due to scheduling conflicts and staffing a [facility], we will delay his surgery from tomorrow. I have conferred with my colleague Dr. Nieto and have spoken with Mr. Chakraborty about this needed delay. They are both in agreement. We will have an update on rescheduled time, midday tomorrow. He may resume his diet through midnight and have breakfast in the morning.
[2021-07-08] MEDS: atorvastatin 40 mg Tablet 20 MG PO (19:53)
[2021-07-08] MEDS: metoprolol tartrate 25 mg Tablet 12.5 MG PO (19:54)
--- NOTE | 2021-07-08 21:13 | PM.PN ---
Subjective Subjective: Interval history: Due to low blood pressure last night medicine was held. This morning we will restart metoprolol at 12.5 mg twice a day due to borderline low blood pressure. Patient while walking had some exertional chest pressure. He is awaiting wearing off of Plavix before surgery. Medications: Reviewed: Yes Vitals/I&O/Wt Last Vital Signs Temp 97.6 F 07/08/21 16:00 Pulse 98 07/08/21 18:24 Resp 18 07/08/21 18:24 BP 134/94 07/08/21 16:00 Pulse Ox 98 07/08/21 18:24 07/08/21 07/08/21 07/08/21 06:59 14:59 22:59 Intake Total 400 / 1108 240 / 240 Output Total 1050 / 1550 Balance -650 / -442 240 / 240 Physical Exam Narrative: EXAM NARRATIVE: GENERAL: Patient is alert, awake and oriented x3. NECK: No jugular vein distension. HEENT: No cyanosis. No icterus. No pallor. HEART: Regular S1 and S2. No murmur, rub or gallop. LUNGS: Clear to auscultate bilaterally. ABDOMEN: Soft, nontender and nondistended. Positive bowel sounds. No guarding, rebound or tenderness. CENTRAL NERVOUS SYSTEM: Grossly nonfocal. EXTREMITIES: Lower extremities without edema bilaterally. Const: COMMON NORMALS: alert Resp: COMMON NORMALS: clear to auscultation bilaterally AUSCULTATION: clear to auscultation bilaterally Neuro: SENSORIUM/ORIENTATION: Yes alert Data : 07/08/21 04:42 07/08/21 04:42 A&P Assessment and plan (1) Coronary artery disease: Status: Acute Qualifiers: Coronary Disease-Associated Artery/Lesion type: [place] artery [place] vs. transplanted heart: [place] heart Associated angina: with other forms of angina Qualified Code(s): I25.118 - Atherosclerotic heart disease of [place] coronary artery with other forms of angina pectoris (2) HTN (hypertension): Status: Acute Qualifiers: Hypertension type: essential hypertension Qualified Code(s): I10 - Essential (primary) hypertension (3) Hyperlipidemia LDL goal <70: Status: Acute (4) Depression: Status: Acute (5) Unstable angina: Status: Acute Patient has presented with unstable angina. Will preoceed with coronary angiogram in the AM Continue aspirin and plavix. Order echocardiogram Lovenox Trend troponins If chest pain persists can start nitro gtt Thank you for involving us with care of this patient. We will continue to foll Attestations Medical Necessity Statement*: Patient required continuation hospitalization for above patient required continuation hospitalization for about different care. Coding Level of Care Code Established Pt Acute Legal Editor for Manjit Barney Patient Type Established History Detailed Exam Detailed Medical Decision Making Moderate Complexity Diagnoses Coronary artery disease I25.118 Coronary Disease-Associated Artery/Lesion type: [place] artery [place] vs. transplanted heart: [place] heart Associated angina: with other forms of angina HTN (hypertension) I10 Hypertension type: essential hypertension Hyperlipidemia LDL goal <70 E78.5 Depression F32.A Unstable angina I20.0
[2021-07-09] VITALS (9 sets, daily range): BP systolic 95–129; BP diastolic 64–93; PULSE 65–109; RESP 15–21; TEMP 36.2–36.7; O2SAT 94–97
[2021-07-09] MEDS: finasteride 5 mg Tablet PO (05:16)
[2021-07-09] MEDS: acetaminophen 325 mg Tablet 650 MG PO (05:16)
[2021-07-09] MEDS: aspirin 81 mg EC Tablet PO (05:16)
--- NOTE | 2021-07-09 06:25 | PM.MISC ---
Miscellaneous Note Purpose of Documentation: Mr. Chakraborty was asleep on my rounds this morning. Nurses report no issues or concerns overnight. We are currently proceeding with formulating surgery scheduling. I will keep in close contact with my colleague Dr. Nieto as we proceed and are hopeful to have plans finalized by midday. I will continue to update Mr. Chakraborty later today as we gain more information.
--- NOTE | 2021-07-09 09:07 | PM.PN ---
Subjective Subjective: Interval history: Fahad reports he had another episode of chest discomfort this morning, with ambulation. It went away with nitroglycerin. He is chest pain-free currently. Medications: Reviewed: Yes Vitals/I&O/Wt Last Vital Signs Temp 97.1 F L 07/09/21 03:28 Pulse 84 07/09/21 03:28 Resp 20 H 07/09/21 03:28 BP 102/73 07/09/21 03:28 Pulse Ox 94 07/09/21 03:28 Physical Exam Narrative: EXAM NARRATIVE: General exam is a white male, no distress Neck is supple no lymphadenopathy or thyromegaly Cardiovascular regular rate and rhythm without murmur Lungs clear no wheezing or crackles Abdomen is soft nontender with positive bowel sounds. No obvious organomegaly Extremities no cyanosis clubbing or edema, cap refill brisk. Data : 07/08/21 04:42 07/08/21 04:42 A&P Assessment and plan (1) Chest pain: Patient with significant underlying substrate according to his last angiogram Cardiology consultation appreciated Serial troponins negative I do not see compelling evidence to repeat echocardiogram at this time. Last echo in September 2020 demonstrated 1/4 diastolic dysfunction, EF of 60%. Repeat angiogram was ordered by cardiology no significant changes Angiogram 07/07 demonstrates three-vessel disease with significant LAD disease. Cardiothoracic surgery is being planned and was intended for today, but is currently in the process of being rescheduled. Status: Acute Qualifiers: Chest pain type: unspecified Qualified Code(s): R07.9 - Chest pain, unspecified (2) Coronary artery disease: Continue aspirin, statin. Plavix held for CT surgery. Metoprolol discontinued by cardiology. Status: Acute Qualifiers: Coronary Disease-Associated Artery/Lesion type: [place] artery [place] vs. transplanted heart: [place] heart Associated angina: with other forms of angina Qualified Code(s): I25.118 - Atherosclerotic heart disease of [place] coronary artery with other forms of angina pectoris (3) HTN (hypertension): Note that blood pressure slightly low on admission. Lisinopril was discontinued. Tolerating metoprolol Status: Acute Qualifiers: Hypertension type: essential hypertension Qualified Code(s): I10 - Essential (primary) hypertension Additional A&P Information Multiple other medical problems as outlined in his past medical history History of depression. Psychiatric consultation has been obtained Full code Rui for DVT prophylaxis Attestations Medical Necessity Statement*: Needs continued hospitalization for definitive care with coronary artery bypass grafting for his three-vessel coronary disease. Coding Level of Care Code Acute Quarter Doper for Manjit Barney Diagnoses Chest pain R07.9 Chest pain type: unspecified Coronary artery disease I25.118 Coronary Disease-Associated Artery/Lesion type: [place] artery [place] vs. transplanted heart: [place] heart Associated angina: with other forms of angina HTN (hypertension) I10 Hypertension type: essential hypertension
[2021-07-09] MEDS: gabapentin 400 mg Capsule 800 MG PO ×3 (09:24→20:19)
[2021-07-09] MEDS: BuSPIRONE 10 mg Tablet 15 MG PO ×2 (09:24→18:10)
[2021-07-09] MEDS: famotidine 20 mg Tablet PO ×2 (09:25→18:09)
[2021-07-09] MEDS: metoprolol tartrate 25 mg Tablet 12.5 MG PO ×2 (09:27→18:09)
[2021-07-09] MEDS: mupirocin oint 22 gm 1 APPLIC NASAL ×2 (09:38→18:11)
--- NOTE | 2021-07-09 13:59 | P.NPUPN_ITS ---
Subjective NPU Subjective: Interval history: I met with the patient and his . He was worried that his surgery was postponed because of our conversation yesterday. I explained that they had a staffing issue in the OR, which was a great relief to him. We also talked about his tendency to hide his distress to protect others. His wants him to tell her about his sadness and medical issues. He may consider it. No depression, or suicidal or homicidal ideation. Mental Status Exam MSE Comments: I met with the patient in his room, and he was dressed in hospital scrubs and appropriately groomed. He was calm, but became tearful talking about his sister going on hospital. No psychomotor agitation or retardation Speech is at a regular rate and rhythm, normal volume, good articulation, not pressured Alert, oriented to person, place, time, and situation Attention and concentration were intact to exam Memory is adequate for the interview Mood is sad. Affect is pleasant to tearful. Thought process is logical and goal-directed. Thought content: No auditory or visual hallucinations, no suicidal ideation or homicidal ideation. No delusions or paranoia are noted. Insight and judgment are good. Impulse control is good as well. Vitals/I&O/Wt Last Vital Signs Temp 97.6 F 07/10/21 12:00 Pulse 108 H 07/10/21 14:00 Resp 19 H 07/10/21 12:00 BP 127/98 07/10/21 12:00 Pulse Ox 98 07/10/21 12:00 07/10/21 07/10/21 07/10/21 06:59 14:59 22:59 Output Total 300 / 800 Balance -300 / -564 Data NPU : 07/10/21 03:38 07/10/21 03:38 A&P Assessment and plan (1) Unstable angina: Status: Acute (2) Adjustment disorder with mixed disturbance of emotions and conduct: The patient continues to have an adjustment disorder, mostly with a disturbance of emotions, related to stress around his sister being on hospice. Status: Acute (3) HTN (hypertension): Status: Acute (4) Hyperlipidemia LDL goal <70: Status: Acute (5) Coronary artery disease: Status: Acute Involuntary Hold Information 96 Hour Hold: 96 Hour Involuntary Admission: Yes 96 Hour Hold Ending Date: 06/25/21 96 Hour Hold Ending Time: 13:00 Attestations NPU Medical Necessity Statement*: See hospitalist note. Coding Level of Care Code Acute Security Tester for Chg Fwd Diagnoses Unstable angina I20.0 Adjustment disorder with mixed disturbance of emotions and conduct F43.25 HTN (hypertension) I10 Hyperlipidemia LDL goal <70 E78.5 Coronary artery disease I25.10
[2021-07-09] MEDS: ALPRAZolam 0.5 mg Tablet 0.25 MG PO ×2 (14:28→20:19)
[2021-07-09] MEDS: enoxaparin 40 mg/0.4 mL Syringe SUBCUT (14:58)
--- NOTE | 2021-07-09 19:25 | PM.PN ---
Subjective Subjective: Interval history: Couple of episodes of chest pain relieved with the nitro. Patient was awaiting surgery but due to technical problem and nonavailability of surgical suite and staff we may have to transfer the patient to a different facility Medications: Reviewed: Yes Vitals/I&O/Wt Last Vital Signs Temp 98.1 F 07/09/21 18:57 Pulse 87 07/09/21 18:57 Resp 15 07/09/21 18:57 BP 115/71 07/09/21 18:57 Pulse Ox 96 07/09/21 18:57 07/09/21 07/09/21 07/09/21 06:59 14:59 22:59 Intake Total 236 / 236 Output Total 500 / 500 Balance -264 / -264 Physical Exam Narrative: EXAM NARRATIVE: GENERAL: Patient is alert, awake and oriented x3. NECK: No jugular vein distension. HEENT: No cyanosis. No icterus. No pallor. HEART: Regular S1 and S2. No murmur, rub or gallop. LUNGS: Clear to auscultate bilaterally. ABDOMEN: Soft, nontender and nondistended. Positive bowel sounds. No guarding, rebound or tenderness. CENTRAL NERVOUS SYSTEM: Grossly nonfocal. EXTREMITIES: Lower extremities without edema bilaterally. Const: COMMON NORMALS: alert Resp: COMMON NORMALS: clear to auscultation bilaterally AUSCULTATION: clear to auscultation bilaterally Neuro: SENSORIUM/ORIENTATION: Yes alert Data : 07/10/21 03:38 07/10/21 03:38 A&P Assessment and plan (1) Coronary artery disease: Status: Acute Qualifiers: Associated angina: with other forms of angina Coronary Disease-Associated Artery/Lesion type: [place] artery [place] vs. transplanted heart: [place] heart Qualified Code(s): I25.118 - Atherosclerotic heart disease of [place] coronary artery with other forms of angina pectoris (2) HTN (hypertension): Status: Acute Qualifiers: Hypertension type: essential hypertension Qualified Code(s): I10 - Essential (primary) hypertension (3) Hyperlipidemia LDL goal <70: Status: Acute (4) Depression: Status: Acute (5) Unstable angina: Status: Acute Patient has presented with unstable angina. Will preoceed with coronary angiogram in the AM Continue aspirin and plavix. Order echocardiogram Lovenox Trend troponins If chest pain persists can start nitro gtt Thank you for involving us with care of this patient. We will continue to foll Attestations Medical Necessity Statement*: Patient require continuation hospitalization for above defined care. Coding Level of Care Code Established Pt Acute Living Supervisor for Manjit Barney Patient Type Established History Detailed Exam Detailed Medical Decision Making Moderate Complexity Diagnoses Coronary artery disease I25.118 Associated angina: with other forms of angina Coronary Disease-Associated Artery/Lesion type: [place] artery [place] vs. transplanted heart: [place] heart HTN (hypertension) I10 Hypertension type: essential hypertension Hyperlipidemia LDL goal <70 E78.5 Depression F32.A Unstable angina I20.0
[2021-07-09] MEDS: atorvastatin 40 mg Tablet 20 MG PO (20:19)
[2021-07-10 00:07] VITALS: BP 104/77; PULSE 96; RESP 18
[2021-07-10 03:38] VITALS: BP 109/74; PULSE 90; RESP 19; TEMP 36.6; O2SAT 96
[2021-07-10 04:04] LABS: Basophils # 0.1 10^3/uL (0.0-0.1); Basophils % 0.5 %; Eosinophils # 0.2 10^3/uL (0.0-0.8); Eosinophils % 2.5 %; Hematocrit 45.8 % (42.0-52.0); Hemoglobin 15.5 g/dL (11.7-16.6); Lymphocytes # 2.3 10^3/uL (0.8-4.8); Lymphocytes % 24.7 %; Mean Corpuscular HGB Conc 33.8 g/dL (30.0-36.0); Mean Corpuscular Volume 97.4 fl (80-94); Mean Platelet Volume 11.1 fL (7.4-10.4); Neutrophils # 5.86 10^3/uL (1.8-7.7); Nucleated Red Blood Cells % 0 %; Platelet Count 215 10^3/cmm (130-400); Red Cell Distribution Width 12.2 % (12.1-15.1); White Blood Count 9.5 10^3/uL (4.0-10.0)
[2021-07-10 04:26] LABS: Anion Gap 12.4 (5-19); Blood Urea Nitrogen 17 mg/dL (8-23); Calcium 9.7 mg/dL (8.5-10.5); Carbon Dioxide 29 mmol/L (22-29); Chloride 102 mmol/L (98-107); Creatinine Clr Calc Pharmacy 115.0656; Glomerular Filtration Rate 98.6 mL/min (90-130); Glucose 101 mg/dL (65-115); Osmolality Calculated 290 mOsm/kg (285-295); Potassium 4.4 mmol/L (3.5-5.1); Sodium 139 mmol/L (136-145)
[2021-07-10] MEDS: aspirin 81 mg EC Tablet PO (05:48)
[2021-07-10] MEDS: finasteride 5 mg Tablet PO (05:48)
[2021-07-10 08:00] VITALS: BP 109/74; PULSE 107; RESP 18; TEMP 37.1; O2SAT 98
[2021-07-10] MEDS: metoprolol tartrate 25 mg Tablet 12.5 MG PO ×2 (09:03→17:52)
[2021-07-10] MEDS: famotidine 20 mg Tablet PO ×2 (09:03→17:51)
[2021-07-10] MEDS: gabapentin 400 mg Capsule 800 MG PO ×2 (09:03→15:48)
[2021-07-10] MEDS: BuSPIRONE 10 mg Tablet 15 MG PO ×2 (09:04→17:51)
[2021-07-10] MEDS: ALPRAZolam 0.5 mg Tablet 0.25 MG PO ×2 (09:09→13:36)
--- NOTE | 2021-07-10 09:45 | P.PN_ITS ---
Subjective Subjective: Interval history: Discussed with the patient last night he agrees to be transferred to a different hospital. I have spoken to Dr. Hill at [facility] who is going to accept the patient with surgical team for CABG. Patient had one episode of chest pain last evening relieved with meds. Medications: Reviewed: Yes Vitals/I&O/Wt Last Vital Signs Temp 97.9 F 07/10/21 03:38 Pulse 90 07/10/21 03:38 Resp 19 H 07/10/21 03:38 BP 109/74 07/10/21 03:38 Pulse Ox 96 07/10/21 03:38 07/09/21 07/10/21 07/10/21 22:59 06:59 14:59 Output Total 300 / 800 Balance -300 / -564 Physical Exam Narrative: EXAM NARRATIVE: GENERAL: Patient is alert, awake and oriented x3. NECK: No jugular vein distension. HEENT: No cyanosis. No icterus. No pallor. HEART: Regular S1 and S2. No murmur, rub or gallop. LUNGS: Clear to auscultate bilaterally. ABDOMEN: Soft, nontender and nondistended. Positive bowel sounds. No guarding, rebound or tenderness. CENTRAL NERVOUS SYSTEM: Grossly nonfocal. EXTREMITIES: Lower extremities without edema bilaterally. Const: COMMON NORMALS: alert Resp: COMMON NORMALS: clear to auscultation bilaterally AUSCULTATION: clear to auscultation bilaterally Neuro: SENSORIUM/ORIENTATION: Yes alert Data : 07/10/21 03:38 07/10/21 03:38 A&P Assessment and plan (1) Coronary artery disease: Status: Acute (2) HTN (hypertension): Status: Acute (3) Hyperlipidemia LDL goal <70: Status: Acute (4) Depression: Status: Acute (5) Unstable angina: Status: Acute Patient has presented with unstable angina. Will preoceed with coronary angiogram in the AM Continue aspirin and plavix. Order echocardiogram Lovenox Trend troponins If chest pain persists can start nitro gtt Thank you for involving us with care of this patient. We will continue to foll Attestations Medical Necessity Statement*: Patient will be transferred to [facility] to day Coding Level of Care Code Established Pt Acute Senior Branch Manager for Chg Fwd Patient Type Established History Detailed Exam Detailed Medical Decision Making Moderate Complexity Diagnoses Coronary artery disease I25.10 HTN (hypertension) I10 Hyperlipidemia LDL goal <70 E78.5 Depression F32.A Unstable angina I20.0
--- NOTE | 2021-07-10 10:11 | P.TS_ITS ---
Transfer Summary Providers Date of Admission: 07/07/21 10:14 Date of Discharge: 07/10/21 Attending Provider at Admission: Richard Jeffrey MD Attending Provider at Transfer: Richard Jeffrey MD Primary Care Provider: Thomas Moy DO Anticipated Date of Transfer: Anticipated date of transfer: 07/10/21 Receiving Facility & Provider: Receiving Provider: [] Receiving facility: [] Diagnoses at Discharge Discharge Diagnosis (1) Coronary artery disease: Status: Acute Permanent problem details: Patient has multivessel coronary disease including distal left main 80% mid LAD 80% and proximal RCA 70%. He has normal ejection fraction. Due to nonavailability of surgical staff we are going to transfer the patient to [facility]. I have discussed with patient and he agrees with it. . As defined above I have spoken to Dr. Patiño at [facility], heart team at [facility] has accepted the transfer. We will transfer the patient he is stable vital asencio he is not on any drip he has distal left main significant 80% stenosis, mid significant 80% LAD and proximal RCA. Patient has prior stents. He has normal left ventricular ejection fraction. He is stable vital asencio but continues to have angina upon mild exertion. (2) HTN (hypertension): Status: Acute Permanent problem details: Appear to be stable continue current regimen (3) Hyperlipidemia LDL goal <70: Status: Acute Permanent problem details: Continue statin (4) Depression: Status: Acute Permanent problem details: As per medicine team currently is in high spirits. (5) Unstable angina: Status: Acute Reason for Visit Reason for Visit: CHEST PAIN/HEART ATTACK ON 07/05 Hospital Course Hospital Course Fahad is a 60-year-old white male who presented to the hospital with chest discomfort. Troponin did not show any significant delta. Secondary to his previous history of coronary disease and angiogram was performed on July 07 showing significant three-vessel disease. It was thought he would be a candidate for coronary artery bypass grafting. Echocardiogram was done which demonstrated preserved ejection fraction and no significant valvular abnormalities. Cardiothoracic surgery was consulted, with plans to go ahead with coronary artery bypass grafting. Unfortunately staffing issues occurred requiring transfer of patient to an outside hospital, [facility], for planned surgical intervention. He was graciously accepted by Dr. Hill in transfer. Cardiology coordinated this. He was stable at time of transfer. Physical Exam Narrative: EXAM NARRATIVE: General exam no distress Neck supple Cardiovascular regular rate and rhythm Lungs clear Abdomen is soft Extremities no cyanosis clubbing or edema TS Data Data Completed and Pending: Completed Studies During Hospitalization Category Date Time Status MATCHBOOK MAKER request for service Routin e Exams 07/07/21 06:00 Completed XR chest 1V kathleen ble [id number] Stat Exams 07/06/21 08:15 [place] [id number] Routi ne Ultrasound 07/07/21 09:23 Completed CV. echo complete * [id number] Routine Ultrasound 07/06/21 12:26 Completed Pending at discharge Category Date Time Status Immunochemical Fe alexandrea OCB Routine Lab 07/06/21 14:09 Uncollected Leukocyte Reduced RBC Routine Lab 07/07/21 10:35 Results Type and Screen - Cardiac Routine Lab 07/07/21 10:35 Results Labs from last 24 hours 07/10/21 07/10/21 03:38 03:38 WBC 9.5 RBC 4.70 Hgb 15.5 Hct 45.8 MCV 97.4 H MCH 33.0 MCHC 33.8 RDW 12.2 Plt Count 215 MPV 11.1 H Neut % (Auto) 62.0 Lymph % (Auto) 24.7 [place] % (Auto) 10.0 Eos % (Auto) 2.5 Baso % (Auto) 0.5 Neut # (Auto) 5.86 Lymph # (Auto) 2.3 [place] # (Auto) 1.0 H Eos # (Auto) 0.2 Baso # (Auto) 0.1 Nucleated RBC % (a uto) 0 Nucleated RBCs # 0.0 Sodium 139 Potassium 4.4 Chloride 102 Carbon Dioxide 29 Anion Gap 12.4 BUN 17 Creatinine 0.8 GFR Calculation 98.6 Glucose 101 Calculated Osmolal ity 290 Calcium 9.7 Vitals: Last Vital Signs Temp 97.9 F 07/10/21 03:38 Pulse 90 07/10/21 03:38 Resp 19 H 07/10/21 03:38 BP 109/74 07/10/21 03:38 Pulse Ox 96 07/10/21 03:38 TS Medications Medications Home Medications aspirin 81 mg tablet,delayed release 81 mg PO QAM 12/24/19 [History Confirmed 07/06/21] clopidogrel 75 mg tablet 75 mg PO QAM 12/24/19 [History Confirmed 07/06/21] cyclobenzaprine 10 mg tablet 10 mg PO BEDTIME tab 04/13/20 [History Confirmed 07/06/21] metoprolol tartrate 50 mg tablet 25 mg PO QAM tab 12/24/19 [History Confirmed 07/06/21] nitroglycerin 0.4 mg sublingual tablet 0.4 mg SUBLINGUAL Q5M PRN 12/24/19 [History Confirmed 07/06/21] hydrocodone-acetaminophen 1 tab PO Q6H PRN #12 tab 06/20/20 [Rx Confirmed 07/06/21] finasteride 5 mg tablet 5 mg PO QAM 07/07/20 [History Confirmed 07/06/21] famotidine 20 mg PO BID #0 10/06/20 [History Confirmed 07/06/21] lisinopril 5 mg PO QAM #0 10/06/20 [History Confirmed 07/06/21] simvastatin 40 mg PO BEDTIME #0 10/06/20 [History Confirmed 07/06/21] buspirone 15 mg PO BID 07/06/21 [History Confirmed 07/06/21] gabapentin 800 mg PO TID 07/06/21 [History Confirmed 07/06/21] trazodone 50 mg PO BEDTIME 07/06/21 [History Confirmed 07/06/21] Active Medications Acetaminophen (Acetaminophen 325 Mg Tablet) 650 mg PO Q6H PRN PRN Reason: Mild/Mod Pain Or Temp >/= 101 Last Admin: 07/09/21 05:16 Dose: 650 mg Documented by: Hydrocodone Bitart/Acetaminophen (Hydrocodone-Acetaminophen 7.5-325 Mg Tablet) 1 tab PO Q6H PRN PRN Reason: pain Last Admin: 07/07/21 08:57 Dose: 1 tab Documented by: Al Hydrox/Mg Hydrox/Simethicone (Gesy-Oqq-Atnneekbp-Xochitl 30 Ml Udc) 30 ml PO Q15M PRN PRN Reason: INDIGESTION Alprazolam (Alprazolam 0.5 Mg Tablet) 0.25 mg PO Q8H PRN PRN Reason: ANXIETY Last Admin: 07/10/21 09:09 Dose: 0.25 mg Documented by: Aspirin (Aspirin 81 Mg Ec Tablet) 81 mg PO QAM YINKA Last Admin: 07/10/21 05:48 Dose: 81 mg Documented by: Atorvastatin Calcium (Atorvastatin 40 Mg Tablet) 20 mg PO BEDTIME YINKA Last Admin: 07/09/21 20:19 Dose: 20 mg Documented by: Atropine Sulfate (Atropine 1 Mg/Ml Sdv 1 Ml) 0.5 mg IVP PRN PRN PRN Reason: Symptomatic bradycardia Buspirone HCl (Buspirone 10 Mg Tablet) 15 mg PO BID [facility] Last Admin: 07/10/21 09:04 Dose: 15 mg Documented by: Chlorhexidine Gluconate (Chlorhexidine Gluconate 0.12% Btl 473 Ml) 15 ml MUCOUS MEM BID [facility] Last Admin: 07/10/21 09:00 Dose: Not Given Documented by: Chlorhexidine Gluconate (Chlorhexidine Gluconate 4% Btl 118 Ml) 1 applic TOPICAL BID [facility] Last Admin: 07/10/21 09:00 Dose: Not Given Documented by: Enoxaparin Sodium (Enoxaparin 40 Mg/0.4 Ml Syringe) 40 mg SUBCUT Q24H [facility] Last Admin: 07/09/21 14:58 Dose: 40 mg Documented by: Famotidine (Famotidine 20 Mg Tablet) 20 mg PO BID [facility] Last Admin: 07/10/21 09:03 Dose: 20 mg Documented by: Finasteride (Finasteride 5 Mg Tablet) 5 mg PO QAM [facility] Last Admin: 07/10/21 05:48 Dose: 5 mg Documented by: Gabapentin (Gabapentin 400 Mg Capsule) 800 mg PO TID [facility] Last Admin: 07/10/21 09:03 Dose: 800 mg Documented by: Sodium Chloride (Sodium Chloride 0.9%) 1,000 mls @ 75 mls/hr IV .[id number] [facility] Last Admin: 07/07/21 04:40 Dose: 75 mls/hr Documented by: Magnesium Hydroxide (Magnesium Hydroxide 30 Ml Udc) 30 ml PO DAILY PRN PRN Reason: CONSTIPATION Metoprolol Tartrate (Metoprolol Tartrate 25 Mg Tablet) 12.5 mg PO BID [facility] Last Admin: 07/10/21 09:03 Dose: 12.5 mg Documented by: Morphine Sulfate (Morphine 4 Mg/Ml Sdv 1 Ml) 2 mg IVP Q4H PRN PRN Reason: SEVERE PAIN Last Admin: 07/08/21 10:07 Dose: 2 mg Documented by: Mupirocin (Mupirocin Oint 22 Gm) 1 applic NASAL BID [facility] Last Admin: 07/10/21 09:00 Dose: Not Given Documented by: Naloxone HCl (Naloxone 0.4 Mg/Ml Sdv) 0.1 mg IVP Q2M PRN PRN Reason: RESPIRATORY RATE < 8/MIN Nitroglycerin (Nitroglycerin 0.4 Mg Sublingual Tablet) 0.4 mg SUBLINGUAL Q5M PRN PRN Reason: CHEST PAIN Ondansetron HCl (Ondansetron 2 Mg/Ml Sdv 2 Ml) 4 mg IVP Q6H PRN PRN Reason: NAUSEA AND VOMITING Temazepam (Temazepam 15 Mg Capsule) 15 mg PO BEDTIME PRN PRN Reason: INSOMNIA Trazodone HCl (Trazodone 50 Mg Tablet) 50 mg PO BEDTIME [facility] Last Admin: 07/06/21 20:04 Dose: 50 mg Documented by: Discharge Plan Discharge Patient Disposition: Xfer Short-Term Hosp Condition: Stable Prescriptions: No Action finasteride [Proscar] 5 mg tablet 5 mg PO QAM RF: 0 cyclobenzaprine 10 mg tablet 10 mg PO BEDTIME RF: 0 nitroglycerin [Nitrostat] 0.4 mg tablet, sublingual 0.4 mg SUBLINGUAL Q5M PRN (Reason: Chest Pain) RF: 0 clopidogrel [Plavix] 75 mg tablet 75 mg PO QAM RF: 0 metoprolol tartrate 50 mg tablet 25 mg PO QAM RF: 0 aspirin [Adult Low Dose Aspirin] 81 mg tablet,delayed release (DR/EC) 81 mg PO QAM RF: 0 hydrocodone-acetaminophen 7.5-325 mg tablet 1 tab PO Q6H PRN (Reason: pain) Qty: 12 RF: 0 simvastatin 40 mg Tablet 40 mg PO BEDTIME Qty: 0 RF: 0 famotidine 20 mg Tablet 20 mg PO BID Qty: 0 RF: 0 lisinopril 5 mg Tablet 5 mg PO QAM Qty: 0 RF: 0 gabapentin 800 mg Tablet 800 mg PO TID RF: 0 buspirone 10 mg tablet 15 mg PO BID RF: 0 trazodone 50 mg tablet 50 mg PO BEDTIME RF: 0 Discharge Orders: Transfer Out of Facility (Order); Ordered 07/10/21 Ordered By: Richard Jeffrey Transfer Attestations Time Spent in Transfer Care*: greater than 30 min Quality Metrics Clinical Quality Measures: During this hospital stay, did patient experience: None Coding Level of Care Code Acute Damage Adjuster for Chg Fwd Diagnoses Coronary artery disease I25.10 HTN (hypertension) I10 Hyperlipidemia LDL goal <70 E78.5 Depression F32.A Unstable angina I20.0
--- NOTE | 2021-07-10 11:44 | PC.SOCIAL ---
IMM update IMM update with patient. Copy Pg 2 provided. Verbalized an understanding. Initialled, dated, timed, and placed in chart.
[2021-07-10 12:00] VITALS: BP 127/98; PULSE 90; RESP 19; TEMP 36.4; O2SAT 98
--- NOTE | 2021-07-10 12:48 | W.PM.NPUPNS ---
Subjective NPU Subjective: Interval history: I met with the patient. He is getting transferred to another hospital because the surgery has been delayed here. He says that his called to say that his sister will go to hospice today. She has about 10 days to live. Obviously he is in deep grief, so I talked to him for about 20 minutes about his feelings of grief. He can feel the difference between grief and depression. He says he is not depressed and has no suicidal or homicidal ideation. Mental Status Exam MSE Comments: I met with the patient in his room, and he was dressed in hospital scrubs and appropriately groomed. He was calm, but became tearful talking about his sister going on hospital. No psychomotor agitation or retardation Speech is at a regular rate and rhythm, normal volume, good articulation, not pressured Alert, oriented to person, place, time, and situation Attention and concentration were intact to exam Memory is adequate for the interview Mood is sad. Affect is pleasant to tearful. Thought process is logical and goal-directed. Thought content: No auditory or visual hallucinations, no suicidal ideation or homicidal ideation. No delusions or paranoia are noted. Insight and judgment are good. Impulse control is good as well. Vitals/I&O/Wt Last Vital Signs Temp 97.6 F 07/10/21 12:00 Pulse 108 H 07/10/21 14:00 Resp 19 H 07/10/21 12:00 BP 127/98 07/10/21 12:00 Pulse Ox 98 07/10/21 12:00 07/10/21 07/10/21 07/10/21 06:59 14:59 22:59 Output Total 300 / 800 Balance -300 / -564 Data NPU : 07/10/21 03:38 07/10/21 03:38 A&P Assessment and plan (1) Adjustment disorder with mixed disturbance of emotions and conduct: The patient continues to have an adjustment disorder, mostly with a disturbance of emotions, related to stress around his sister being on hospice. Status: Acute (2) Unstable angina: Status: Acute (3) Hyperlipidemia LDL goal <70: Status: Acute (4) Coronary artery disease: Status: Acute (5) HTN (hypertension): Status: Acute Involuntary Hold Information 96 Hour Hold: 96 Hour Involuntary Admission: Yes 96 Hour Hold Ending Date: 06/25/21 96 Hour Hold Ending Time: 13:00 Attestations NPU Medical Necessity Statement*: Per hospitalist Coding Level of Care Code Acute [place] Glass[employer] Replacer for Chg Fwd Diagnoses Adjustment disorder with mixed disturbance of emotions and conduct F43.25 Unstable angina I20.0 Hyperlipidemia LDL goal <70 E78.5 Coronary artery disease I25.10 HTN (hypertension) I10
--- NOTE | 2021-07-10 13:12 | PC.NURSE ---
At 1245 patient xanax, hydrocodone, and to talk with a mental health professional. Dr. Jeffrey was on the unit and we relayed patient's requests to him. Dr. Jeffrey ok with giving next dose of xanax early. I contacted NPU and requested Dr. Lombardo to see patient at his earliest opportunity. Dr. Lombardo came promptly. Dr. Knox also ok with next dose of xanax now.
[2021-07-10] MEDS: HYDROcodone-acetaminophen 7.5-325 mg Tablet 1 TAB PO (13:36)
[2021-07-10] MEDS: enoxaparin 40 mg/0.4 mL Syringe SUBCUT (13:37)
[2021-07-10 14:00] VITALS: PULSE 108
--- NOTE | 2021-07-10 16:15 | PC.NURSE ---
Report called to Judith Thompson RN at [phone]
[2021-07-10 18:30] VITALS: BP 124/72; PULSE 108; RESP 22; O2SAT 94
--- NOTE | 2021-07-13 15:03 | PC.RESP ---
SMOKING CESSATION INFORMATION SENT TO PATIENT.
== END 2021-07-10 18:30 | disposition short-term general hospital (02) | DRG 287 ==
LOC: ER 12:45 → CSU 13:36
PROVIDERS: Internal Medicine Cardiovascular Disease; Thoracic Surgery (Cardiothoracic Vascular Surgery); Admitting Provider Internal Medicine; Emergency Provider Family Medicine; PCP Emergency Medicine Emergency Medical Services; Visit Provider Internal Medicine
PROC: 4A023N7 Measurement of Cardiac Sampling and Pressure, Left Heart, Percutaneous Approach (ICD-10-PCS; principal; 2021-07-07 06:00)
DX: I25.110 Atherosclerotic heart disease of native coronary artery with unstable angina pectoris (principal); Z95.5 Presence of coronary angioplasty implant and graft; N40.0 Benign prostatic hyperplasia without lower urinary tract symptoms; I10 Essential (primary) hypertension; E78.5 Hyperlipidemia, unspecified; F17.210 Nicotine dependence, cigarettes, uncomplicated; F32.A Depression, unspecified; F43.25 Adjustment disorder with mixed disturbance of emotions and conduct; F10.21 Alcohol dependence, in remission; Z79.82 Long term (current) use of aspirin
CPT/HCPCS: 36415; 71045; 80048; 80053; 80076; 81003; 82550; 84439; 84443; 84484; 85025; 86850; 86900; 86920; 93005; 93306; 93452; 93970; 96360; 96372; 99285; C1769; C1887; C1894; G0378; J0171; J1644; J1650; J1815; J2250; J2270; J2370; J3010; J3480; J3490; J7030; J7040; J7050; Q0163; Q9967

== ENCOUNTER 2021-10-30 07:15 | Observation (INO) | payer OTHER, SELFPAY ==
[2021-10-30] VITALS (10 sets, daily range): BP systolic 123–146; BP diastolic 84–111; PULSE 66–109; RESP 14–18; TEMP 36.6–37.4; O2SAT 96–99; BMI 29.8
--- NOTE | 2021-10-30 07:41 | XR_ITS ---
WS: [id number] PORTABLE CHEST HISTORY: shortness of breath COMPARISON: 07/06/2021 Prior median sternotomy. Lungs are hyperinflated. Coarse markings throughout each lung, greatest towards the apices. Similar t o the prior study. No new area of consolidation. Normal vasculature. No pleural effusion or pneumotho rax. Cardiac size: Normal. Mediastinum/Aorta: Mild atherosclerosis aorta. Prior anterior cervical fusion. XR/XR chest 1V portable [id number] IMPRESSION: 1. Chronic emphysema, no pneumonia. 2. Prior CABG. 3. Mild atherosclerosis aorta.
--- NOTE | 2021-10-30 07:45 | ECG_ITS ---
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 Measurements Intervals [place] Rate: 102 P: 74 ND: 136 QRS: 63 QRSD: 82 T: 74 QT: 330 QTc: 431 Interpretive Statements SINUS TACHYCARDIA POSSIBLE LEFT ATRIAL ENLARGEMENT [-0.1mV P-WAVE IN V1/V2] Compared to ECG 07/07/2021 06:50:20 Sinus rhythm no longer present Electronically Signed On 10-30-2021 15:23:26 FOOD CHECKER by Shelly Gunn M.D. [id number]
--- NOTE | 2021-10-30 07:53 | ED_ITS ---
HPI - SOB/Dyspnea General: Chief Complaint: Shortness of Breath/Dyspnea Stated Complaint: SOB Time Seen by Provider: 10/30/21 07:28 History of Present Illness: HPI Narrative: Patient comes in with concerns for shortness of breath. Per the patient's he was started on dexamethasone recently for pain in his right shoulder, and since starting the medication he has been having trouble with sleeping, agitation, and now shortness of breath this morning. History is somewhat limited as the patient gets angry very quickly at even basic questions. He keeps telling me to ask his when I asked him about the quality and duration of his current chest pain. When I asked him why he was getting upset at me asking him questions he states that he gets upset at incompetence. At this point I asked his if the patient is normally like this and she states that not usually. She states that sometimes he can get angry and treat the medical staff poorly, however this is not his usual behavior. Denies fever, vomiting, diarrhea. He does complain of chest pain but again will not elaborate except to say that it is midsternal and started last night. He does have a history of coronary artery disease. His last dose of dexamethasone was yesterday morning. Associated symptoms: Reports chest pain; Deny abdominal pain, fever(s), nausea, palpitations, polyuria or vomiting Review of Systems Const: Denies: fever(s) or body aches Eyes: Denies: change in vision or blurry vision ENMT: Denies: throat pain or odynophagia Card: Reports: chest pain; Denies: palpitations Resp: Reports: dyspnea; Denies: productive cough GI: Denies: abdominal pain, nausea or vomiting : Denies: flank pain or dysuria Musc: Denies: neck pain or back pain Skin/Breast: Denies: rash or pruritus Neuro: Denies: headache(s) or numbness in extremities Psych: Denies: anxiety or change in appetite Endo: Denies: polyuria or excessive sweating [facility] ED PFSH: Medical History (Updated 10/30/21 @ 11:08 by Carl Mckeon MD) BPH (benign prostatic hyperplasia) Coronary artery disease Patient has multivessel coronary disease including distal left main 80% mid LAD 80% and proximal RCA 70%. He has normal ejection fraction. Due to nonavailability of surgical staff we are going to transfer the patient to [facility]. I have discussed with patient and he agrees with it. . As defined above I have spoken to Dr. Patiño at [facility], heart team at [facility] has accepted the transfer. We will transfer the patient he is stable vital asencio he is not on any drip he has distal left main significant 80% stenosis, mid significant 80% LAD and proximal RCA. Patient has prior stents. He has normal left ventricular ejection fraction. He is stable vital asencio but continues to have angina upon mild exertion. HTN (hypertension) Appear to be stable continue current regimen Hyperlipidemia LDL goal <70 Continue statin Surgical History (Updated 10/04/21 @ 14:34 by Patrick Nieto MD) S/P CABG (coronary artery bypass graft) S/P PTCA (percutaneous transluminal coronary angioplasty) Family History Sister Stroke Mother Stroke CAD (coronary artery disease) Social History Alcohol intake: never Physical Exam Const: COMMON NORMALS: no acute distress, patient oriented x3, healthy appearing and alert HENMT: COMMON NORMALS: normocephalic and atraumatic HEAD & SCALP: normocephalic and atraumatic Eye: COMMON NORMALS: Equal, round and reactive pupils present and EOMs intact bilaterally PUPIL: Yes Equal, round and reactive pupils present Neck/C-Spine: COMMON NORMALS: full ROM and supple Resp: COMMON NORMALS: normal respiratory effort (Patient making grunting noises, they disappear when distracted), No retractions and No use of accessory muscles (Mild decrease in air movement) Cardio: COMMON NORMALS: regular rate and regular rhythm RATE: regular rate RHYTHM: regular rhythm GI: COMMON NORMALS: Normal to inspection, nondistended, normoactive bowel sounds present, Soft to palpation and non-tender PALPATION: Yes Soft to palpation Back/Pelvis: COMMON NORMALS: thoracic and lumbar spine normal to inspection and no thoracic nor lumbar tenderness Extremity: COMMON NORMALS: normal to inspection and full ROM Neuro: COMMON NORMALS: patient oriented x3 SENSORIUM/ORIENTATION: Yes alert Psych: COMMON NORMALS: mental status grossly normal; negative for cooperative (Patient not cooperative and angers easily) Skin: COMMON NORMALS: no rashes or lesions noted and no wounds GENERAL SKIN EXAM: no rashes or lesions noted Course Vital Signs: Vital signs: Vital Signs Temperature 98.2 F 10/30/21 07:31 Pulse Rate 101 H 10/30/21 10:53 Respiratory Rate 16 10/30/21 10:53 Blood Pressure 137/111 10/30/21 10:53 Pulse Oximetry 97 10/30/21 10:53 MDM - SOB/Dyspnea Medical Decision Making Patient comes in with concerns for shortness of breath. Per the patient's he was started on dexamethasone recently for pain in his right shoulder, and since starting the medication he has been having trouble with sleeping, agitation, and now shortness of breath this morning. History is somewhat limited as the patient gets angry very quickly at even basic questions. He keeps telling me to ask his when I asked him about the quality and duration of his current chest pain. When I asked him why he was getting upset at me asking him questions he states that he gets upset at incompetence. At this point I asked his if the patient is normally like this and she states that not usually. She states that sometimes he can get angry and treat the medical staff poorly, however this is not his usual behavior. Denies fever, vomiting, diarrhea. He does complain of chest pain but again will not elaborate except to say that it is midsternal and started last night. He does have a history of coronary artery disease. His last dose of dexamethasone was yesterday morning. I suspect the patient's symptoms are secondary to the steroids. Will check labs, x-ray, EKG, CTA chest, and reassess. On reassessment the patient is yelling and cursing at staff. He keeps yelling about the loud music that he is hearing when there is no music. I am concerned that he is acutely psychotic from the steroids. We will give him a dose of Haldol and reassess. Patient has tolerated the Haldol well. He is a little more calm at this point. I discussed the case with the hospitalist, and we will admit for further work-up and treatment. Lab Data : 10/30/21 08:00 10/30/21 08:00 Labs/Radiology: Radiology Impressions Chest X-Ray 10/30/21 07:41 IMPRESSION: 1. Chronic emphysema, no pneumonia. 2. Prior CABG. 3. Mild atherosclerosis aorta. Head CT 10/30/21 09:51 IMPRESSION: 1. No evidence of intracranial hemorrhage or mass effect. 2. Mild small vessel changes with mild parenchymal volume loss. 3. No acute intracranial findings. Laboratory Results WBC 15.9 10^3/uL (4.0-10.0) H 10/30/21 08:00 RBC 5.50 10^6/uL (4.1-5.3) H 10/30/21 08:00 Hgb 16.3 g/dL (11.7-16.6) 10/30/21 08:00 Hct 49.3 % (42.0-52.0) 10/30/21 08:00 MCV 89.6 fl (80-94) 10/30/21 08:00 MCH 29.6 pg (28.0-34.0) 10/30/21 08:00 MCHC 33.1 g/dL (30.0-36.0) 10/30/21 08:00 RDW 14.2 % (12.1-15.1) 10/30/21 08:00 Plt Count 256 10^3/cmm (130-400) 10/30/21 08:00 MPV 10.8 fL (7.4-10.4) H 10/30/21 08:00 Neut % (Auto) 69.5 % 10/30/21 08:00 Lymph % (Auto) 18.4 % 10/30/21 08:00 [place] % (Auto) 9.7 % 10/30/21 08:00 Eos % (Auto) 1.5 % 10/30/21 08:00 Baso % (Auto) 0.3 % 10/30/21 08:00 Neut # (Auto) 11.02 10^3/uL (1.8-7.7) H 10/30/21 08:00 Lymph # (Auto) 2.9 10^3/uL (0.8-4.8) 10/30/21 08:00 [place] # (Auto) 1.5 10^3/uL (0.2-0.9) H 10/30/21 08:00 Eos # (Auto) 0.2 10^3/uL (0.0-0.8) 10/30/21 08:00 Baso # (Auto) 0.1 10^3/uL (0.0-0.1) 10/30/21 08:00 Nucleated RBC % (auto) 0 % 10/30/21 08:00 Nucleated RBCs # 0.0 /100WBC 10/30/21 08:00 Specimen Type Arterial 10/30/21 08:22 Sample Site Radial, right 10/30/21 08:22 ABG pH 7.52 (7.35-7.45) H 10/30/21 08:22 ABG pCO2 30.6 mmHg (35-45) L 10/30/21 08:22 ABG pO2 76.9 mmHg (80.0-100.0) L 10/30/21 08:22 ABG HCO3 25.2 mmol/L (22-26) 10/30/21 08:22 ABG Base Excess 3.3 mmol/L (-2.0-2.0) H 10/30/21 08:22 Jorge Luis Test Pos 10/30/21 08:22 Hematocrit 49.5 % (42-52) 10/30/21 08:22 Hgb O2 Saturation 95.8 % (95-100) 10/30/21 08:22 Carboxyhemoglobin 1.7 %THgb (0.4-20.1) 10/30/21 08:22 Methemoglobin 0.3 % (0.4-1.5) L 10/30/21 08:22 Total Hemoglobin 16.2 g/dL (14-18) 10/30/21 08:22 O2 Delivery Device Room air 10/30/21 08:22 FiO2 21.0 % 10/30/21 08:22 Retail Shift Supervisor ID glc 10/30/21 08:22 Sodium 142 mmol/L (136-145) 10/30/21 08:00 Potassium 3.9 mmol/L (3.5-5.1) 10/30/21 08:00 Chloride 102 mmol/L (98-107) 10/30/21 08:00 Carbon Dioxide 25 mmol/L (22-29) 10/30/21 08:00 Anion Gap 18.9 (5-19) 10/30/21 08:00 BUN 21 mg/dL (8-23) 10/30/21 08:00 Creatinine 0.8 mg/dL (0.7-1.2) 10/30/21 08:00 GFR Calculation 98.3 mL/min (90-130) 10/30/21 08:00 Glucose 103 mg/dL (65-115) 10/30/21 08:00 POC Glucose 117 mg/dL (70-110) H 10/30/21 07:55 Calculated Osmolality 297 mOsm/kg (285-295) H 10/30/21 08:00 Lactate 1.5 mmol/L (0.5-2.2) 10/30/21 08:00 Calcium 9.1 mg/dL (8.5-10.5) 10/30/21 08:00 Magnesium 2.0 mg/dL (1.7-2.3) 10/30/21 08:00 Total Bilirubin 0.5 mg/dL (0.15-1.2) 10/30/21 08:00 AST 14 U/L (0-40) 10/30/21 08:00 ALT 25 U/L (0-41) 10/30/21 08:00 Alkaline Phosphatase 81 IU/L (40-130) 10/30/21 08:00 Troponin T Baseline 7 ng/L (0-15) 10/30/21 08:00 Troponin T 120 Minute 6.64 ng/L (0-15) 10/30/21 09:53 Delta Troponin T -0.36 ABS# (0-10) L 10/30/21 09:53 NT-Pro-B Natriuret Pep 71 pg/mL (0-125) 10/30/21 08:00 Total Protein 6.9 g/dL (6.6-8.7) 10/30/21 08:00 Albumin 4.3 g/dL (3.5-5.2) 10/30/21 08:00 Globulin 2.6 g/dL (1.3-4.6) 10/30/21 08:00 Coronavirus 229E (PCR) Not detected (NOT DETECT) 10/30/21 08:36 SARS-CoV-2 (PCR) Not detected (NOT DETECT) 10/30/21 08:36 EKG Data EKG done at 7:58 AM shows sinus tachycardia with a rate of 102 bpm, no ST segment elevation, normal axis: EKG interpretation time: 07:59 Discharge Plan Discharge Patient Disposition: Admitted As Inpatient Clinical Impression: Acute psychosis Condition: Stable Coding Level of Care Code ED Branch Specialist for Chg Fwd Exam Comprehensive
[2021-10-30 08:03] LABS: Glucose Point of Care 117 mg/dL (70-110)
[2021-10-30 08:05] LABS: Basophils # 0.1 10^3/uL (0.0-0.1); Basophils % 0.3 %; Eosinophils # 0.2 10^3/uL (0.0-0.8); Eosinophils % 1.5 %; Hematocrit 49.3 % (42.0-52.0); Hemoglobin 16.3 g/dL (11.7-16.6); Lymphocytes # 2.9 10^3/uL (0.8-4.8); Lymphocytes % 18.4 %; Mean Corpuscular HGB Conc 33.1 g/dL (30.0-36.0); Mean Corpuscular Hemoglobin 29.6 pg (28.0-34.0); Mean Corpuscular Volume 89.6 fl (80-94); Mean Platelet Volume 10.8 fL (7.4-10.4); Monocytes # 1.5 10^3/uL (0.2-0.9); Monocytes % 9.7 %; Neutrophils # 11.02 10^3/uL (1.8-7.7); Neutrophils % 69.5 %; Nucleated Red Blood Cells % 0 %; Platelet Count 256 10^3/cmm (130-400); Red Cell Distribution Width 14.2 % (12.1-15.1); White Blood Count 15.9 10^3/uL (4.0-10.0)
[2021-10-30 08:29] LABS: Lactate (Lactic Acid level) 1.5 mmol/L (0.5-2.2)
[2021-10-30 08:30] LABS: Troponin(5th) Baseline 7 ng/L (0-15)
[2021-10-30 08:31] LABS: ABG PCO2 30.6 mmHg (35-45); ABG PH Result 7.52 (7.35-7.45); Arterial Blood Gas Hematocrit 49.5 % (42-52); Base Excess ABG 3.3 mmol/L (-2.0-2.0); Blood Gas Allen Test Pos; Blood Gas Operator Identificat glc; Blood Gas Sample Site Radial, right; Blood Gas Sample Type Arterial; Carboxyhemoglobin 1.7 %THgb (0.4-20.1); HCO3 ABG 25.2 mmol/L (22-26); HGB O2 Sat 95.8 % (95-100); Methemoglobin 0.3 % (0.4-1.5); Oxygen Device ROOM AIR; PO2 ABG 76.9 mmHg (80.0-100.0); Total Hemoglobin 16.2 g/dL (14-18)
[2021-10-30 08:39] LABS: Alanine Aminotransferase 25 U/L (0-41); Albumin Level 4.3 g/dL (3.5-5.2); Alkaline Phosphatase 81 IU/L (40-130); Anion Gap 18.9 (5-19); Aspartate Amino Transferase 14 U/L (0-40); Blood Urea Nitrogen 21 mg/dL (8-23); Calcium 9.1 mg/dL (8.5-10.5); Carbon Dioxide 25 mmol/L (22-29); Chloride 102 mmol/L (98-107); Globulin 2.6 g/dL (1.3-4.6); Glomerular Filtration Rate 98.3 mL/min (90-130); Glucose 103 mg/dL (65-115); NT Pro B Type Natriuretic Pept 71 pg/mL (0-125); Osmolality Calculated 297 mOsm/kg (285-295); Potassium 3.9 mmol/L (3.5-5.1); Sodium 142 mmol/L (136-145); Total Bilirubin 0.5 mg/dL (0.15-1.2); Total Protein 6.9 g/dL (6.6-8.7)
--- NOTE | 2021-10-30 08:42 | PC.NURSE ---
SENT TO CAR FOR COVID TESTING. STATES THAT WATCH HIM. HE CAN GET REALLY BAD. NURSE NOTIFIED PROVIDER AND CHARGE.
--- NOTE | 2021-10-30 09:32 | PC.PHAR ---
pt states he takes care of his own medications-medications entered are [facility] and what the pt states he takes
--- NOTE | 2021-10-30 09:35 | PC.NURSE ---
NURSE ANSWERED PATIENT CALL LIGHT. PATIENT VERBALLY AGGRESSIVE TOWARDS NURSE AND USING INAPPROPRIATE LANGUAGE. PATIENT STATES THAT YOU DON'T KNOW WHAT IS GOING ON WITH ME. AND THAT YOU ARE NOT CARING FOR ME. NURSE EDUCATED PATIENT THAT THIS NURSE HAS BEEN WAITING ON LAB RESULTS THAT PHYSICIAN HAS ORDERED. PATIENT CONTINUES TO BE VERBALLY AGGRESSIVE TOWARDS NURSE AND OTHER STAFF. PROVIDER NOTIFIED AND HALDOL ORDERED. SECURITY PRESENT OUTSIDE OF PATIENT ROOM.
[2021-10-30] MEDS: haloperidol inj 5 mg/mL INJ 1 mL IVP (09:46)
--- NOTE | 2021-10-30 09:51 | CT_ITS ---
WS: [id number] CT HEAD TECHNIQUE: Noncontrast CT of the head obtained from the skullbase to the vertex. CLINICAL INFORMATION: headache COMPARISON: 08 02,019 DLP: 1014.[address] scans at [facility] use at least one of these dose optimization techniques: automated e xposure control; mA and/or kV adjustment per patient size (includes targeted exams where dose is matc hed to clinical indication); or iterative reconstruction. FINDINGS: No evidence of intracranial hemorrhage or mass effect. Ventricular system and basal cisterns are contreras nt. Mild small vessel changes with mild parenchymal volume loss. No extra-axial fluid collections. No evidence of mass or mass effect. Normal joseph-white differentiation. Paranasal sinuses and mastoid air cells are well aerated. .Normal visualized soft tissues. CT/CT head wo con* [id number] IMPRESSION: 1. No evidence of intracranial hemorrhage or mass effect. 2. Mild small vessel changes with mild parenchymal volume loss. 3. No acute intracranial findings.
[2021-10-30 10:33] LABS: Troponin 5 2HR 6.64 ng/L (0-15)
[2021-10-30 10:44] LABS: Troponin 5 2HR Delta -0.36 ABS# (0-10)
[2021-10-30 11:00] LABS: Adenovirus Not Detected (NOT DETECT); Chlamydia Pneumoniae Not Detected (NOT DETECT); Coronavirus 229E,HKU1,NL63,OC4 Not Detected (NOT DETECT); Human Metapneumovirus Not Detected (NOT DETECT); Human Rhinovirus/Enterovirus Not Detected (NOT DETECT); Influenza A Not Detected (NOT DETECT); Influenza A H1 Not Detected (NOT DETECT); Influenza A H1-2009 Not Detected (NOT DETECT); Influenza A H3 Not Detected (NOT DETECT); Influenza B Not Detected (NOT DETECT); Mycoplasma Pneumoniae Not Detected (NOT DETECT); Parainfluenza Virus Type 1 Not Detected (NOT DETECT); Parainfluenza Virus Type 2 Not Detected (NOT DETECT); Parainfluenza Virus Type 3 Not Detected (NOT DETECT); Parainfluenza Virus Type 4 Not Detected (NOT DETECT); Respiratory Syncytial Virus A Not Detected (NOT DETECT); Respiratory Syncytial Virus B Not Detected (NOT DETECT); SARS-COV-2 Not Detected (NOT DETECT)
[2021-10-30 11:36] LABS: Add Urine Microscopic? NO; Charge for UA Resulting for Rev
[2021-10-30 11:53] LABS: Bilirubin Urine Neg (Negative); Blood Urine Neg (Negative); Glucose Urine UA Norm (Normal); Ketones Urine 1+ (Negative); Leukocyte Esterase Urine Negative (Negative); Nitrate Urine Negative (Negative); Protein Urine Neg (Negative); Specific Gravity, Urine 1.015 (1.005-1.030); Urine Appearance Clear (CLEAR); Urine Color Dark Yellow (Yellow); Urobilinogen Urine Neg (Negative); pH Urine 7 (5-7)
--- NOTE | 2021-10-30 15:05 | P.HP_ITS ---
Providers/Chief Complaint Admitting Physician: Valdemar Holly Primary Care Provider: Thomas Moy DO Chief Complaint: SOB History of Present Illness 61-year-old gentleman with CAD, history of chronic neck pain, neck surgery, recently with return of the neck pain was started on dexamethasone, since then has experienced insomnia, confusion, states he reported having visions of being in a bad neighborhood . Telling her he does not feel like himself like somebody hijacked his mind . Today was reporting shortness of breath, was tachypneic, very anxious, with symptoms of a possible panic attack. Some report of chest pain, but would not elaborate for ER physician. Denies chest pain when I asked him. Very irritable, not forthcoming with providing history. Tells me he needs to get out of here because this is a bad place, states he has not eaten or drank anything, states he has been sitting in his field, and that for safety of himself and others he better go home. His states that he unfortunately frequently does not disclose his concerns. Reports history of behavioral issues in the past and admission to neuropsychiatric unit, episodes of agitation, including waving a phone around and hitting it against a window while admitted on medical floor, another time getting an argument while being assessed in ER, then waving a traffic cone at the male nurse trying to assess/help him. Police had to be involved in the past. Prior episode of agitation occurred after taking some benzodiazepine medications which were not his. states he otherwise is a reasonable intelligent man. States they have been going through some personal troubles as well, with her having to work extra shifts, and being unable to spend as much time at home, and is not sure if that has contributed to stress. They both feel that given the timing and recent initiation of the dexamethasone that his current symptoms are related to the medication. He states that his problem is in the right side of his neck, not the shoulder. He denies fever or chills. Denies any redness or swelling in the neck or the shoulder. States he is fine, and stops providing further information. Initially agreed for himself to be examined, but after auscultation again says that he just should go home, that he has not drink any water, and even though pointing out that he has water right at his bedside, states that he gets yelled at anytime he sits up in bed. Discussing with him concerns of alteration of mental status and behavior we discussed him staying for further observation and assessment. We would reassess again tomorrow whether his symptoms are better after discontinuation of the medication. He states okay, but I do not believe you , turns his back and plugs his ear with his thumb ending the visit. Review of Systems General: Reports: Other (Limited due to minimal cooperation) Narrative: Some obtained from his Const: Denies: fever(s), chills, body aches or malaise Card: Denies: chest pain Resp: Denies: dyspnea, productive cough or change in phlegm color GI: Denies: nausea, vomiting or diarrhea : Reports: difficulty urinating (subjective) Musc: Reports: neck pain; Denies: back pain, joint swelling, joint redness or joint warmth Neuro: Reports: confusion; Denies: headache(s) Psych: Reports: anxiety, mood swings, sleeping less and irritability Medications/Allergies Home Medications Medication Instructions Recorded Confirmed Last Taken Type aspirin 81 mg tablet,delayed 81 mg PO QAM 12/24/19 10/30/21 07/06/21 07:00 History release (Adult Low Dose Aspirin) cyclobenzaprine 10 mg tablet 10 mg PO TID PRN tab 12/24/19 10/30/21 07/05/21 History nitroglycerin 0.4 mg sublingual 0.4 mg SUBLINGUAL Q5M PRN 12/24/19 10/30/21 Unknown History tablet (Nitrostat) hydrocodone 7.5 mg-acetaminophen 1 tab PO Q6H PRN #12 tab 06/20/20 10/30/21 10/01/20 Rx 325 mg tablet finasteride 5 mg tablet (Proscar) 5 mg PO QAM 07/07/20 10/30/21 07/06/21 07:00 History famotidine 20 mg tablet 20 mg PO BID #0 10/06/20 10/30/21 07/06/21 07:00 History buspirone 10 mg tablet 15 mg PO BID 07/06/21 10/30/21 07/06/21 07:00 History gabapentin 800 mg tablet 800 mg PO TID 07/06/21 10/30/21 07/06/21 07:00 History trazodone 50 mg tablet 50 mg PO BEDTIME 07/06/21 10/30/21 07/05/21 History clopidogrel 75 mg tablet (Plavix) 75 mg PO QAM #90 tab 09/30/21 10/30/21 Unknown Rx metoprolol tartrate 50 mg tablet 75 mg PO BID #270 tab 09/30/21 10/30/21 Unknown Rx simvastatin 40 mg tablet 40 mg PO BEDTIME #90 tab 09/30/21 10/30/21 Unknown Rx dexamethasone 2 mg tablet See Rx Instructions .ROUTE .COMPLEX 10/30/21 10/30/21 Unknown History lidocaine 5 % topical cream 1 applic TOPICAL BID PRN 10/30/21 10/30/21 Unknown History lisinopril 10 mg tablet 5 mg PO BID 10/30/21 10/30/21 Unknown History naproxen 500 mg tablet 500 mg PO BID PRN 10/30/21 10/30/21 Unknown History nicotine 21 mg/24 hr daily 1 patch TRANSDERMAL DAILY 10/30/21 10/30/21 Unknown History transdermal patch Allergies Allergy/AdvReac Type Severity Reaction Status Date / Time tramadol [From Ultram] Allergy Severe Seizures Verified 10/30/21 07:31 celecoxib [From Celebrex] Allergy Mild Chronic Verified 10/30/21 07:31 Diarrhea ibuprofen AdvReac Mild Taking Verified 10/30/21 07:31 Plavix mint Allergy Unknown Uncoded 10/30/21 07:31 PFSH Acute PFSH: Medical History (Updated 10/30/21 @ 17:33 by Valdemar Holly MD) Adjustment disorder with mixed disturbance of emotions and conduct BPH (benign prostatic hyperplasia) Coronary artery disease Patient has multivessel coronary disease including distal left main 80% mid LAD 80% and proximal RCA 70%. He has normal ejection fraction. Due to nonavailability of surgical staff we are going to transfer the patient to [facility]. I have discussed with patient and he agrees with it. . As defined above I have spoken to Dr. Patiño at [facility], heart team at [facility] has accepted the transfer. We will transfer the patient he is stable vital asencio he is not on any drip he has distal left main significant 80% stenosis, mid significant 80% LAD and proximal RCA. Patient has prior stents. He has normal left ventricular ejection fraction. He is stable vital asencio but continues to have angina upon mild exertion. GERD (gastroesophageal reflux disease) Hernia HTN (hypertension) Appear to be stable continue current regimen Hyperlipidemia LDL goal <70 Continue statin Surgical History H/O neck surgery S/P CABG (coronary artery bypass graft) S/P PTCA (percutaneous transluminal coronary angioplasty) S/P skin and subcutaneous tissue surgery S/P spinal surgery Family History Sister Stroke Mother Stroke CAD (coronary artery disease) Social History Smoking and tobacco status: never smoked Alcohol intake: never Substance/Drug Use: current Substance/Drug use type: Marijuana Other substance/drug use details: Occ marijuana Lives independently: Yes Household members: spouse Marital status: Vitals/I&O/Wt Last Vital Signs Temp 98.2 F 10/30/21 07:31 Pulse 101 H 10/30/21 10:53 Resp 16 10/30/21 10:53 BP 137/111 10/30/21 10:53 Pulse Ox 97 10/30/21 10:53 Weight last 48 hrs Weight 99.79 kg Weight 99.79 kg Physical Exam Narrative: Limited Resp: AUSCULTATION: clear to auscultation bilaterally Cardio: COMMON NORMALS: no JVD, regular rate and No murmurs present (Cardio) GI: COMMON NORMALS: Soft to palpation Extremity: COMMON NORMALS: no pedal edema NARRATIVE EXTREMITY EXAM: No erythema, swelling of R shoulder Psych: ATTITUDE: Yes uncooperative, Yes Guarded attititude/behavior present and Yes hostile ACTIVITY/MOTOR BEHAVIOR: Yes Avoids eye contact (attititude/behavior) SPEECH: Yes loud MOOD & AFFECT: Yes irritable and Yes hostile affect THOUGHT PROCESS: Circumstantial thought process present INSIGHT: questionable JUDGEMENT: questionable Data : 10/30/21 08:00 10/30/21 08:00 A&P Assessment and plan (1) Steroid-induced psychosis: Hold steroid. Received Haldol 5 mg IV push in ER. Continue as needed as it seems to work well. He is calmer, but still very irritable, not cooperative. He is agreeable to stay voluntarily for additional assessment. One-to-one sitter. Continue other home medications. History of intermittent behavioral outbursts over the years, history of adjustment disorder with mixed disturbance of emotions and conduct. Hopefully continues to improve with just withholding the medication, as he already seems slightly better as per discussion with his . However, in case of lack of improvement with just withholding medication may need additional psychiatric assessment, possibly even admission. Status: Acute (2) Leukocytosis: Possibly due to demargination secondary to steroid. He otherwise does not have fever chills. Is unclear to have symptoms of infection. UA unremarkable. As is chest x-ray. Reports mild intermittent cough. COVID-19 PCR was tested and negative. Recheck blood counts, monitor for changes in symptoms. Very tachypneic on presentation but this appears to have been related to panic a ttack as improved with Haldol, currently saturating 97%, respiratory rate 18 on room air. Status: Acute (3) BPH (benign prostatic hyperplasia): Reports subjectively feeling some difficulty with urination. UA was unremarkable. Bladder scan performed to 180 mL noted in the bladder. At this time continue finasteride. Bladder scan, straight cath as needed. Status: Acute (4) Adjustment disorder with mixed disturbance of emotions and conduct: Status: Acute (5) S/P CABG (coronary artery bypass graft): Status: Acute (6) Coronary artery disease: Status: Acute (7) Chronic neck pain: Status: Acute Attestations Medical Necessity Statement*: Place in observation for assessment management of acute steroid-induced psychosis. Coding Level of Care Code Acute Reliability Technologist for [employer]it [employer]ney Diagnoses Adjustment disorder with mixed disturbance of emotions and conduct F43.25 Steroid-induced psychosis S/P CABG (coronary artery bypass graft) Z95.1 Coronary artery disease I25.10 Chronic neck pain M54.2; G89.29 Leukocytosis D72.829 BPH (benign prostatic hyperplasia) N40.0
[2021-10-30] MEDS: finasteride 5 mg Tablet PO (15:42)
[2021-10-30] MEDS: gabapentin 400 mg Capsule 800 MG PO ×2 (15:42→20:02)
[2021-10-30] MEDS: metoprolol tartrate 25 mg Tablet PO (17:19)
[2021-10-30] MEDS: famotidine 20 mg Tablet PO (17:20)
[2021-10-30] MEDS: BuSPIRONE 10 mg Tablet 15 MG PO (17:20)
[2021-10-30] MEDS: metoprolol tartrate 50 mg Tablet PO (17:20)
[2021-10-30] MEDS: lisinopril 5 mg Tablet PO (17:20)
[2021-10-30] MEDS: atorvastatin 40 mg Tablet 20 MG PO (20:01)
[2021-10-30] MEDS: HYDROcodone-acetaminophen 7.5-325 mg Tablet 1 TAB PO (20:01)
[2021-10-30] MEDS: trazodone 50 mg Tablet PO (20:01)
[2021-10-31] VITALS: BP 103/67; PULSE 75; RESP 18; TEMP 37.2; O2SAT 94
--- NOTE | 2021-10-31 00:24 | PC.NURSE ---
Patient fixated on the need to urinate. States he isn't voiding well because he forgot to take his medicine for 3 days. When questioned, patient admits to voiding after earlier bladder scan and not drinking fluids because he is afraid the doctor will make him have a catheter again. Patient states he will start voiding normally again after taking the 2nd dose of finestride which is due at 0600. I bladder scanned patient to calm him down. Bladder scan revealed 20ml in bladder at this time. Patient was satisfied with that. 1:1 sitter at bedside.
[2021-10-31 04:00] VITALS: BP 110/74; PULSE 82; RESP 18; TEMP 36.8; O2SAT 97
[2021-10-31 05:10] LABS: Basophils % 0.1 %; Eosinophils # 0.2 10^3/uL (0.0-0.8); Eosinophils % 1.5 %; Hematocrit 49.5 % (42.0-52.0); Hemoglobin 15.8 g/dL (11.7-16.6); Lymphocytes # 2.5 10^3/uL (0.8-4.8); Lymphocytes % 17.7 %; Mean Corpuscular HGB Conc 31.9 g/dL (30.0-36.0); Mean Corpuscular Hemoglobin 29.5 pg (28.0-34.0); Mean Corpuscular Volume 92.5 fl (80-94); Mean Platelet Volume 10.6 fL (7.4-10.4); Monocytes # 1.5 10^3/uL (0.2-0.9); Monocytes % 10.6 %; Neutrophils % 69.6 %; Nucleated Red Blood Cells % 0 %; Platelet Count 254 10^3/cmm (130-400); Red Blood Count 5.35 10^6/uL (4.1-5.3); Red Cell Distribution Width 14.3 % (12.1-15.1); White Blood Count 14.1 10^3/uL (4.0-10.0)
[2021-10-31 05:48] LABS: Alanine Aminotransferase 19 U/L (0-41); Albumin Level 4.2 g/dL (3.5-5.2); Alkaline Phosphatase 85 IU/L (40-130); Anion Gap 14.8 (5-19); Aspartate Amino Transferase 12 U/L (0-40); Blood Urea Nitrogen 18 mg/dL (8-23); Calcium 9.3 mg/dL (8.5-10.5); Carbon Dioxide 28 mmol/L (22-29); Chloride 99 mmol/L (98-107); Globulin 2.9 g/dL (1.3-4.6); Glomerular Filtration Rate 98.3 mL/min (90-130); Glucose 94 mg/dL (65-115); Osmolality Calculated 286 mOsm/kg (285-295); Potassium 4.8 mmol/L (3.5-5.1); Sodium 137 mmol/L (136-145); Total Bilirubin 0.6 mg/dL (0.15-1.2); Total Protein 7.1 g/dL (6.6-8.7)
[2021-10-31] MEDS: aspirin 81 mg EC Tablet PO (05:56)
[2021-10-31] MEDS: clopidogrel 75 mg Tablet PO (05:56)
[2021-10-31] MEDS: finasteride 5 mg Tablet PO (05:56)
[2021-10-31 07:28] VITALS: BP 143/85; PULSE 105; RESP 18; TEMP 36.3; O2SAT 98
[2021-10-31] MEDS: nicotine 21 mg Patch 1 PATCH TRANSDERMA (08:29)
[2021-10-31] MEDS: gabapentin 400 mg Capsule 800 MG PO (08:30)
[2021-10-31] MEDS: BuSPIRONE 10 mg Tablet 15 MG PO (08:30)
[2021-10-31] MEDS: lisinopril 5 mg Tablet PO (08:33)
[2021-10-31] MEDS: metoprolol tartrate 50 mg Tablet PO (08:33)
[2021-10-31] MEDS: metoprolol tartrate 25 mg Tablet PO (08:33)
[2021-10-31] MEDS: famotidine 20 mg Tablet PO (08:33)
[2021-10-31 10:26] LABS: D Dimer 0.35 ug/mIFEU (0-0.59)
[2021-10-31 11:07] VITALS: BP 98/71; PULSE 68; RESP 16; TEMP 36.8; O2SAT 96
--- NOTE | 2021-10-31 13:17 | PM.DCS ---
Discharge Providers Date of Admission: 10/30/21 11:09 Date of Discharge: October 31, 2021 Attending Provider at Admission: Valdemar Holly Attending Provider at Discharge: Valdemar Holly Primary Care Provider: Thomas Moy, Diagnoses at Discharge Discharge Diagnosis (1) Steroid-induced psychosis: Status: Acute (2) Leukocytosis: Status: Acute (3) BPH (benign prostatic hyperplasia): Status: Acute (4) Adjustment disorder with mixed disturbance of emotions and conduct: Status: Acute (5) S/P CABG (coronary artery bypass graft): Status: Acute (6) Coronary artery disease: Status: Acute Permanent problem details: Patient has multivessel coronary disease including distal left main 80% mid LAD 80% and proximal RCA 70%. He has normal ejection fraction. Due to nonavailability of surgical staff we are going to transfer the patient to [facility]. I have discussed with patient and he agrees with it. . As defined above I have spoken to Dr. Patiño at [facility], heart team at [facility] has accepted the transfer. We will transfer the patient he is stable vital asencio he is not on any drip he has distal left main significant 80% stenosis, mid significant 80% LAD and proximal RCA. Patient has prior stents. He has normal left ventricular ejection fraction. He is stable vital asencio but continues to have angina upon mild exertion. (7) Chronic neck pain: Status: Acute Reason for Visit Reason for Visit: SOB Brief History: 61-year-old gentleman with CAD, history of chronic neck pain, neck surgery, recently with return of the neck pain was started on dexamethasone, since then has experienced insomnia, confusion, states he reported having visions of being in a bad neighborhood .? Telling her he does not feel like himself like somebody hijacked his mind .? Today was reporting shortness of breath, was tachypneic, very anxious, with symptoms of a possible panic attack.? Some report of chest pain, but would not elaborate for ER physician.? Denies chest pain when I asked him.? Very irritable, not forthcoming with providing history.? Tells me he needs to get out of here because this is a bad place, states he has not eaten or drank anything, states he has been sitting in his field, and that for safety of himself and others he better go home.? His states that he unfortunately frequently does not disclose his concerns.? Reports history of behavioral issues in the past and admission to neuropsychiatric unit, episodes of agitation, including waving a phone around and hitting it against a window while admitted on medical floor, another time getting an argument while being assessed in ER, then waving a traffic cone at the male nurse trying to assess/help him.? Police had to be involved in the past.? Prior episode of agitation occurred after taking some benzodiazepine medications which were not his.? states he otherwise is a reasonable intelligent man.? States they have been going through some personal troubles as well, with her having to work extra shifts, and being unable to spend as much time at home, and is not sure if that has contributed to stress. They both feel that given the timing and recent initiation of the dexamethasone that his current symptoms are related to the medication.? He states that his problem is in the right side of his neck, not the shoulder.? He denies fever or chills.? Denies any redness or swelling in the neck or the shoulder.? States he is fine, and stops providing further information.? Initially agreed for himself to be examined, but after auscultation again says that he just should go home, that he has not drink any water, and even though pointing out that he has water right at his bedside, states that he gets yelled at anytime he sits up in bed.? Discussing with him concerns of alteration of mental status and behavior we discussed him staying for further observation and assessment.? We would reassess again tomorrow whether his symptoms are better after discontinuation of the medication.? He states okay, but I do not believe you , turns his back and plugs his ear with his thumb ending the visit. Hospital Course Hospital Course After discontinuation of dexamethasone, initial dose of haloperidol in ER, was monitored with supportive care, one-to-one observation in the hospital, did not require any further antipsychotic medication. Reported some concerns regarding incomplete voiding, and was assessed several times with bladder scan last night, however, without signs of urinary retention. UA was obtained, without sign of UTI. Today he is doing much better, he is awake alert and lucid, has spoken with his , and she states he is doing significantly better, with psychosis symptoms it appears resolved. Today he is in better spirits. Pleasant, conversant. States he felt something was off, could not tell what. States that because he was not feeling right, last several days also did not take his other regular medications. These were resumed for him in the hospital. Leukocytosis noted during hospitalization suspected due to demargination with steroid, possibly stress related, does not appear to at this time have signs or symptoms of acute infection. Steroid-induced delirium/psychosis was resolved, he will be returning home with his . Dexamethasone is added to his list of adverse reactions. He is asked to discontinue the medication. He will be revisiting with his primary provider regarding chronic neck pain, which was previously surgically treated after follow-up with neurosurgery. He will discuss consideration of repeat referral. Physical Exam Narrative: Sitting up at edge of bed. Const: COMMON NORMALS: no acute distress and patient oriented x3 GENERAL APPEARANCE: cooperative and comfortable HENMT: COMMON NORMALS: oropharynx normal Neck/C-Spine: COMMON NORMALS: no JVD Resp: COMMON NORMALS: normal respiratory effort and clear to auscultation bilaterally AUSCULTATION: clear to auscultation bilaterally Cardio: COMMON NORMALS: no JVD, regular rhythm, S1 normal heart sound present, S2 normal heart sound present and No murmurs present (Cardio) RHYTHM: regular rhythm HEART SOUNDS: S1 normal heart sound present and S2 normal heart sound present GI: COMMON NORMALS: Normal to inspection, nondistended, normoactive bowel sounds present, Soft to palpation and non-tender PALPATION: Yes Soft to palpation Extremity: COMMON NORMALS: no joint enlargement and no pedal edema Neuro: COMMON NORMALS: patient oriented x3 and moves all extremities Skin: COMMON NORMALS: no rashes or lesions noted GENERAL SKIN EXAM: no rashes or lesions noted Discharge Data Studies Completed and Pending Completed Studies During Hospitalization Category Date Time Status CT head wo con* [id number] Stat Cat Scan 10/30/21 09:51 Completed XR chest 1V portable [id number] Urgent Exams 10/30/21 07:41 Completed Pending at discharge Category Date Time Status Complete Blood Count w/Auto AM LABS Lab 11/01/21 04:00 Ordered Complete Blood Count w/Auto AM LABS Lab 11/02/21 04:00 Ordered Comprehensive Metabolic Panel AM LABS Lab 11/01/21 04:00 Ordered Comprehensive Metabolic Panel AM LABS Lab 11/02/21 04:00 Ordered Radiology Impressions Chest X-Ray 10/30/21 07:41 IMPRESSION: 1. Chronic emphysema, no pneumonia. 2. Prior CABG. 3. Mild atherosclerosis aorta. Head CT 10/30/21 09:51 IMPRESSION: 1. No evidence of intracranial hemorrhage or mass effect. 2. Mild small vessel changes with mild parenchymal volume loss. 3. No acute intracranial findings. Laboratory Results WBC 14.1 10^3/uL (4.0-10.0) H 10/31/21 04:30 RBC 5.35 10^6/uL (4.1-5.3) H 10/31/21 04:30 Hgb 15.8 g/dL (11.7-16.6) 10/31/21 04:30 Hct 49.5 % (42.0-52.0) 10/31/21 04:30 MCV 92.5 fl (80-94) 10/31/21 04:30 MCH 29.5 pg (28.0-34.0) 10/31/21 04:30 MCHC 31.9 g/dL (30.0-36.0) 10/31/21 04:30 RDW 14.3 % (12.1-15.1) 10/31/21 04:30 Plt Count 254 10^3/cmm (130-400) 10/31/21 04:30 MPV 10.6 fL (7.4-10.4) H 10/31/21 04:30 Neut % (Auto) 69.6 % 10/31/21 04:30 Lymph % (Auto) 17.7 % 10/31/21 04:30 Bracken % (Auto) 10.6 % 10/31/21 04:30 Eos % (Auto) 1.5 % 10/31/21 04:30 Baso % (Auto) 0.1 % 10/31/21 04:30 Neut # (Auto) 9.80 10^3/uL (1.8-7.7) H 10/31/21 04:30 Lymph # (Auto) 2.5 10^3/uL (0.8-4.8) 10/31/21 04:30 Bracken # (Auto) 1.5 10^3/uL (0.2-0.9) H 10/31/21 04:30 Eos # (Auto) 0.2 10^3/uL (0.0-0.8) 10/31/21 04:30 Baso # (Auto) 0.0 10^3/uL (0.0-0.1) 10/31/21 04:30 Nucleated RBC % (auto) 0 % 10/31/21 04:30 Nucleated RBCs # 0.0 /100WBC 10/31/21 04:30 D-Dimer 0.35 ug/mIFEU (0-0.59) 10/31/21 09:56 Specimen Type Arterial 10/30/21 08:22 Sample Site Radial, right 10/30/21 08:22 ABG pH 7.52 (7.35-7.45) H 10/30/21 08:22 ABG pCO2 30.6 mmHg (35-45) L 10/30/21 08:22 ABG pO2 76.9 mmHg (80.0-100.0) L 10/30/21 08:22 ABG HCO3 25.2 mmol/L (22-26) 10/30/21 08:22 ABG Base Excess 3.3 mmol/L (-2.0-2.0) H 10/30/21 08:22 Jorge Luis Test Pos 10/30/21 08:22 Hematocrit 49.5 % (42-52) 10/30/21 08:22 Hgb O2 Saturation 95.8 % (95-100) 10/30/21 08:22 Carboxyhemoglobin 1.7 %THgb (0.4-20.1) 10/30/21 08:22 Methemoglobin 0.3 % (0.4-1.5) L 10/30/21 08:22 Total Hemoglobin 16.2 g/dL (14-18) 10/30/21 08:22 O2 Delivery Device Room air 10/30/21 08:22 FiO2 21.0 % 10/30/21 08:22 Department Mgr ID glc 10/30/21 08:22 Sodium 137 mmol/L (136-145) 10/31/21 04:30 Potassium 4.8 mmol/L (3.5-5.1) 10/31/21 04:30 Chloride 99 mmol/L (98-107) 10/31/21 04:30 Carbon Dioxide 28 mmol/L (22-29) 10/31/21 04:30 Anion Gap 14.8 (5-19) 10/31/21 04:30 BUN 18 mg/dL (8-23) 10/31/21 04:30 Creatinine 0.8 mg/dL (0.7-1.2) 10/31/21 04:30 GFR Calculation 98.3 mL/min (90-130) 10/31/21 04:30 Glucose 94 mg/dL (65-115) 10/31/21 04:30 POC Glucose 117 mg/dL (70-110) H 10/30/21 07:55 Calculated Osmolality 286 mOsm/kg (285-295) 10/31/21 04:30 Lactate 1.5 mmol/L (0.5-2.2) 10/30/21 08:00 Calcium 9.3 mg/dL (8.5-10.5) 10/31/21 04:30 Magnesium 2.0 mg/dL (1.7-2.3) 10/30/21 08:00 Total Bilirubin 0.6 mg/dL (0.15-1.2) 10/31/21 04:30 AST 12 U/L (0-40) 10/31/21 04:30 ALT 19 U/L (0-41) 10/31/21 04:30 Alkaline Phosphatase 85 IU/L (40-130) 10/31/21 04:30 Troponin T Baseline 7 ng/L (0-15) 10/30/21 08:00 Troponin T 120 Minute 6.64 ng/L (0-15) 10/30/21 09:53 Delta Troponin T -0.36 ABS# (0-10) L 10/30/21 09:53 NT-Pro-B Natriuret Pep 71 pg/mL (0-125) 10/30/21 08:00 Total Protein 7.1 g/dL (6.6-8.7) 10/31/21 04:30 Albumin 4.2 g/dL (3.5-5.2) 10/31/21 04:30 Globulin 2.9 g/dL (1.3-4.6) 10/31/21 04:30 Urine Color Dark yellow (Yellow) 10/30/21 11:27 Urine Appearance Clear (CLEAR) 10/30/21 11:27 Urine pH 7 (5-7) 10/30/21 11:27 Ur Specific [place] 1.015 (1.005-1.030) 10/30/21 11:27 Urine Protein Neg (Negative) 10/30/21 11:27 Urine Glucose (UA) Norm (Normal) 10/30/21 11:27 Urine Ketones 1+ (Negative) H 10/30/21 11:27 Urine Blood Neg (Negative) 10/30/21 11:27 Urine Nitrate Negative (Negative) 10/30/21 11:27 Urine Bilirubin Neg (Negative) 10/30/21 11:27 Urine Urobilinogen Neg mg/dL (Negative) 10/30/21 11:27 Ur Leukocyte Esterase Negative (Negative) 10/30/21 11:27 Coronavirus 229E (PCR) Not detected (NOT DETECT) 10/30/21 08:36 SARS-CoV-2 (PCR) Not detected (NOT DETECT) 10/30/21 08:36 Vitals Last Vital Signs Temp 98.3 F 10/31/21 11:07 Pulse 68 10/31/21 11:07 Resp 16 10/31/21 11:07 BP 98/71 10/31/21 11:07 Pulse Ox 96 10/31/21 11:07 Discharge Plan Discharge Patient Disposition: Home Condition: Stable Prescriptions: Continued finasteride [Proscar] 5 mg tablet 5 mg PO QAM 0RF cyclobenzaprine 10 mg tablet 10 mg PO TID PRN (Reason: Muscle Spasm) 0RF nitroglycerin [Nitrostat] 0.4 mg tablet, sublingual 0.4 mg SUBLINGUAL Q5M PRN (Reason: Chest Pain) 0RF aspirin [Adult Low Dose Aspirin] 81 mg tablet,delayed release (DR/EC) 81 mg PO QAM 0RF clopidogrel [Plavix] 75 mg tablet 75 mg PO QAM Qty: 90 3RF metoprolol tartrate 50 mg tablet 75 mg PO BID Qty: 270 3RF simvastatin 40 mg tablet 40 mg PO BEDTIME Qty: 90 3RF hydrocodone-acetaminophen 7.5-325 mg tablet 1 tab PO Q6H PRN (Reason: pain) Qty: 12 0RF famotidine 20 mg Tablet 20 mg PO BID Qty: 0 0RF gabapentin 800 mg Tablet 800 mg PO TID 0RF buspirone 10 mg tablet 15 mg PO BID 0RF trazodone 50 mg tablet 50 mg PO BEDTIME 0RF lidocaine 5 % Cream 1 applic TOPICAL BID PRN (Reason: Pain) 0RF lisinopril 10 mg Tablet 5 mg PO BID 0RF nicotine 21 mg/24 hr Patch 24 Hour 1 patch TRANSDERMAL DAILY 0RF naproxen 500 mg Tablet 500 mg PO BID PRN (Reason: Pain) 0RF Discontinued dexamethasone 2 mg Tablet See Rx Instructions .ROUTE .COMPLEX 0RF Rx Instructions: 4mg po q6h on days 1 & 2 2mg po q6h on days 3 & 4 2mg po q12h on days 5 & 6 Discharge Orders: Discharge Order (Routine); Ordered 10/31/21 Ordered By: Valdemar Holly Referrals: Thomas Moy DO [Primary Care Provider] - 4-7 days Patient Instructions: Acute Delirium (GEN), Opioid Safety Activity Restrictions/Additional Instructions: Follow-up with your primary doctor regarding chronic neck pain, discussed referral to neurosurgery/orthopedics. Avoid further oral steroids. Discontinue dexamethasone. Discharge Attestations Time Spent in Discharge Care*: greater than 30 min Quality Metrics Clinical Quality Measures [ No reported AMI, CVA or VTE this stay] Coding Level of Care Code Acute Chg FW DC note Diagnoses Steroid-induced psychosis Leukocytosis D72.829 BPH (benign prostatic hyperplasia) N40.0 Adjustment disorder with mixed disturbance of emotions and conduct F43.25 S/P CABG (coronary artery bypass graft) Z95.1 Coronary artery disease I25.10 Chronic neck pain M54.2; G89.29
[2021-10-31 14:11] VITALS: BP 98/71; PULSE 68; RESP 16; TEMP 36.8; O2SAT 96
== END 2021-10-31 14:11 | disposition home or self-care (01) ==
LOC: ER 11:08 → MEDSURG 10-31 09:41
PROVIDERS: Admitting Provider Internal Medicine; Emergency Provider Emergency Medicine; PCP Emergency Medicine Emergency Medical Services; Visit Provider Internal Medicine
DX: F15.959 Other stimulant use, unspecified with stimulant-induced psychotic disorder, unspecified (principal); D72.829 Elevated white blood cell count, unspecified; N40.0 Benign prostatic hyperplasia without lower urinary tract symptoms; F43.25 Adjustment disorder with mixed disturbance of emotions and conduct; Z95.1 Presence of aortocoronary bypass graft; I25.10 Atherosclerotic heart disease of native coronary artery without angina pectoris; M54.2 Cervicalgia; G89.29 Other chronic pain; Z79.52 Long term (current) use of systemic steroids; Z79.82 Long term (current) use of aspirin; E78.5 Hyperlipidemia, unspecified
CPT/HCPCS: 36415; 36416; 36600; 51798; 70450; 71045; 80053; 81003; 82805; 82962; 83605; 83735; 83880; 84484; 85025; 85378; 87635; 93005; 94640; 96374; 99285; G0378; J1630; J7611

== ENCOUNTER 2021-12-01 10:53 | Outpatient (CLI) | payer OTHER, SELFPAY ==
--- NOTE | 2021-12-01 11:01 | MR_ITS ---
WS: [id number] MRI LUMBAR SPINE NONCONTRAST HISTORY: LUMBAR RADICUL BOYD/LUMBAR STENOSIS COMPARISON: 01/25/2014 TECHNIQUE: Sagittal and axial multisequence imaging is submitted. On the sagittal survey there is a central disc protrusion at C5-6 contacting the ventral cervical cor d and slight displacement. Posterior lumbar alignment is normal. Mild disc space narrowing and desiccation at L4-5 and L5-S1. No acute fracture or marrow edema. Prior posterior lumbar fusion at L5-S1. Conus terminates normally at L1. L1-L2: Minimal bulge with no stenosis. L2-L3: Mild ligamentum flavum hypertrophy. No stenosis. L3-L4: Mild ligamentum flavum hypertrophy. No stenosis. L4-L5: Mild disc bulging and osteophytic ridging. Very small RIGHT paracentral disc protrusion. Sligh t contact on the ventral thecal sac and narrowing of the RIGHT subarticular recess. RIGHT ligamentum flavum is hypertrophied. Bilateral moderate facet joint arthritis. Since the prior examination the ce ntral disc protrusion has significantly decreased and there is less contact on the L5 nerve roots. Po sterior large laminectomy defect. Mild stenosis RIGHT subarticular recess and foramen. L5-S1: No stenosis or protrusion. No significant stenosis. MR/MR lumbar spine wo con* [id number] IMPRESSION: 1. Status post posterior lumbar fusion at L5-S1 and large posterior laminectom y defect. 2. Small RIGHT paracentral disc protrusion at L4-5 significantly decreased in size since 01/25/2014. Mild encroachment upon the subarticular recesses, RIGHT g reater than LEFT and mild RIGHT foraminal and subarticular recess stenosis. 3. Central disc protrusion contacting the ventral cervical cord at C5-6. This can be further evaluated by dedicated MRI of the cervical spine.
== END 2021-12-01 10:54 | disposition home or self-care (01) ==
LOC: RAD 10:55
PROVIDERS: PCP Emergency Medicine Emergency Medical Services; Visit Provider Surgery
DX: M54.16 Radiculopathy, lumbar region (principal); M48.061 Spinal stenosis, lumbar region without neurogenic claudication; M51.26 Other intervertebral disc displacement, lumbar region; Z98.1 Arthrodesis status; M50.222 Other cervical disc displacement at C5-C6 level
CPT/HCPCS: 72148

== ENCOUNTER 2021-12-29 13:31 | Emergency (ER) | payer OTHER, SELFPAY ==
[2021-12-29 13:41] VITALS: BP 126/85; PULSE 94; RESP 18; TEMP 36.9; O2SAT 98; BMI 28.5
--- NOTE | 2021-12-29 13:55 | ED_ITS ---
HPI - Extremity Problem General: Chief complaint: Extremity Injury, Upper Stated complaint: Rt thumb splinter in deep Time Seen by Provider: 12/29/21 13:55 Source: patient Mode of arrival: ambulatory Limitations: no limitations History of Present Illness: Patient is a 61-year-old male who presents to ED today for concerns of a possible wooden splinter to his right hand. 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 Patient states he never visualized a wooden splinter entering his hand. He has tried to remove the possible foreign body without success and has never palpated or visualized the wooden splinter. Patient does feel like when he does range of motion of his right thumb he can feel something . Tetanus UTD. Complaint: extremity pain Onset (ago): hour(s) Pain Consistency: constant Location: right and upper extremity Radiation: none Relieving factors: immobilization Exacerbating factors: other (movement of R thumb) Associated symptoms: Reports no associated symptoms; Deny fever(s) Review of Systems Const: Denies: fever(s) or chills Musc: Reports: extremity pain; Denies: extremity swelling, joint pain or joint swelling Neuro: Denies: numbness in extremities or sensory changes PFS ED PFSH: Medical History Adjustment disorder with mixed disturbance of emotions and conduct BPH (benign prostatic hyperplasia) Coronary artery disease Patient has multivessel coronary disease including distal left main 80% mid LAD 80% and proximal RCA 70%. He has normal ejection fraction. Due to nonavailability of surgical staff we are going to transfer the patient to [facility]. I have discussed with patient and he agrees with it. . As defined above I have spoken to Dr. Patiño at [facility], heart team at [facility] has accepted the transfer. We will transfer the patient he is stable vital asencio he is not on any drip he has distal left main significant 80% stenosis, mid significant 80% LAD and proximal RCA. Patient has prior stents. He has normal left ventricular ejection fraction. He is stable vital asencio but continues to have angina upon mild exertion. GERD (gastroesophageal reflux disease) Hernia HTN (hypertension) Appear to be stable continue current regimen Hyperlipidemia LDL goal <70 Continue statin Steroid-induced psychosis Surgical History H/O neck surgery S/P CABG (coronary artery bypass graft) S/P PTCA (percutaneous transluminal coronary angioplasty) S/P skin and subcutaneous tissue surgery S/P spinal surgery Family History Sister Stroke Mother Stroke CAD (coronary artery disease) Social History Smoking and tobacco status: never smoked Alcohol intake: never Lives independently: Yes Household members: spouse Marital status: Physical Exam Const: COMMON NORMALS: no acute distress, average body habitus, patient oriented x3, no limitations, healthy appearing, alert and well nourished Extremity: GENERAL: Yes normal exam except as noted OTHER: pt has some mild pain and swelling on the palmar aspect of R hand at the base of this thumb; there is no redness/drainage; no obvious palpable foreign body appreciated Neuro: COMMON NORMALS: patient oriented x3, moves all extremities, no focal motor deficits and no sensory deficits noted SENSORIUM/ORIENTATION: Yes alert Course Vital Signs: Vital signs: Vital Signs Temperature 98.4 F 12/29/21 13:41 Pulse Rate 94 12/29/21 13:41 Respiratory Rate 18 12/29/21 13:41 Blood Pressure 126/85 12/29/21 13:41 Pulse Oximetry 98 12/29/21 13:41 MDM - Extremity (Nontraumatic) Medical Decision Making Patient is a 61-year-old male here believing there could be some type of foreign body/splinter to the base of his right thumb. Patient states he never visualize anything entering the extremity. He states his and himself tried to dig it out but were unable to ever palpate or visualize any type of foreign body. XR and US do not reveal any foreign body. I cannot palpate anything on exam. Area is not clinically infected. At this time I have hesitancy attempting to remove an object if I cannot confirm its location or presence. 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 Patient states he would like to wait a day or two to see if area improves on its own. He will be given a prescription for oral antibiotics to fill if area begins appearing infected. He has strict return to ED precautions if this occurs otherwise I urged him to follow-up with hand surgery-case management referral has been placed for this. Lab Data Radiology Impressions Hand X-Ray 12/29/21 14:11 IMPRESSION: 1. No radiopaque foreign body identified. 2. Ultrasound would be more helpful to evaluate for foreign body consisting of wood. Soft Tissue Ultrasound 12/29/21 14:39 IMPRESSION: Mild inflammatory changes and edema in the soft tissues at the base of the thumb but no foreign body identified. Discharge Plan Discharge Patient Disposition: Home Clinical Impression: Splinter of right hand Condition: Stable Prescriptions: New cephalexin 500 mg capsule 500 mg PO Q6H 7 Days Qty: 28 0RF No Action finasteride [Proscar] 5 mg tablet 5 mg PO QAM 0RF cyclobenzaprine 10 mg tablet 10 mg PO TID PRN (Reason: Muscle Spasm) 0RF nitroglycerin [Nitrostat] 0.4 mg tablet, sublingual 0.4 mg SUBLINGUAL Q5M PRN (Reason: Chest Pain) 0RF aspirin [Adult Low Dose Aspirin] 81 mg tablet,delayed release (DR/EC) 81 mg PO QAM 0RF clopidogrel [Plavix] 75 mg tablet 75 mg PO QAM Qty: 90 3RF metoprolol tartrate 50 mg tablet 75 mg PO BID Qty: 270 3RF simvastatin 40 mg tablet 40 mg PO BEDTIME Qty: 90 3RF hydrocodone-acetaminophen 7.5-325 mg tablet 1 tab PO Q6H PRN (Reason: pain) Qty: 12 0RF famotidine 20 mg Tablet 20 mg PO BID Qty: 0 0RF gabapentin 800 mg Tablet 800 mg PO TID 0RF buspirone 10 mg tablet 15 mg PO BID 0RF trazodone 50 mg tablet 50 mg PO BEDTIME 0RF lidocaine 5 % Cream 1 applic TOPICAL BID PRN (Reason: Pain) 0RF lisinopril 10 mg Tablet 5 mg PO BID 0RF nicotine 21 mg/24 hr Patch 24 Hour 1 patch TRANSDERMAL DAILY 0RF naproxen 500 mg Tablet 500 mg PO BID PRN (Reason: Pain) 0RF Discharge Orders: Discharge ED (Routine); Ordered 12/29/21 Ordered By: Keeley Mcclure Referrals: Thomas Moy DO [Primary Care Provider] - Activity Restrictions/Additional Instructions: As we discussed we are placing a referral with a hand surgeon for further evaluation. Monitor symptoms closely for signs of infection such as redness, swelling, drainage, or increased pain. May fill antibiotics if these occur. Please seek medical evaluation if symptoms continue to worsen despite antibiotic therapy. Coding Level of Care Code ED Cottrell Blower for Chg Fwd Exam Expanded Problem Focused
--- NOTE | 2021-12-29 14:11 | XR_ITS ---
WS: [id number] RIGHT HAND: 3 VIEW(S) TECHNIQUE: PA, oblique and lateral. HISTORY: possible wooden splinter/base of thumb COMPARISON: None available. No acute fracture or dislocation. No soft tissue or bone abnormality. No foreign body identified at the base of the thumb. XR/XR hand RT min 3V* [id number] IMPRESSION: 1. No radiopaque foreign body identified. 2. Ultrasound would be more helpful to evaluate for foreign body consisting of wood.
--- NOTE | 2021-12-29 14:39 | US_ITS ---
WS: [id number] ULTRASOUND SOFT TISSUES base of RIGHT thumb. HISTORY: R hand; possible wooden fb COMPARISON: None available. TECHNIQUE: 2-D and color Doppler imaging is submitted. No definite foreign bodies noted in the soft tissues at the base of the thumb. There is a moderate am ount of edema and mild inflammatory changes in the soft tissues. US/US soft tissue/extremity [id number] IMPRESSION: Mild inflammatory changes and edema in the soft tissues at the base of the thum b but no foreign body identified.
--- NOTE | 2021-12-30 11:12 | DCPLANNER ---
Addendum entered by Ester Soler 01/05/22 09:55: manager location was notified by the ortho clinic, stating that patient would need to see his primary care physician. manager location attempted to call patient to inform him of this, but was unable to speak with patient or leave a voicemail for patient. Addendum entered by Ester Soler 12/30/21 11:13: Patient has [employer] insurance, family preservation caseworker will send patients information to Judith with [employer] [facility] for the authorization process can be started. Original Note: manager location had message to schedule a follow up appointment for patient with ortho. manager location sent patients information to the front office staff at ortho. Patients information will be printed and reviewed. Clinic will call patient with appointment information.
== END 2021-12-29 15:29 | disposition home or self-care (01) ==
PROVIDERS: Emergency Provider Physician Assistant; PCP Emergency Medicine Emergency Medical Services
DX: S60.351A Superficial foreign body of right thumb, initial encounter (principal); W45.8XXA Other foreign body or object entering through skin, initial encounter
CPT/HCPCS: 73130; 76882; 99282

== ENCOUNTER → 2022-08-31 09:07 | Outpatient (BNVA) | payer OTHER, SELFPAY | PROVIDERS: PCP Emergency Medicine Emergency Medical Services; Visit Provider Anesthesiology Pain Medicine | DX: M51.36 Other intervertebral disc degeneration, lumbar region (principal); M43.16 Spondylolisthesis, lumbar region; M47.816 Spondylosis without myelopathy or radiculopathy, lumbar region; M79.604 Pain in right leg; M79.605 Pain in left leg | CPT/HCPCS: 99205 ==

== ENCOUNTER → 2022-09-27 13:06 | Outpatient (BNVA) | payer OTHER, SELFPAY | PROVIDERS: PCP Emergency Medicine Emergency Medical Services; Visit Provider Anesthesiology Pain Medicine | DX: M47.816 Spondylosis without myelopathy or radiculopathy, lumbar region (principal) | CPT/HCPCS: 64493; 64494; 64495; J3490 ==

== ENCOUNTER → 2022-10-11 13:03 | Outpatient (BNVA) | payer OTHER, SELFPAY | PROVIDERS: PCP Emergency Medicine Emergency Medical Services; Visit Provider Anesthesiology Pain Medicine | DX: M47.816 Spondylosis without myelopathy or radiculopathy, lumbar region (principal) | CPT/HCPCS: 64493; 64494; 64495; J3490 ==

== ENCOUNTER 2022-11-17 16:15 | Emergency (ER) | payer OTHER, SELFPAY ==
[2022-11-17 16:18] VITALS: BP 150/76; PULSE 133; RESP 22; TEMP 37.6; O2SAT 94; BMI 28.6
--- NOTE | 2022-11-17 16:32 | XRR_ITS ---
PROCEDURE INFORMATION: Exam: XR Chest Exam date and time: 11/17/2022 4:38 PM Age: 62 years old Clinical indication: Other: Covid symptoms; Prior surgery; Additional info: Tachycardia, covid symptoms TECHNIQUE: Imaging protocol: Radiologic exam of the chest. Views: 1 view. COMPARISON: CR XR chest 1V portable [id number] 10/30/2021 7:59 AM FINDINGS: Lungs: There is chronic biapical pleural/parenchymal thickening, stable. Lung walker are otherwise aerated and clear. No infiltrates or overt CHF. Pleural spaces: No pleural effusions or pneumothorax. Heart/Mediastinum: Unremarkable. No cardiomegaly. Bones/joints: Evidence of prior median sternotomy and ACDF lower cervical spine. XR/XR chest 1V portable [id number] IMPRESSION: 1. Stable chest. No active disease.
--- NOTE | 2022-11-17 16:35 | ECG_ITS ---
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 Measurements Intervals [place] Rate: 127 P: 48 CA: 124 QRS: 42 QRSD: 84 T: 73 QT: 281 QTc: 409 Interpretive Statements SINUS TACHYCARDIA ABNORMAL RHYTHM ECG Compared to ECG 10/30/2021 07:58:28 No significant changes Electronically Signed On 11-18-2022 23:45:21 COMMERCIAL ACCOUNT EXECUTIVE by Artie Gerard M.D. [id number]
[2022-11-17 17:13] LABS: Basophils % 0.4 %; Eosinophils % 0.1 %; Hematocrit 45.7 % (42.0-52.0); Hemoglobin 15.5 g/dL (11.7-16.6); Lymphocytes # 0.8 10^3/uL (0.8-4.8); Lymphocytes % 9.3 %; Mean Corpuscular HGB Conc 33.9 g/dL (30.0-36.0); Mean Corpuscular Hemoglobin 31.7 pg (28.0-34.0); Mean Corpuscular Volume 93.5 fl (80-94); Mean Platelet Volume 10.9 fL (7.4-10.4); Monocytes # 1.5 10^3/uL (0.2-0.9); Monocytes % 17.7 %; Neutrophils # 5.91 10^3/uL (1.8-7.7); Nucleated Red Blood Cells % 0 %; Platelet Count 198 10^3/cmm (130-400); Red Blood Count 4.89 10^6/uL (4.1-5.3); Red Cell Distribution Width 12.7 % (12.1-15.1); White Blood Count 8.2 10^3/uL (4.0-10.0)
--- NOTE | 2022-11-17 17:19 | ED_ITS ---
HPI - COVID General: Chief Complaint: COVID symptoms Stated Complaint: Coughing\Fever\SOB Time Seen by Provider: 11/17/22 17:08 History of Present Illness: 62-year-old male patient comes in today for complaints of illness for 4 days. Patient reports cough with some chest congestion for the last 4 days. Patient reports some pain with cough. Patient has a history of a sternal ectomy due to coronary bypass which patient relates to being the cause for his chest discomfort. Patient appears unwell but not toxic. Patient appears in mild pain but no acute distress. COVID 19 common symptoms: positive fever(s) and non-productive cough; negative throat pain, nausea, vomiting or diarrhea COVID Results: SARS-CoV-2 Antigen (Rapid) positive (Negative) 11/17/22 17:43 Nasal/Oral Coronavirus 2019 PCR Not detected 10/03/20 07:49 SARS-CoV-2 (PCR) Not detected (NOT DETECT) 10/30/21 08:36 Coronavirus Type 229E (PCR) Not detected (NOT DETECT) 10/30/21 08:36 Review of Systems Const: Reports: fever(s) ENMT: Denies: throat pain Card: Denies: palpitations Resp: Reports: non-productive cough GI: Denies: nausea, vomiting, diarrhea or constipation Musc: Reports: other (Chest wall pain) Skin/Breast: Denies: rash PFSH ED PFSH: Medical History Adjustment disorder with mixed disturbance of emotions and conduct BPH (benign prostatic hyperplasia) Coronary artery disease Patient has multivessel coronary disease including distal left main 80% mid LAD 80% and proximal RCA 70%. He has normal ejection fraction. Due to nonavailability of surgical staff we are going to transfer the patient to [facility]. I have discussed with patient and he agrees with it. . As defined above I have spoken to Dr. Patiño at [facility], heart team at [facility] has accepted the transfer. We will transfer the patient he is stable vital asencio he is not on any drip he has distal left main significant 80% stenosis, mid significant 80% LAD and proximal RCA. Patient has prior stents. He has normal left ventricular ejection fraction. He is stable vital asencio but continues to have angina upon mild exertion. GERD (gastroesophageal reflux disease) Hernia HTN (hypertension) Appear to be stable continue current regimen Hyperlipidemia LDL goal <70 Continue statin Steroid-induced psychosis Surgical History H/O neck surgery S/P CABG (coronary artery bypass graft) S/P PTCA (percutaneous transluminal coronary angioplasty) S/P skin and subcutaneous tissue surgery S/P spinal surgery Family History Sister Stroke Mother Stroke CAD (coronary artery disease) Social History Smoking and tobacco status: former smoker Second hand smoke exposure: No Alcohol intake: never Lives independently: Yes Household members: spouse Marital status: Physical Exam Const: COMMON NORMALS: alert HENMT: COMMON NORMALS: normocephalic and Normal external nose present HEAD & SCALP: normocephalic NOSE: Normal external nose present MOUTH: Normal oral and palatal mucosa present THROAT: posterior oropharynx normal Neck/C-Spine: COMMON NORMALS: full ROM Resp: COMMON NORMALS: normal respiratory effort AUSCULTATION: diminished lung sounds bilateral in the lower lung walker Cardio: COMMON NORMALS: regular rhythm PALPATION: normal PMI RATE: tachycardic RHYTHM: regular rhythm GI: COMMON NORMALS: Soft to palpation and non-tender PALPATION: Yes Soft to palpation Back/Pelvis: COMMON NORMALS: thoracic and lumbar spine normal to inspection Extremity: COMMON NORMALS: no pedal edema Neuro: SENSORIUM/ORIENTATION: Yes alert Skin: COMMON NORMALS: turgor normal GENERAL SKIN EXAM: turgor normal Course Vital Signs: Vital signs: Vital Signs Temperature 99.7 F H 11/17/22 16:18 Pulse Rate 133 H 11/17/22 16:18 Respiratory Rate 22 H 11/17/22 16:18 Blood Pressure 150/76 11/17/22 16:18 Pulse Oximetry 94 11/17/22 16:18 Oxygen Delivery Me thod 11/17/22 16:18 MDM - COVID Medical Decision Making 62-year-old male patient comes in today for complaints of cough with some congestion for the last 4 days. Patient is concerned he may have the flu or COVID-19. On exam patient has some decreased breath sounds in the bases. Pulse rate is elevated in the 130s. Patient is mildly febrile with a temperature of 99.7. Patient has some drainage in the posterior pharynx. Bilateral TMs are clear. Skin is warm and dry with normal turgor. Patient denied any nausea or vomiting. No edema is noted in the extremities. Differential diagnosis includes but not limited to pneumonia, upper respiratory infection, COVID-19, in fluenza, other viral syndrome. Chest x-ray was unremarkable. CBC, CMP noted some increase in monocytes, anion gap of 19, and sodium of 132, and a CRP of 35. COVID-19 test was positive. Patient was given 1 g Rocephin for concern of secondary bacterial infection due to decreased lung sounds. Discussed with patient recommendation for 1 L of IV fluid the patient did not want to do that and wanted to go home to drink increased fluids. I agree with patient's plan. Patient will continue with cefdinir 300 twice a day for 5 more days. Patient was also put on Paxlovid renal dosing therapy, with recommendations to return to the ER for worsening symptoms such as increasing shortness of breath, severe chest pain, or new concerns. Lab Data 11/17/22 16:40 11/17/22 16:40 Radiology Impressions Chest X-Ray 11/17/22 16:32 IMPRESSION: 1. Stable chest. No active disease. Laboratory Results WBC 8.2 10^3/uL (4.0-10.0) 11/17/22 16:40 RBC 4.89 10^6/uL (4.1-5.3) 11/17/22 16:40 Hgb 15.5 g/dL (11.7-16.6) 11/17/22 16:40 Hct 45.7 % (42.0-52.0) 11/17/22 16:40 MCV 93.5 fl (80-94) 11/17/22 16:40 MCH 31.7 pg (28.0-34.0) 11/17/22 16:40 MCHC 33.9 g/dL (30.0-36.0) 11/17/22 16:40 RDW 12.7 % (12.1-15.1) 11/17/22 16:40 Plt Count 198 10^3/cmm (130-400) 11/17/22 16:40 MPV 10.9 fL (7.4-10.4) H 11/17/22 16:40 Neut % (Auto) 72.0 % 11/17/22 16:40 Lymph % (Auto) 9.3 % 11/17/22 16:40 [place] % (Auto) 17.7 % 11/17/22 16:40 Eos % (Auto) 0.1 % 11/17/22 16:40 Baso % (Auto) 0.4 % 11/17/22 16:40 Neut # (Auto) 5.91 10^3/uL (1.8-7.7) 11/17/22 16:40 Lymph # (Auto) 0.8 10^3/uL (0.8-4.8) 11/17/22 16:40 [place]wsley # (Auto) 1.5 10^3/uL (0.2-0.9) H 11/17/22 16:40 Eos # (Auto) 0.0 10^3/uL (0.0-0.8) 11/17/22 16:40 Baso # (Auto) 0.0 10^3/uL (0.0-0.1) 11/17/22 16:40 Nucleated RBC % (auto) 0 % 11/17/22 16:40 Nucleated RBCs # 0.0 /100WBC 11/17/22 16:40 Sodium 132 mmol/L (136-145) L 11/17/22 16:40 Potassium 4.3 mmol/L (3.5-5.1) 11/17/22 16:40 Chloride 92 mmol/L (98-107) L 11/17/22 16:40 Carbon Dioxide 25 mmol/L (22-29) 11/17/22 16:40 Anion Gap 19.3 (5-19) H 11/17/22 16:40 BUN 8 mg/dL (8-23) 11/17/22 16:40 Creatinine 1.0 mg/dL (0.7-1.2) 11/17/22 16:40 GFR Calculation 75.7 mL/min (90-130) L 11/17/22 16:40 Glucose 117 mg/dL (65-115) H 11/17/22 16:40 Calculated Osmolality 273 mOsm/kg (285-295) L 11/17/22 16:40 Lactic Acid 1.8 mmol/L (0.5-2.2) 11/17/22 16:40 Calcium 9.2 mg/dL (8.5-10.5) 11/17/22 16:40 Total Bilirubin 0.3 mg/dL (0.15-1.2) 11/17/22 16:40 AST 22 U/L (0-40) 11/17/22 16:40 ALT 21 U/L (0-41) 11/17/22 16:40 Alkaline Phosphatase 73 U/L (40-130) 11/17/22 16:40 C-Reactive Protein 35.1 mg/L (0.0-4.9) H 11/17/22 16:40 Total Protein 7.5 g/dL (6.6-8.7) 11/17/22 16:40 Albumin 4.4 g/dL (3.5-5.2) 11/17/22 16:40 Globulin 3.1 g/dL (1.3-4.6) 11/17/22 16:40 Procalcitonin 0.06 ng/mL (0-0.5) 11/17/22 16:40 Influenza Type A Ag negative (Negative) 11/17/22 17:43 Influenza Type B Ag negative (Negative) 11/17/22 17:43 SARS-CoV-2 Ag (Rapid) positive (Negative) 11/17/22 17:43 SARS-CoV-2 Antigen (Rapid) positive (Negative) 11/17/22 17:43 Nasal/Oral Coronavirus 2019 PCR Not detected 10/03/20 07:49 SARS-CoV-2 (PCR) Not detected (NOT DETECT) 10/30/21 08:36 Coronavirus Type 229E (PCR) Not detected (NOT DETECT) 10/30/21 08:36 Discharge Plan Discharge Patient Disposition: Home Clinical Impression: Acute lower respiratory infection, Dehydration, COVID-19 Condition: Stable Prescriptions: New hydrocodone-acetaminophen 5-325 mg tablet 1 tab PO Q8H PRN (Reason: pain) Qty: 10 0RF cefdinir 300 mg capsule 300 mg PO BID 5 Days Qty: 10 0RF Paxlovid (EUA) 150-100 mg tablets,dose pack See Rx Instructions .ROUTE .COMPLEX Qty: 20 0RF Rx Instructions: take ONE 150 mg tablet of nirmatrelvir with ONE 100 mg tablet of ritonavir twice daily for 5 days No Action finasteride [Proscar] 5 mg tablet 5 mg PO QAM cyclobenzaprine 10 mg tablet 10 mg PO TID PRN (Reason: Muscle Spasm) nitroglycerin [Nitrostat] 0.4 mg tablet, sublingual 0.4 mg SUBLINGUAL Q5M PRN (Reason: Chest Pain) aspirin [Adult Low Dose Aspirin] 81 mg tablet,delayed release (DR/EC) 81 mg PO QAM clopidogrel [Plavix] 75 mg tablet 75 mg PO QAM Qty: 90 3RF metoprolol tartrate 50 mg tablet 75 mg PO BID Qty: 270 3RF simvastatin 40 mg tablet 40 mg PO BEDTIME Qty: 90 3RF acetaminophen [Tylenol Extra Strength] 500 mg tablet 500 mg PO Q6H PRN hydrocodone-acetaminophen 7.5-325 mg tablet 1 tab PO Q6H PRN (Reason: pain) Qty: 12 0RF famotidine 20 mg Tablet 20 mg PO BID Qty: 0 gabapentin 800 mg Tablet 800 mg PO TID buspirone 10 mg tablet 15 mg PO BID trazodone 50 mg tablet 50 mg PO BEDTIME lidocaine 5 % Cream 1 applic TOPICAL BID PRN (Reason: Pain) lisinopril 10 mg Tablet 5 mg PO BID nicotine 21 mg/24 hr Patch 24 Hour 1 patch TRANSDERMAL DAILY naproxen 500 mg Tablet 500 mg PO BID PRN (Reason: Pain) Discharge Orders: Discharge ED (Routine); Ordered 11/17/22 Ordered By: Franklin Mejia Referrals: Thomas Moy DO [Primary Care Provider] - Discharge Diet: Usual diet Discharge Activity: Increase activity as tolerated Patient Instructions: Acute Bronchitis (ED), Opioid Safety Activity Restrictions/Additional Instructions: Drink plenty of fluids. Drink some water down Gatorade in a one-to-one ratio at least 8 ounces 4 times a day. Take antibiotic as directed. You can use [id number] cough medicine for cough as needed. Use hydrocodone for severe pain or persistent coughing. Use acetaminophen otherwise for control of fever. Follow-up with primary care in 2 to 3 days for recheck. Return to ED for worsening symptoms such as uncontrolled fever, severe chest pain, or shortness of breath. Coding Level of Care Code ED Dental Chairside Assistant for Manjit Barney
[2022-11-17 17:29] LABS: Lactic Sepsis W/Reflex 1.8 mmol/L (0.5-2.2)
[2022-11-17 17:40] LABS: Procalcitonin 0.06 ng/mL (0-0.5)
[2022-11-17 17:51] LABS: Alanine Aminotransferase 21 U/L (0-41); Albumin Level 4.4 g/dL (3.5-5.2); Alkaline Phosphatase 73 U/L (40-130); Anion Gap 19.3 (5-19); Aspartate Amino Transferase 22 U/L (0-40); Blood Urea Nitrogen 8 mg/dL (8-23); C Reactive Protein 35.1 mg/L (0.0-4.9); Calcium 9.2 mg/dL (8.5-10.5); Carbon Dioxide 25 mmol/L (22-29); Chloride 92 mmol/L (98-107); Globulin 3.1 g/dL (1.3-4.6); Glomerular Filtration Rate 75.7 mL/min (90-130); Glucose 117 mg/dL (65-115); Osmolality Calculated 273 mOsm/kg (285-295); Potassium 4.3 mmol/L (3.5-5.1); Sodium 132 mmol/L (136-145); Total Bilirubin 0.3 mg/dL (0.15-1.2); Total Protein 7.5 g/dL (6.6-8.7)
[2022-11-17] MEDS: acetaminophen 500 mg Tablet PO (17:53)
[2022-11-17] MEDS: HYDROcodone-acetaminophen 5-325 mg Tablet 1 TAB PO (17:53)
[2022-11-17 18:18] LABS: Influenza A by IFA negative (Negative); Influenza B by IFA negative (Negative)
[2022-11-17 18:20] LABS: SARS Covid-2 Antigen positive (Negative)
[2022-11-17] MEDS: cefTRIAXone 1,000 MG in water for injection-sterile 2.1 ML 999 MG IM (18:27)
== END 2022-11-17 18:32 | disposition home or self-care (01) ==
PROVIDERS: Emergency Medicine; Emergency Provider Nurse Practitioner Family; PCP Emergency Medicine Emergency Medical Services
DX: U07.1 COVID-19 (principal); J22 Unspecified acute lower respiratory infection; E86.0 Dehydration
CPT/HCPCS: 36415; 71045; 80053; 83605; 84145; 85025; 86140; 87040; 87426; 87804; 93005; 96372; 96374; 99285; J0696

== ENCOUNTER → 2023-04-11 13:13 | Outpatient (BNVA) | payer OTHER, SELFPAY | PROVIDERS: PCP Emergency Medicine Emergency Medical Services; Visit Provider Internal Medicine | DX: I10 Essential (primary) hypertension (principal); R06.09 Other forms of dyspnea; E78.5 Hyperlipidemia, unspecified; Z87.891 Personal history of nicotine dependence | CPT/HCPCS: 99214 ==

== ENCOUNTER 2023-04-21 11:45 | Outpatient (CLI) | payer OTHER, SELFPAY ==
--- NOTE | 2023-04-21 12:15 | USCV_ITS ---
Fahad Chakraborty Age: 62 Gender: M : 1960 Exam Date: 04/21/2023 12:20 Ordering Phys: Moe Cason M.D ([email or web address]) Technologist: Didi Petersen Exam Location: [facility] [place] Indication: CAD, S/P CABG, BP: 152 / 94 HR: 89 Rhythm: Sinus Technical Quality: Adequate MEASUREMENTS (Male / Female) Normal Values 2D ECHO LV Diastolic Diameter PLAX 3.9 cm 4.2 - 5.9 / 3.9 - 5.3 cm LV Systolic Diameter PLAX 2.5 cm IVS Diastolic Thickness 1.0 cm 0.6 - 1.0 / 0.6 - 0.9 cm IVS Systolic Thickness 1.3 cm LVPW Diastolic Thickness 1.0 cm 0.6 - 1.0 / 0.6 - 0.9 cm LVPW Systolic Thickness 1.9 cm LV Ejection Fraction 2D Teich 64.3 % LV Ejection Fraction MOD 2C 63.7 % LV Ejection Fraction 2C AL 65.4 % LA Diameter 2.4 cm LA Width 3.2 cm LA Height 4.7 cm RA Width 2.6 cm RA Height 4.6 cm Aorta at Sinotubular Diameter 3.3 cm IVC Diameter 1.4 cm M-MODE Aortic Annulus Diameter 3.5 cm LA Ao Ratio MM 0.8 MV E Point Septal Separation 0.5 cm DOPPLER AV Peak Velocity 135.0 cm/s LVOT Peak Velocity 134.0 cm/s MV Peak Velocity 101.0 cm/s MV Area PHT 3.7 cm squared Mitral E to A Ratio 0.7 MV E' Velocity 35.5 cm/s Mitral E to MV E' Ratio 7.5 Mitral E to LV E' Lateral Ratio 6.0 Mitral E to LV E' Septal Ratio 9.7 TR Peak Velocity 109.5 cm/s TR Peak Gradient 4.8 mmHg Right Atrial Pressure 5.0 mmHg Pulmonary Artery Systolic Pressu 9.8 mmHg PV Peak Velocity 115.0 cm/s RV Acceleration Time 0.1 s RV Ejection Time 0.3 s RV AcT/ET 0.4 FINDINGS Left Ventricle Left ventricle is normal in size. LV systolic function is normal with EF of 55 to 60%. No regional wall motion abnormalities are seen. Grade 1 diastolic dysfunction Right Ventricle Normal in size and function Right Atrium Normal in size Left Atrium Normal in size Mitral Valve Structurally normal mitral valve. Trace mitral regurgitation. Aortic Valve Grossly normal. No significant stenosis or regurgitation. Tricuspid Valve Trace tricuspid regurgitation. Insufficient TR jet to calculate RVSP Pulmonic Valve Not well visualized Pericardium Normal Aorta Normal in size IVC Appears to be normal CONCLUSIONS LV systolic function is normal with EF of 55 to 60%. Grade 1 diastolic dysfunction Trace mitral regurgitation Trace tricuspid regurgitation Compared to prior echocardiogram from 2020, patient now has grade 1 diastolic dysfunction Moe Cason MD (Electronically Signed) Final Date: 04 May 2023 09:48 S
== END 2023-04-21 11:46 | disposition home or self-care (01) ==
PROVIDERS: PCP Emergency Medicine Emergency Medical Services; Visit Provider Internal Medicine
DX: I08.1 Rheumatic disorders of both mitral and tricuspid valves (principal); R07.9 Chest pain, unspecified; R06.02 Shortness of breath
CPT/HCPCS: 93306

== ENCOUNTER 2023-04-28 08:01 | Outpatient (CLI) | payer OTHER, SELFPAY ==
[2023-04-28 08:18] VITALS: BMI 29.0
--- NOTE | 2023-04-28 08:24 | ECG_ITS ---
[facility] Test Date: 2023-04-28 Pat Name: Fahad Chakraborty Department: Room: Gender: Male Alcoholic Counselor: Adri Plascencia : 1960 Requested By: Moe Cason Order Number: [id number] You MD: Moe Cason M.D. Interpretive Statements NAME OF STUDY: LEXISCAN SESTAMIBI STRESS TEST INDICATION: [Chest Pain] Procedure: At the baseline, the blood pressure was 130/92 mmHg with a heart rate of 69 bpm. The electrocardiogram showed normal sinus rhythm, normal axis with normal ST and T's. The Lexiscan was infused over a period of 20 seconds. A total of 0.4 mg of Lexiscan was infused. The stress phase was continued for a total of 5 minutes. Heart rate was at the end of stress phase was 74 bpm and a blood pressure of 132/95 mmHg. The EKG at the peak infusion revealed normal sinus rhythm with no significant ST-T wave changes. Sestamibi was injected 20 seconds after the Lexiscan infusion. Blood pressure at the end of recovery phase was 140/102 mmHg with a heart rate of 73bpm. Conclusion 1. Normal EKG response to Lexiscan infusion 2. No Lexiscan induced chest pain or cardiac arrhythmia. 3. Normal blood pressure and heart rate response. 4. Sestamibi/sestamibi perfusion scan pending; see separate report. Electronically Signed On 05-18-2023 14:46:32 CDT by Moe Cason M.D. [id number]
--- NOTE | 2023-04-28 08:26 | NMCV_ITS ---
NM angela perf SPECT r/s* [id number] [address] Fahad Age: 62 Gender: M : 1960 Exam Date: 04/28/2023 09:25 Ordering Phys: Moe Cason M.D ([email or web address]) Technologist: JEMMA Garcia Exam Location: [facility] Indications: CHEST PAIN, SHORTNESS OF BREATH STRESS TEST Please see separate stress test report in [facility] for full findings IMAGE PROTOCOL Rest/Stress 1 Lexiscan Day Radiopharmaceutical Dose (mCi) Administration Site Administered by Rest: Tc-99m 10.6 IV Zion Toscano, WAREHOUSE PACKAGING SUPERVISOR Sestamibi Stress:Tc-99m 32.6 IV Zion Toscano, WAREHOUSE PACKAGING SUPERVISOR Sestamibi Rest: 28-Apr-2023 60 Discovery 630 Stress: 28-Apr-2023 30 Discovery 630 0.4mg Lexiscan. Images obtained in supine and prone position. SPECT RESULTS Technical Quality: Excellent Raw Data Analysis: Normal Image Corrections: No attenuation or motion correction applied Summed Stress Score: 5 Summed Rest Score: 1 Summed Difference Score: 4 PERFUSION FINDINGS There is a medium sized, partially reversible perfusion defect noted in the anteroseptal wall. This is consistent with medium sized area of prior infarct with maria del carmen-infarct ischemia in LAD territory. There is a medium sized area of reversible perfusion defect in inferior wall. This is consistent with medium sized area of ischemia in the RCA territory FUNCTIONAL RESULTS (calculated via Gated SPECT) Stress Image LV EF (%): 63 Stress EDV (mL):65 TID: 1.1 Stress ESV (mL):24 FUNCTIONAL FINDINGS: There is normal left ventricular systolic function. IMPRESSIONS 1. Abnormal myocardial perfusion imaging with medium sized area of prior infarct with maria del carmen-infarct ischemia in LAD territory. 2. Medium sized area of ischemia in RCA territory. 3. LV systolic unction is normal. Moe Cason MD (Electronically Signed) Final Date: 28 April 2023 18:01 S
[2023-04-28] MEDS: regadenoson 0.4 Mg/5 ml Syringe IVP (10:44)
[2023-04-28 10:50] VITALS: BP 140/102; PULSE 72
== END 2023-04-28 08:02 | disposition home or self-care (01) ==
LOC: CDL 08:01
PROVIDERS: PCP Emergency Medicine Emergency Medical Services; Visit Provider Internal Medicine
DX: R07.9 Chest pain, unspecified (principal)
CPT/HCPCS: 36415; 78452; 93017; 96375; A9500; J2785

== ENCOUNTER 2023-05-05 09:40 | Outpatient (CLI) | payer OTHER, SELFPAY ==
[2023-05-05 10:29] LABS: Basophils # 0.1 10^3/uL (0.0-0.1); Basophils % 1.1 %; Eosinophils # 0.2 10^3/uL (0.0-0.8); Eosinophils % 2.6 %; Lymphocytes # 2.2 10^3/uL (0.8-4.8); Lymphocytes % 29.4 %; Mean Corpuscular HGB Conc 34.1 g/dL (30-55); Mean Corpuscular Hemoglobin 32.3 pg (27-33); Mean Corpuscular Volume 94.6 fl (82-101); Mean Platelet Volume 11.6 fL (7.4-10.4); Monocytes # 0.8 10^3/uL (0.2-0.9); Monocytes % 11.1 %; Neutrophils # 4.07 10^3/uL (1.8-7.7); Neutrophils % 55.3 %; Nucleated Red Blood Cells % 0 %; Platelet Count 188 10^3/cmm (157-399); Red Blood Count 4.65 10^6/uL (3.85-5.65); Red Cell Distribution Width 12.7 % (12.1-15.1); White Blood Count 7.37 10^3/uL (3.29-11.43)
[2023-05-05 10:42] LABS: INR 0.93 (0.83-1.21); Prothrombin Time (Patient) 12.7 Seconds (12.0-15.1)
[2023-05-05 10:45] LABS: Anion Gap 12.5 (5-19); Blood Urea Nitrogen 10 mg/dL (8-23); Carbon Dioxide 29 mmol/L (22-29); Chloride 103 mmol/L (98-107); Glucose 118 mg/dL (65-115); Osmolality Calculated 290 mOsm/kg (285-295); Potassium 4.5 mmol/L (3.5-5.1); Sodium 140 mmol/L (136-145)
== END 2023-05-05 09:41 | disposition home or self-care (01) ==
PROVIDERS: PCP Emergency Medicine Emergency Medical Services; Visit Provider Internal Medicine
DX: R07.9 Chest pain, unspecified (principal)
CPT/HCPCS: 36415; 80048; 85025; 85610

== ENCOUNTER 2023-05-09 08:56 | Outpatient (CLI) | payer OTHER, SELFPAY ==
[2023-05-09] VITALS (27 sets, daily range): BP systolic 92–152; BP diastolic 54–91; PULSE 64–92; RESP 11–27; TEMP 36.4–36.5; O2SAT 88–97; BMI 30.5
--- NOTE | 2023-05-09 09:00 | XACV_ITS ---
Exam Room: 2 Ht: 180 cm Wt: 99 kg BSA: 2.26 m2 Gender: Male : 1960 Any Known Allergies: Other Exam Priority: Routine Procedure(s): Procedure Description: Diagnostic procedure Procedure Description: PCI procedure Procedure Description: Venous Graft Catheterization Procedure Description: RUIZ Graft Catheterization Procedure Description: Drug Eluting Coronary Stent Procedure Description: PTCA Procedure Description: Miscellaneous Procedure Description: ACT Procedure Description: Coronary Angiography Diagnostic Cath Status: Elective Diagnostic Findings * INDICATION: Chest pain/abnormal stress test. * Left Anterior Descending has mid vessel 60-70% instent restenosis. * Circumflex has proximal vessel 60-70% stenosis. Competetive flow seen from SVG graft. * Right Coronary Artery has proximal 60% stenosis.Comptetive flow is seen from SVG graft. * BYPASS GRAFTS: * SVG to OM is patent. PDA is patent. RUIZ to LAD is atretic and very small caliber.. * Left Main to Left Main: critical 95% stenosis, JOSEPH: 3 flow. * Coronary angiography shows right dominance. PCI Status: Elective PCI Indication: Other Interventional Findings * PROCEDURE DETAIL: As RUIZ to LAD is atretic and very small sized, we decided to perform PCI of left main to LAD and balloon angioplasty of mid LAD in-stent restenosis. Left main artery was engaged with XB 3.5 guide catheter. IV heparin was administered to maintain anticoagulation. 0.014 run-through guidewire was used to cross the stenosis and was placed in the distal vessel. We then advanced intravascular lithotripsy balloon measuring 3.5 x 12 mm and shockwave therapy was performed as stenosis was calcified. Total of 50 pulses were delivered. We then placed 3.5 x 18 mm resolute Husam drug-eluting stent in the left main artery. This was followed with IVUS that showed underexpansion in mid segment of the stent. We postdilated the stent with 3.75 x 8 mm noncompliant balloon at high pressure. We then proceeded with balloon angioplasty of mid LAD in-stent restenosis with 2.75 x 12 mm NC balloon. At this time final angiogram was performed that showed excellent stent expansion, no residual stenosis and JOSEPH-3 flow. Guidewire and guide catheter were removed. 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 * Left Main to Left Main: 95% stenosis treated with a Shockwave 3.5 x 12, MDT NC EUPHORA RX [id number] BALLOON, MDT R HUSAM 3.5X18 ALONSO, MDT NC EUPHORA RX [id number] BALLOON, and MDT NC EUPHORA RX [id number] BALLOON. 0% residual stenosis, JOSEPH: 3 flow. Conclusions 1. Critical left main artery stenosis s/p successful revascularization with 2. intravascular lithotripsy and 3. 1 stent.. 4. Patent SVG to OM, Patent SVG to PDA and atretic RUIZ to LAD. 5. Patient has prior CABG. 6. Left Main to Left Main was treated with a Balloon, Balloon, Drug Eluting Stent, Balloon, and Balloon. Recommendations * Dual antoplatelet therapy with aspirin and Plavix for atleast 1 year. * High intenisty statin therapy. * Outpatient cardiology follow up in 2-4 weeks. Interventional RX Recommendation: PCI w/o planned CABG Diagnostic RX Recommendation: PCI w/o planned CABG Anticoagulation: Heparin Pressures Phase:Rest AO : 104 / 62 ( 79 ) @ 11:08:00 AM 84 / 65 ( 75 ) @ 11:16:00 AM 117 / 68 ( 89 ) @ 11:32:00 AM 107 / 78 ( 91 ) @ 11:35:00 AM 103 / 76 ( 76 ) @ 12:01:00 PM Clinical Evaluation EBL: 5mL-10mL Procedural Details Procedure Consent Obtained. Pre-Procedure Time Out. Identified patient by full name and date of as verbalized by the patient/guarantor. Does the consent match the physician's order: Yes. Accurate & Complete Informed Consent: Yes. Inpatient/Outpatient History & Physical on Chart: Yes. If H&P is completed, is and addenduem needed: No. Visualize and Verify Site with Patient/Guarantor: N/A. Relevant Radiology Images available: Yes. The risks, benefits, and alternatives of sedation and/or procedure were discussed by physician. The patient agrees to continue. Procedure started. [facility] Clinical Fraility Score: 3: Managing Well. Fork Truck Operator Indications: Suspected CAD. Chest Pain Symptom Assessment: Typical Angina Symptoms. Cardiovascular Instability: No. Correct patient, site and procedure confirmed by cath team. PERRLA. Strong, equal hand course developer bilaterally. Lungs clear x 5 lobes. IV Site on Arrival: 18 gauge in the right anticubital. IV Fluids: 0.9% NaCl at KVO. 0 mL infused prior to blood bank laboratory technician. Pre Procedural Pulses: bilateral dorsalis pedis was 2+. Pre Procedural Pulses: bilateral posterior tibial was 2+. Oxygen started at 2liters/min via nasal canula. right groin was prepped with chloroprep then draped in the usual sterile fashion. Physician notified. Baseline sample Acquired. HR: 79 BPM. Patient's spouse in CPRU room #2. Dr[address] Cason will update at the completion of the procedure. Equipment: 6F - Femoral. Cardiac Cath Pack. ACIST Manifold Kit Model BT 2000. Heparinized Saline (2 units/mL), 1000 mL bag. Kit, Micropuncture. Physician arrived. Physician scrubbed in. Immediate Pre-Procedure Time Out. Correct Patient: Yes; Correct Procedure: Yes; Correct Site: Yes; Correct Patient Position: Yes; Correct Supplies: Yes; Dried Flammable Prep: Yes; Blood Products Available: N/A;. Lidocaine 1% infiltrated to the right groin. Arterial access obtained with micropuncture set using ultrasound guidance. A 5 turkmen JL4 catheter in over the standard J wire. Multiple views taken of left coronary artery. Catheter removed over the standard J wire. A 5 turkmen JR4 catheter in over the standard J wire. Cineography of right coronary artery performed. Catheter redirected to the SVG --> OM. SVG's to OM visualized and patent. Catheter redirected to the SVG --> RCA. SVG's to RCA visualized. Catheter redirected to the RCA. Cineography of the RCA performed. Catheter redirected to the RUIZ --> LAD. RUIZ to LAD visualized. Catheter removed over the standard J wire. Dr. Cason reviewing cineography. 6 turkmen XB 3.5 guide catheter was inserted over the standard J wire. Guide catheter out over the standard J wire. Wire inserted through the sheath and advanced. 6 turkmen XB 3.5 guide catheter was inserted over the standard J wire. Guide catheter out over the standard J wire. Sheath upsized to a 6 Fr. A 2nd 6 turkmen XB 3.5 guide catheter was inserted over the standard J wire. ACT drawn. Results out of range high. Will redraw. Runthrough guidewire was advanced through the guide catheter to lesion in the left main. Family updated by Sage Mckeon RN, [facility]. Inflation number : 1 A Shockwave 3.5 x 12 was prepped and advanced across the LMCA , then inflated to 4 ERNA for 0:24 seconds. Inflation number: 2 The Shockwave 3.5 x 12 was reinflated across the LMCA, to 4 ERNA for 0:21 seconds. Inflation number: 3 The Shockwave 3.5 x 12 was reinflated across the LMCA, to 4 ERNA for 0:20 seconds. Inflation number: 4 The Shockwave 3.5 x 12 was reinflated across the LMCA, to 4 ERNA for 0:20 seconds. Inflation number: 5 The Shockwave 3.5 x 12 was reinflated across the LMCA, to 4 ERNA for 0:21 seconds. Shockwave balloon out OTW. Inflation number : 6 A T NIKITA EUPHORA RX [id number] BALLOON was prepped and advanced across the LMCA , then inflated to 14 ERNA for 0:21 seconds. Results checked. Balloon out. Inflation Number : 7 A MDT R HUSAM 3.5X18 ALONSO -Lot Number# [id number] was prepped and advanced across the LMCA. The stent was deployed at 12 ERNA for 0:22 seconds. Exp 2025-01-13. Stent balloon out over wire. Results checked. ACT drawn. Results out of range high. Will redraw. IVUS catheter in OTW. IVUS catheter out OTW. Ringdown and recording performed. Inflation number : 8 A MDT NC EUPHORA RX [id number] BALLOON was prepped and advanced across the LMCA , then inflated to 14 ERNA for 0:17 seconds. Inflation number: 9 The MDT NC EUPHORA RX [id number] BALLOON was reinflated across the LMCA, to 12 ERNA for 0:14 seconds. Balloon out. Results checked. Inflation number : 10 A MDT NC EUPHORA RX [id number] BALLOON was prepped and advanced across the LMCA , then inflated to 10 ERNA for 0:11 seconds. Inflation number: 11 The MDT NC EUPHORA RX [id number] BALLOON was reinflated across the LMCA, to 12 ERNA for 0:15 seconds. Inflation number: 12 The MDT NC EUPHORA RX [id number] BALLOON was reinflated across the LMCA, to 16 ERNA for 0:18 seconds. Balloon out. Results checked. Wire out. Guide catheter out. A Right femoral angiogram was performed to determine safe placement of closure device. Physician scrubbed out. A Suture was successful obtaining hemostatsis at the Right Femoral artery insertion site. Sheath(s) sutured into position with 2-0 silk and sterile 4x4's and Op-site applied over the site. No oozing or signs and symptoms of hematoma noted. Post Procedure: Pulses reassessed and unchanged. PERRLA. Strong, equal hand course developer bilaterally. No VTE prophylaxis required. ACT drawn. Results out of range high. Medication's Wasted: Lidocaine 1% = 2 mL. Medication's Wasted: Other = Versed 1 mg. Medication's Wasted: Other = Fentanyl 50 mcg. Total IV fluids: 340 mL. PCI Indication: CAD (without ischemic symptoms). Post-op diagnosis: Left main stenosis s/p Lithotripsy and PCI. ACT drawn. Results 304 seconds. Therapeutic limits - pre-heparin administration 90-150 seconds and monitoring heparin during a vascular procedure >250 seconds. Complications: none. Estimated blood loss: 5mL-10mL. Responsiveness - Normal response to verbal stimuli; alert and oriented, PERRLA. Airway - Unaffected, no intervention required; spontaneous ventilation. Circulation: W/N/L, pulses unchanged. Nausea/Vomiting: No. Procedure completed. Patient transferred by bed to CPRU. Vital chart was stopped. Access Site Site: Right Femoral artery Sheath Size: 6 Fr Hemostasis Method: Suture Hemostasis Success: Successful Procedure Medications Start: 9:46 AM Stop: 9:46 AM Medication: Versed Amount: 1 mg Route: I.V. Start: 9:46 AM Stop: 9:46 AM Medication: Fentanyl Amount: 50 mcg Route: I.V. Start: 9:57 AM Stop: 9:57 AM Medication: Versed Amount: 1 mg Route: I.V. Start: 10:20 AM Stop: 10:20 AM Medication: 0.9% Saline Amount: ml Route: I.V. bolus Start: 10:27 AM Stop: 10:27 AM Medication: Heparin Amount: 9000 units Route: I.V. Start: 10:50 AM Stop: 10:50 AM Medication: Versed Amount: 1 mg Route: I.V. Start: 11:13 AM Stop: 11:13 AM Medication: Plavix Amount: 600 mg Route: P.O. I, the attending physician, have reviewed and verified all procedure medications. Yes, all medications given per verbal order History/Risk Factors Hypertension: Yes Dyslipidemia: Yes Peripheral Arterial Disease (PAD): No Myocardial Infarction (NV): No Obesity: No Renal Disease: No Tobacco Use: Former Prior Interventions PCI: No CABG: Yes Valve Surgery: No Report Signatures Finalized by Moe Cason MD on 05/18/2023 02:27 PM
[2023-05-09] MEDS: aspirin 325 mg Tablet PO (09:25)
[2023-05-09] MEDS: diphenhydrAMINE 50 mg Capsule PO (09:25)
--- NOTE | 2023-05-09 09:50 | W.PM.OPSUD ---
Surgery/Procedure H&P Update DATE OF PROCEDURE: May 09, 2023 DATE H&P PERFORMED: 04/11/23 H&P UPDATE INFORMATION: I have reviewed H&P completed within last 30 days, I have examined patient prior to procedure and No changes to prior documentation PREOP DIAGNOSIS: Chest pain/Abnormal stress test PRIMARY INDICATION FOR PROCEDURE: Chest pain/Abnormal stress test PLANNED PROCEDURE: Operation Date: 05/09/23 10:00 Proposed Procedures p [facility] [id number],R94.39(Left) - Moe Cason M.D Possible percutaneous coronary intervention PATIENT REASSESSED PRIOR TO SEDATION, WITH NO CHANGE NOTED: Yes PHYSICAL EXAM: alert, oriented x 3, clear to auscultation bilaterally and regular rate & rhythm AIRWAY EVAL/ANESTHESIA PLAN: normal airway, ASA III, Local Anesthesia, Risks, benefits & alternatives of sedation and/or procedure discussed and Patient agrees to continue as planned
--- NOTE | 2023-05-09 12:01 | PC.NURSE ---
CPRU nurse received pt from [facility]. pt alert and oriented but drowsy. pt complains of no pain. right femoral access has sheath sutured in place and connected to pressure bag. no bruising or hematoma noted. pt and family educated on restrictions throughout recovery and will be re-educated while pt is in CPRU. Pt placed on vital monitor and will be monitored per protocol.
[2023-05-09] MEDS: ondansetron 2 mg/ML SDV 2 mL 4 MG IVP (13:34)
[2023-05-09] MEDS: sodium chloride 0.9% 1,000 ML 100 ML IV ×2 (13:35→20:59)
[2023-05-09 14:52] LABS: Partial Thromboplastin Time 52.7 SECONDS (23.9-36.7)
[2023-05-09] MEDS: fentaNYL 50 mcg/mL INJ 2mL IVP (15:04)
[2023-05-09] MEDS: ALPRAZolam 0.5 mg Tablet 0.25 MG PO (15:04)
--- NOTE | 2023-05-09 17:17 | PC.NURSE ---
sheath removal 1535 pm-explained procedure to pt. premedicated w/ fentanyl and xanax as ordered prn. small hematoma noted around the puncture site. manual pressure held for 20 mins. noted oozing after 20 min edmundo. another 15 mins of manual pressure held. small bruising noted around the puntured site. minimal tenderness upon palpation reported by pt. pedal pulses are palpable. leg is warm to touch. instructed pt regarding 6 hr bedrest post sheath removal, limiting movement on his right hip and right leg, to call nurse right away for any increase pain, unusual burning or tingling sensation around the groin. call light provided to pt. instructed pt to call nurse if using his urinal. pt verbalizes understanding.
[2023-05-09] MEDS: BuSPIRONE 10 mg Tablet 15 MG PO (17:36)
--- NOTE | 2023-05-09 17:58 | PC.NURSE ---
pt denies any chest pain or discomfort aside from soreness and tenderness on his groin area. dr chowdhury came by at bedside and talk to pt regarding the procedure. dr chowdhury notified of the bruising and small hematoma dessipated after manual pressure. dr look at the site and felt for it and he said it is soft. will keep monitoring neurovascular.
[2023-05-09] MEDS: atorvastatin 40 mg Tablet 20 MG PO (20:05)
[2023-05-09] MEDS: trazodone 50 mg Tablet PO (20:06)
[2023-05-09] MEDS: temazepam 15 mg Capsule PO (21:10)
[2023-05-10] VITALS: BP 91/68; PULSE 95; RESP 16; TEMP 36.7; O2SAT 95
[2023-05-10 03:52] VITALS: BP 113/81; PULSE 97; RESP 19; TEMP 36.4; O2SAT 94
[2023-05-10] MEDS: acetaminophen 325 mg Tablet 650 MG PO (04:40)
[2023-05-10 05:12] LABS: Basophils % 0.5 %; Eosinophils # 0.2 10^3/uL (0.0-0.8); Eosinophils % 2.4 %; Hematocrit 41.6 % (37-53); Lymphocytes # 1.7 10^3/uL (0.8-4.8); Lymphocytes % 22.1 %; Mean Corpuscular HGB Conc 33.7 g/dL (30-55); Mean Corpuscular Hemoglobin 31.9 pg (27-33); Mean Corpuscular Volume 94.8 fl (82-101); Mean Platelet Volume 11.5 fL (7.4-10.4); Monocytes # 0.8 10^3/uL (0.2-0.9); Monocytes % 10.4 %; Neutrophils # 5.06 10^3/uL (1.8-7.7); Neutrophils % 64.3 %; Nucleated Red Blood Cells % 0 %; Platelet Count 167 10^3/cmm (157-399); Red Blood Count 4.39 10^6/uL (3.85-5.65); Red Cell Distribution Width 12.6 % (12.1-15.1); White Blood Count 7.87 10^3/uL (3.29-11.43)
[2023-05-10] MEDS: aspirin 81 mg EC Tablet PO (05:14)
[2023-05-10 05:24] LABS: Anion Gap 10.6 (5-19); Blood Urea Nitrogen 13 mg/dL (8-23); Calcium 8.7 mg/dL (8.5-10.5); Carbon Dioxide 31 mmol/L (22-29); Chloride 103 mmol/L (98-107); Glomerular Filtration Rate 85.5 mL/min (90-130); Glucose 104 mg/dL (65-115); Osmolality Calculated 290 mOsm/kg (285-295); Potassium 4.6 mmol/L (3.5-5.1); Sodium 140 mmol/L (136-145)
[2023-05-10 06:00] VITALS: PULSE 95
[2023-05-10 07:56] VITALS: BP 80/60; PULSE 98; RESP 20; TEMP 36.6; O2SAT 92
[2023-05-10] MEDS: clopidogrel 75 mg Tablet PO (09:02)
[2023-05-10] MEDS: nicotine 21 mg Patch 1 PATCH TRANSDERMA (09:02)
[2023-05-10] MEDS: BuSPIRONE 10 mg Tablet 15 MG PO (09:02)
--- NOTE | 2023-05-10 09:44 | PC.CHAP ---
Pastoral Care Encounter/Spiritual Assessment Type of Contact [] Declined relief man visit [] Patient/Family/Request visit [] Outpatient visit [] Follow-up visit [] Physician referral [] Code/Alert [x] Routine visit [] Staff referral [] Actively dying [] Patient sleeping [] Family support [] [] Out of room [] Palliative care [] [] Receiving care in room [] Pre-surgical visit [] Trauma [] Long length of stay [] ICU visit [] Other: Relational/Emotional Strength [x] Patient feels connected with others/family/visitors/staff [] Distress [] Loneliness/isolation [] Abandonment Spirituality of Patient [] Person of Tootie [] Attends Rastafari of their Tootie [] Believes in Prayer [] Reads Bible or Pentecostal materials [x] There are Spiritual issues to be addressed Sales Agent Insurance Interventions [] Prayer [] Active listening [] Non-anxious presence [] Spiritual/emotional support [] Crisis/trauma care [] Spiritual counseling [] Bereavement support [] Provided bereavement packet [] Provided Bible/devotional materials [] Provided toy/stuffed animal, coloring book to patient or family member [] Provided Communion [] Anointing/[place]one [] Salvation [x] Completed spiritual assessment [] Other: Impact on Illness or Injury [] Angry [] Fearful [] Anxious [] Often cries [] Exhaustion [] Unable to work [] Unable to attend adventist [] Unable to walk/stand [] Unable to read [] Unable to drive [] Unable to eat/drink [] Unable to sleep [] Unable to be with family [] Patient intubated [] Other: Summary Time spent with patient 5 min
--- NOTE | 2023-05-10 10:05 | P.DS_ITS ---
Discharge Providers Date of Admission: May 10, 2023 Date of Discharge: May 10, 2023 Attending Provider at Admission: Moe Cason MD Attending Provider at Discharge: Moe Cason M.D Primary Care Provider: Thomas Moy DO Reason for Visit Reason for Visit: R94.39 Brief History: 62-year-old man with past medical history of CAD s/p CABG in 2020 who has been having dyspnea on exertion and chest heaviness. Stress test is abnormal. Plan for coronary angiogram with possible percutaneous coronary intervention. Hospital Course Hospital Course Coronary Angiogram demonstrated atretic RUIZ to LAD and critical stenosis of left main artery. He underwent successful revascularization of left main artery to LAD with 1 stent and intravascular lithotripsy. Patient was observed overnight and stayed stable. He was discharged home in stable condition on aspirin and Plavix. Physical Exam Narrative: GENERAL: Patient is alert, awake and oriented x3. [] NECK: No jugular vein distension. [] HEENT: No cyanosis. No icterus. No pallor. [] HEART: Regular S1 and S2. No murmur, rub or gallop. [] LUNGS: Clear to auscultate bilaterally. [] CENTRAL NERVOUS SYSTEM: Grossly nonfocal. 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 Routine Exams 05/09/23 09:00 Taken Laboratory Results WBC 7.87 10^3/uL (3.29-11.43) 05/10/23 04:25 RBC 4.39 10^6/uL (3.85-5.65) 05/10/23 04:25 Hgb 14.00 g/dL (11.27-16.99) 05/10/23 04:25 Hct 41.6 % (37-53) 05/10/23 04:25 MCV 94.8 fl (82-101) 05/10/23 04:25 MCH 31.9 pg (27-33) 05/10/23 04:25 MCHC 33.7 g/dL (30-55) 05/10/23 04:25 RDW 12.6 % (12.1-15.1) 05/10/23 04:25 Plt Count 167 10^3/cmm (157-399) 05/10/23 04:25 MPV 11.5 fL (7.4-10.4) H 05/10/23 04:25 Neut % (Auto) 64.3 % 05/10/23 04:25 Lymph % (Auto) 22.1 % 05/10/23 04:25 Geary % (Auto) 10.4 % 05/10/23 04:25 Eos % (Auto) 2.4 % 05/10/23 04:25 Baso % (Auto) 0.5 % 05/10/23 04:25 Neut # (Auto) 5.06 10^3/uL (1.8-7.7) 05/10/23 04:25 Lymph # (Auto) 1.7 10^3/uL (0.8-4.8) 05/10/23 04:25 Geary # (Auto) 0.8 10^3/uL (0.2-0.9) 05/10/23 04:25 Eos # (Auto) 0.2 10^3/uL (0.0-0.8) 05/10/23 04:25 Baso # (Auto) 0.0 10^3/uL (0.0-0.1) 05/10/23 04:25 Nucleated RBC % (auto) 0 % 05/10/23 04:25 Nucleated RBCs # 0.0 /100WBC 05/10/23 04:25 APTT 52.7 SECONDS (23.9-36.7) H 05/09/23 14:30 Sodium 140 mmol/L (136-145) 05/10/23 04:25 Potassium 4.6 mmol/L (3.5-5.1) 05/10/23 04:25 Chloride 103 mmol/L (98-107) 05/10/23 04:25 Carbon Dioxide 31 mmol/L (22-29) H 05/10/23 04:25 Anion Gap 10.6 (5-19) 05/10/23 04:25 BUN 13 mg/dL (8-23) 05/10/23 04:25 Creatinine 0.9 mg/dL (0.7-1.2) 05/10/23 04:25 GFR Calculation 85.5 mL/min (90-130) L 05/10/23 04:25 Glucose 104 mg/dL (65-115) 05/10/23 04:25 Calculated Osmolality 290 mOsm/kg (285-295) 05/10/23 04:25 Calcium 8.7 mg/dL (8.5-10.5) 05/10/23 04:25 Vitals Last Vital Signs Temp 97.8 F 05/10/23 07:56 Pulse 98 05/10/23 07:56 Resp 20 H 05/10/23 07:56 BP 80/60 05/10/23 07:56 Pulse Ox 92 05/10/23 07:56 O2 Del Method Room Air 05/10/23 07:56 Discharge Plan Discharge Patient Disposition: Home Prescriptions: Continued nitroglycerin [Nitrostat] 0.4 mg tablet, sublingual 0.4 mg SUBLINGUAL Q5M PRN (Reason: Chest Pain) aspirin [Adult Low Dose Aspirin] 81 mg tablet,delayed release (DR/EC) 81 mg PO QAM simvastatin 40 mg tablet 40 mg PO BEDTIME Qty: 90 3RF acetaminophen [Tylenol Extra Strength] 500 mg tablet 500 mg PO Q6H PRN (Reason: Pain) metoprolol tartrate 50 mg tablet 50 mg PO DAILY buspirone 10 mg tablet 15 mg PO BID trazodone 50 mg tablet 50 mg PO BEDTIME lidocaine 5 % Cream 1 applic TOPICAL BID PRN (Reason: Pain) nicotine 21 mg/24 hr Patch 24 Hour 1 patch TRANSDERMAL DAILY Held amlodipine 5 mg tablet 5 mg PO DAILY Qty: 90 3RF Hold Instructions: Resume on 05/17/23. No Action clopidogrel 75 mg tablet 75 mg PO DAILY Qty: 90 3RF Discharge Orders: Discharge Order (Routine); Ordered 05/10/23 Ordered By: Moe Cason Referrals: Ro Valiente [Dietitian/Curriculum Assistant Principal] - (consult for heart healthy pos angiogram with heart stent placement.) Maryan Gil FNP [Nurse Practitioner] - 06/02/23 9:30 am Patient Instructions: Clopidogrel (By mouth) (Plavix), Coronary Angioplasty (DC), Heart Healthy Diet (DC), DASH Eating Plan (DC), Coronary Intravascular Stent Placement (DC), Post Angiogram Home Care Instructions Activity Restrictions/Additional Instructions: Please keep log of BP reading (1 week, AM and PM) and bring to appointment at cardiology office Discharge Date/Time: 05/10/23 11:17 Discharge Attestations Time Spent in Discharge Care*: less than 30 min Quality Metrics Clinical Quality Measures [ No reported AMI, CVA or VTE this stay] Coding Level of Care Code Acute Code for Chg Fwd Diagnoses
[2023-05-10] MEDS: metoprolol tartrate 25 mg Tablet PO (10:30)
--- NOTE | 2023-05-10 12:13 | PC.NURSE ---
medication upon discharge pt wants only 1 week supply of his plavix at [facility] until [facility]. called [facility] and are aware of the pt's medication dispense.
== END 2023-05-10 11:17 | disposition home or self-care (01) ==
LOC: CCL 08:57 → CSU 05-10 07:15
PROVIDERS: PCP Emergency Medicine Emergency Medical Services; Visit Provider Internal Medicine
DX: I25.10 Atherosclerotic heart disease of native coronary artery without angina pectoris (principal); Z95.1 Presence of aortocoronary bypass graft; Z79.82 Long term (current) use of aspirin; N40.0 Benign prostatic hyperplasia without lower urinary tract symptoms; K21.9 Gastro-esophageal reflux disease without esophagitis; I10 Essential (primary) hypertension; E78.5 Hyperlipidemia, unspecified; Z87.891 Personal history of nicotine dependence
CPT/HCPCS: 36415; 80048; 85025; 85347; 85730; 92978; 93455; 96361; 96365; 96367; 99152; 99153; C1725; C1753; C1769; C1874; C1887; C1894; C9600; J1644; J2250; J2405; J3010; J7030; Q0163; Q9967

== ENCOUNTER → 2023-06-02 09:19 | Outpatient (BNVA) | payer OTHER, SELFPAY | PROVIDERS: PCP Emergency Medicine Emergency Medical Services; Visit Provider Nurse Practitioner Family | DX: I25.10 Atherosclerotic heart disease of native coronary artery without angina pectoris (principal); Z87.891 Personal history of nicotine dependence; Z95.1 Presence of aortocoronary bypass graft; I10 Essential (primary) hypertension | CPT/HCPCS: 36415; 80048; 99214 ==

== ENCOUNTER 2023-06-29 08:32 | Outpatient (CLI) | payer OTHER, SELFPAY ==
--- NOTE | 2023-06-29 08:41 | MR_ITS ---
WS: [id number] MRI LUMBAR SPINE NONCONTRAST HISTORY: BILATERAL HIP PAIN W/RADIATION DOWN BOTH LEGS COMPARISON: MRI 12/01/2021 TECHNIQUE: Sagittal and axial multisequence imaging is submitted. Prior cervical fusion at C6-7. Reidentified is a central disc protrusion contacting the ventral cervi alexandrea cord at C5-6. Posterior lumbar fusion at L5-S1 with decompression laminectomy. Posterior vertebral body alignment i s normal. Mild disc desiccation at L4-5 and L5-S1. No fractures or marrow edema. Conus terminates normally at L1-2 disc level. L1-L2: Negative. L2-L3: Mild annular disc bulging with ligamentum flavum and facet arthritis. No stenosis. L3-L4: Mild annular disc bulging encroaching upon the subarticular recesses and the traversing L4 ner ve roots. Mild ligamentum flavum and facet arthritis. No stenosis. L4-L5: Mild annular disc bulging and osteophytic ridging. RIGHT paracentral disc and/or osteophyte en croaches upon the RIGHT lateral thecal sac with extension into the foramina. Marked facet and ligamen morenita flavum arthritis. Moderate bilateral foraminal stenosis. L5-S1: Large posterior laminectomy defect. Mild clumping of the nerve roots in the thecal sac. No javed tral stenosis. Mild osteophytic ridging. Moderate RIGHT and mild LEFT foraminal stenosis. No paravertebral soft tissue abnormality. IMPRESSION: 1. Status post prior L5-S1 posterior fusion with decompression. 2. L4-5: RIGHT paracentral disc protrusion and/or osteophyte encroaches upon the RIGHT lateral thecal sac with extension into the RIGHT foramen. Mild progression since the prior examination. Contact on the RIGHT L4 and L5 nerve roots. Moderate bilateral foraminal stenosis. 3. L5-S1: Moderate RIGHT and mild LEFT foraminal stenosis. 4. No acute fractures.
== END 2023-06-29 08:33 | disposition home or self-care (01) ==
LOC: RAD 08:33
PROVIDERS: PCP Emergency Medicine Emergency Medical Services; Visit Provider Emergency Medicine Emergency Medical Services
DX: M25.552 Pain in left hip (principal); Z98.1 Arthrodesis status; M51.26 Other intervertebral disc displacement, lumbar region; M48.07 Spinal stenosis, lumbosacral region; M25.551 Pain in right hip; M79.605 Pain in left leg; M79.604 Pain in right leg
CPT/HCPCS: 72148

== ENCOUNTER → 2023-07-28 14:06 | Outpatient (BNVA) | payer OTHER, SELFPAY | PROVIDERS: PCP Emergency Medicine Emergency Medical Services; Visit Provider Orthopaedic Surgery | DX: M47.816 Spondylosis without myelopathy or radiculopathy, lumbar region (principal); M48.061 Spinal stenosis, lumbar region without neurogenic claudication; Z95.5 Presence of coronary angioplasty implant and graft | CPT/HCPCS: 72110; 99204 ==

== ENCOUNTER → 2023-08-26 09:49 | Outpatient (BNVA) | payer OTHER, SELFPAY | PROVIDERS: PCP Emergency Medicine Emergency Medical Services; Visit Provider Internal Medicine Cardiovascular Disease | DX: I10 Essential (primary) hypertension (principal); I25.110 Atherosclerotic heart disease of native coronary artery with unstable angina pectoris; E78.5 Hyperlipidemia, unspecified; R00.0 Tachycardia, unspecified; Z87.891 Personal history of nicotine dependence | CPT/HCPCS: 99214 ==

== ENCOUNTER 2023-09-19 10:46 | Emergency (ER) | payer OTHER, SELFPAY ==
[2023-09-19 11:02] VITALS: BP 133/86; PULSE 84; RESP 14; TEMP 36.7; O2SAT 94; BMI 28.5
--- NOTE | 2023-09-19 13:10 | CTR_ITS ---
PROCEDURE INFORMATION: Exam: CT Head Without Contrast Exam date and time: 09/19/2023 1:54 PM Age: 62 years old Clinical indication: Visual disturbance; Additional info: Vision loss TECHNIQUE: Imaging protocol: Computed tomography of the head without contrast. Radiation optimization: All CT scans at this facility use at least one of these dose optimization techniques: automated exposure control; mA and/or kV adjustment per patient size (includes targeted exams where dose is matched to clinical indication); or iterative reconstruction. COMPARISON: CT head wo con* [id number] 10/30/2021 10:15 AM RADIATION DOSE METRICS: Total DLP (mGy-cm): 1154 FINDINGS: Brain: Mild parenchymal volume loss. No midline shift. No mass, acute infarct, hemorrhage, or extra-axial fluid collection. Cerebral ventricles: No ventriculomegaly. Paranasal sinuses: Visualized sinuses are unremarkable. No fluid levels. Mastoid air cells: Visualized mastoid air cells are well aerated. Bones/joints: Unremarkable. No acute fracture. Soft tissues: Unremarkable. Vasculature: Punctate calcification along the wall of the A2 segment of the left anterior cerebral artery, unchanged. CT/CT head wo con* [id number] IMPRESSION: No acute intracranial abnormality.
--- NOTE | 2023-09-19 13:22 | W.ED.EYEPROB ---
HPI - Eye Problem General: Chief complaint: Eye Problems Stated complaint: Va sent over, stroke symptoms, vision issues right Time Seen by Provider: 09/19/23 13:00 Source: patient Mode of arrival: ambulatory Limitations: no limitations History of Present Illness: 62-year-old male states over the last 3 to 4 days he has been having he states patchiness in his vision in his right eye. He states that he has black splotches he sees states he is able to see but it is very splotchy on the right eye denies any pain denies any headache denies any slurred speech denies any weakness. Associated symptoms: Denies fever(s), headache(s), nausea, neck pain or vomiting Review of Systems Const: Denies: fever(s), chills, body aches or change in appetite Eyes: Reports: change in vision ENMT: Denies: throat pain or dental pain Card: Denies: chest pain Resp: Denies: dyspnea GI: Denies: abdominal pain, nausea, vomiting or diarrhea Musc: Denies: neck pain or back pain Skin/Breast: Denies: rash Neuro: Denies: headache(s) Psych: Denies: depression PFS ED PFSH: Medical History Steroid-induced psychosis GERD (gastroesophageal reflux disease) Hernia BPH (benign prostatic hyperplasia) Adjustment disorder with mixed disturbance of emotions and conduct Hyperlipidemia LDL goal <70 Continue statin Coronary artery disease Patient has multivessel coronary disease including distal left main 80% mid LAD 80% and proximal RCA 70%. He has normal ejection fraction. Due to nonavailability of surgical staff we are going to transfer the patient to [facility]. I have discussed with patient and he agrees with it. . As defined above I have spoken to Dr. Patiño at [facility], heart team at [facility] has accepted the transfer. We will transfer the patient he is stable vital asencio he is not on any drip he has distal left main significant 80% stenosis, mid significant 80% LAD and proximal RCA. Patient has prior stents. He has normal left ventricular ejection fraction. He is stable vital asencio but continues to have angina upon mild exertion. HTN (hypertension) Appear to be stable continue current regimen Surgical History H/O neck surgery S/P skin and subcutaneous tissue surgery S/P spinal surgery S/P CABG (coronary artery bypass graft) S/P PTCA (percutaneous transluminal coronary angioplasty) Family History Sister Stroke Mother Stroke CAD (coronary artery disease) Social History Smoking and tobacco/nicotine status: former use of tobacco/nicotine Second hand smoke exposure: No Alcohol intake: never Substance/Drug Use: never Lives independently: Yes Household members: spouse Marital status: Physical Exam Const: COMMON NORMALS: no acute distress, patient oriented x3 and healthy appearing HENMT: COMMON NORMALS: normocephalic and atraumatic HEAD & SCALP: normocephalic and atraumatic Eye: COMMON NORMALS: Equal, round and reactive pupils present and EOMs intact bilaterally PUPIL: Yes Equal, round and reactive pupils present Neck/C-Spine: COMMON NORMALS: full ROM and supple Chest: COMMONS NORMALS: normal inspection of the chest and normal palpation of entire chest wall Resp: COMMON NORMALS: normal respiratory effort, No retractions, No use of accessory muscles and clear to auscultation bilaterally AUSCULTATION: clear to auscultation bilaterally Cardio: COMMON NORMALS: regular rate, regular rhythm and No murmurs present (Cardio) RATE: regular rate RHYTHM: regular rhythm GI: COMMON NORMALS: Normal to inspection, nondistended, normoactive bowel sounds present, Soft to palpation, non-tender and no masses PALPATION: Yes Soft to palpation Extremity: COMMON NORMALS: normal to inspection and full ROM Neuro: COMMON NORMALS: patient oriented x3, moves all extremities and no focal motor deficits Psych: COMMON NORMALS: mental status grossly normal, Normal thought process present and cooperative THOUGHT PROCESS: Normal thought process present Skin: COMMON NORMALS: no rashes or lesions noted and no wounds GENERAL SKIN EXAM: no rashes or lesions noted Course Vital Signs: Vital signs: Vital Signs Temperature 98.0 F 09/19/23 11:02 Pulse Rate 84 09/19/23 11:02 Respiratory Rate 14 09/19/23 11:02 Blood Pressure 133/86 09/19/23 11:02 Pulse Oximetry 94 09/19/23 11:02 Oxygen Delivery Me thod Room Air 01/08/24 11:02 MDM - Eye Problem Medical Decision Making Patient presents here as a blurred vision of the right eye he has no other deficits here he has no signs of stroke his visual walekr are intact from talking to him he states that he feels like he sees black splotches at times he has no signs of acute angle glaucoma this is been going on for days I did speak to ophthalmology and he is to follow-up with him in a day or 2 return if worsening. Lab Data I reviewed the patient's lab results. Radiology Impressions Head CT 09/19/23 13:10 IMPRESSION: No acute intracranial abnormality. No radiology studies performed this visit Discharge Plan Discharge Patient Disposition: Home Clinical Impression: Blurred vision Condition: Stable Prescriptions: No Action nitroglycerin [Nitrostat] 0.4 mg tablet, sublingual 0.4 mg SUBLINGUAL Q5M PRN (Reason: Chest Pain) aspirin [Adult Low Dose Aspirin] 81 mg tablet,delayed release (DR/EC) 81 mg PO QAM simvastatin 40 mg tablet 40 mg PO BEDTIME Qty: 90 3RF acetaminophen [Tylenol Extra Strength] 500 mg tablet 500 mg PO Q6H PRN (Reason: Pain) metoprolol tartrate 50 mg tablet 50 mg PO DAILY clopidogrel 75 mg tablet 75 mg PO DAILY Qty: 90 3RF hydrocodone-acetaminophen 5-325 mg tablet 1 tab PO Q8H PRN (Reason: pain) 7 Days Qty: 20 0RF buspirone 10 mg tablet 15 mg PO BID trazodone 50 mg tablet 50 mg PO BEDTIME lidocaine 5 % Cream 1 applic TOPICAL BID PRN (Reason: Pain) nicotine 21 mg/24 hr Patch 24 Hour 1 patch TRANSDERMAL DAILY Discharge Orders: Discharge ED (Routine); Ordered 09/19/23 Ordered By: Mely Nixon Referrals: Thomas Viramontes [Physician] - 1-3 days Thomas Moy, [Primary Care Provider] - Discharge Diet: Advance as tolerated Discharge Activity: Resume usual activity Patient Instructions: Blurred Vision (ED) Coding Level of Care Code ED 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
--- NOTE | 2023-09-19 14:30 | PC.PHAR ---
medications entered were [facility]-pt discharged before getting to verify [facility] med[facility]
--- NOTE | 2023-09-22 10:07 | DCPLANNER ---
I faxed referral for Dr. [facility] to the clinic for vision changes on 09/22/23 at 0930. Clinic to contact patient for appointment. Fax number: [phone]
== END 2023-09-19 14:50 | disposition home or self-care (01) ==
PROVIDERS: Emergency Provider Emergency Medicine; PCP Emergency Medicine Emergency Medical Services
DX: H53.8 Other visual disturbances (principal); Z79.82 Long term (current) use of aspirin; Z79.02 Long term (current) use of antithrombotics/antiplatelets; Z87.891 Personal history of nicotine dependence; E78.5 Hyperlipidemia, unspecified; I25.10 Atherosclerotic heart disease of native coronary artery without angina pectoris; I10 Essential (primary) hypertension; Z95.1 Presence of aortocoronary bypass graft
CPT/HCPCS: 70450; 99284

== ENCOUNTER → 2023-09-27 13:47 | Outpatient (BNVA) | payer OTHER, SELFPAY | PROVIDERS: PCP Emergency Medicine Emergency Medical Services; Visit Provider Orthopaedic Surgery | DX: M51.36 Other intervertebral disc degeneration, lumbar region (principal); M43.16 Spondylolisthesis, lumbar region; Z79.02 Long term (current) use of antithrombotics/antiplatelets | CPT/HCPCS: 99213 ==

== ENCOUNTER → 2023-10-11 14:30 | Outpatient (BNVA) | payer OTHER, SELFPAY | PROVIDERS: PCP Emergency Medicine Emergency Medical Services; Visit Provider Internal Medicine | DX: I10 Essential (primary) hypertension (principal); M54.2 Cervicalgia; G89.29 Other chronic pain; E78.5 Hyperlipidemia, unspecified; R00.0 Tachycardia, unspecified; Z87.891 Personal history of nicotine dependence; I25.118 Atherosclerotic heart disease of native coronary artery with other forms of angina pectoris | CPT/HCPCS: 99214 ==

== ENCOUNTER 2023-10-12 13:13 | Outpatient (CLI) | payer OTHER, SELFPAY ==
--- NOTE | 2023-10-12 13:19 | USCV_ITS ---
Fahad Chakraborty Age: 62 Gender: M : 1960 Exam Date: 10/12/2023 13:33 Ordering Phys: Moe Cason M.D ([email or web address]) Technologist: CT Exam Location: [facility] [place] Indication: stenosis, blurry rt eye vision Risk Factors: Previous Vascular Surgery: Right Brachial BP: / Left Brachial BP: / Right Left Velocity (cm/s) Spectral Plaque Velocity (cm/s) Spectral Plaque Syst/Diast Broadening Syst/Diast Broadening 91.50/ 20.90 Prox CCA 94.10 / 28.60 62.20/ 17.80 Mid CCA 81.10 / 25.60 67.80/ 18.90 Distal CCA 73.70 / 26.70 56.60/ 18.90 Prox ICA 52.60 / 17.50 62.60/ 24.00 Mid ICA 67.00 / 25.10 71.20/ 23.20 Distal ICA 81.40 / 28.80 91.80 ECA 110.00 0.78 ICA/CCA 0.87 Antegrade Vertebral Antegrade 23.30/ 10.00 cm/s 45.30/ 15.40 cm/s Tri Subclavian Tri 76.40 89.30 FINDINGS Comparison: none available. No significant elevation of systolic or diastolic velocities. Waveforms are normal. Minimal plaque in the bifurcations. CONCLUSIONS Bilateral ICA stenosis less than 50%. Dr. Elis Carpenter DO (Electronically Signed) Final Date: 12 October 2023 15:08 S
== END 2023-10-12 13:14 | disposition home or self-care (01) ==
LOC: RAD 13:13
PROVIDERS: PCP Emergency Medicine Emergency Medical Services; Visit Provider Emergency Medicine Emergency Medical Services
DX: I65.23 Occlusion and stenosis of bilateral carotid arteries (principal); M54.2 Cervicalgia; G89.29 Other chronic pain; H53.8 Other visual disturbances
CPT/HCPCS: 93880

== ENCOUNTER → 2023-11-29 09:42 | Outpatient (BNVA) | payer OTHER, SELFPAY | PROVIDERS: PCP Emergency Medicine Emergency Medical Services; Visit Provider Orthopaedic Surgery | DX: M48.062 Spinal stenosis, lumbar region with neurogenic claudication (principal) | CPT/HCPCS: 36415; 80053; 85025; 99214 ==

== ENCOUNTER → 2024-02-27 14:16 | Outpatient (BNVA) | payer OTHER, SELFPAY | PROVIDERS: PCP Emergency Medicine Emergency Medical Services; Visit Provider Internal Medicine Cardiovascular Disease | DX: Z01.818 Encounter for other preprocedural examination (principal); M48.062 Spinal stenosis, lumbar region with neurogenic claudication; I25.10 Atherosclerotic heart disease of native coronary artery without angina pectoris; Z95.1 Presence of aortocoronary bypass graft; I10 Essential (primary) hypertension; Z72.0 Tobacco use | CPT/HCPCS: 99214 ==

== ENCOUNTER → 2024-04-05 15:00 | Outpatient (BNVA) | payer OTHER, SELFPAY | PROVIDERS: PCP Emergency Medicine Emergency Medical Services; Visit Provider Orthopaedic Surgery | DX: M48.062 Spinal stenosis, lumbar region with neurogenic claudication (principal) | CPT/HCPCS: 80053; 81003; 85025; 99214 ==

== ENCOUNTER → 2024-04-09 15:07 | Outpatient (BNVA) | payer OTHER, SELFPAY | PROVIDERS: PCP Emergency Medicine Emergency Medical Services; Visit Provider Internal Medicine | DX: I10 Essential (primary) hypertension (principal); E78.5 Hyperlipidemia, unspecified; I25.10 Atherosclerotic heart disease of native coronary artery without angina pectoris; R00.0 Tachycardia, unspecified; Z72.0 Tobacco use | CPT/HCPCS: 99214 ==

== ENCOUNTER → 2024-04-20 09:29 | Outpatient (BNVA) | payer OTHER, SELFPAY | PROVIDERS: PCP Emergency Medicine Emergency Medical Services; Visit Provider Family Medicine | DX: Z01.818 Encounter for other preprocedural examination (principal) | CPT/HCPCS: 93005 ==

== ENCOUNTER 2024-05-09 05:44 | Day surgery (SDC) | payer OTHER, SELFPAY ==
[2024-05-09] VITALS (15 sets, daily range): BP systolic 91–133; BP diastolic 47–83; PULSE 58–86; RESP 12–20; TEMP 36.1–37.1; O2SAT 94–100; BMI 26.0
[2024-05-09] MEDS: sodium chloride 0.9% 1,000 ML 30 ML IV (06:05)
--- NOTE | 2024-05-09 06:28 | W.PM.OPSUD ---
Surgery/Procedure H&P Update DATE OF PROCEDURE: May 09, 2024 DATE H&P PERFORMED: 04/20/24 H&P UPDATE INFORMATION: I have reviewed H&P completed within last 30 days, I have examined patient prior to procedure and No changes to prior documentation PREOP DIAGNOSIS: Lumbar stenosis with neurogenic claudication PLANNED PROCEDURE: Operation Date: 05/09/24 07:00 Proposed Procedures p Spinal Fusion PSF(Not Applicable) - Tiago Bateman DO s Lumbopelvic Fixation(Not Applicable) - DO caitlyn Burt Sacroiliac Joint Fusion SI Joint Fusion(Not Applicable) - Tiago Bateman DO
--- NOTE | 2024-05-09 06:34 | ANES.PREANE2 ---
Pre-Anesthetic Assessment Height/Weight: Height 1.83 m Weight 87.09 kg Temp Pulse Resp BP Pulse Ox O2 Del Method 97.3 F L 86 16 132/83 95 Room Air 05/09/24 06:06 05/09/24 06:06 05/09/24 06:06 05/09/24 06:06 05/09/24 06:06 05/09/24 06:06 Preop Diagnosis: Lumbar stenosis with neurogenic claudication Operation Date: 05/09/24 07:00 Proposed Procedures p Spinal Fusion PSF(Not Applicable) - Tiago Bateman DO s Lumbopelvic Fixation(Not Applicable) - Tiago Bateman DO s Sacroiliac Joint Fusion SI Joint Fusion(Not Applicable) - Tiago Bateman DO Familial anesthetic complications: None Was Beta Nila taken within 24 hours: N/A Was Clonidine taken within 24 hours: N/A Last intake: Intake Last Liquid Date 05/08/24 Last Liquid Time 19:00 Last Solid Date 05/08/24 Last Solid Time 17:00 Social Tobacco and No alcohol Exam alert, oriented x 3, clear to auscultation bilaterally and regular rate & rhythm Airway Mallampati: Class I Dentition: other (no teeth) CV/HEM Coronary Artery Disease (HX BYPASS, AND STENT LAST year) and Hypertension GI Gastroesophageal Reflux Disease Anesthetic Plan ASA status: 4 Anesthesia: General Risk of > 500 ml blood loss (7ml/kg in children): Yes, adequate IV access and fluids planned Medications/Allergies Home Medications Medication Instructions Recorded Confirmed Last Taken Type aspirin 81 mg tablet,delayed 81 mg PO QAM 12/24/19 05/09/24 05/03/24 History release (Adult Low Dose Aspirin) nitroglycerin 0.4 mg sublingual 0.4 mg sublingual Q5M PRN Chest 12/24/19 05/09/24 Unknown History tablet (Nitrostat) Pain clopidogrel 75 mg tablet 75 mg PO DAILY #90 tabs 05/11/23 05/09/24 05/03/24 Rx pantoprazole 40 mg tablet,delayed 40 mg PO DAILY 09/19/23 05/09/24 05/09/24 History release (Protonix) trazodone 100 mg tablet 200 mg PO BEDTIME 09/19/23 05/09/24 05/08/24 History metoprolol tartrate 50 mg tablet 75 mg PO BID 10/11/23 05/09/24 05/09/24 History buspirone 10 mg tablet 10 mg PO BID 04/20/24 05/09/24 05/08/24 History duloxetine 20 mg capsule,delayed 20 mg PO DAILY 04/20/24 05/09/24 05/09/24 History release (Cymbalta) oxycodone 5 mg tablet 5 mg PO DAILY PRN Pain 04/20/24 05/09/24 05/07/24 History prazosin 1 mg capsule 1 mg PO .qhs 04/20/24 05/09/24 05/08/24 History simvastatin 40 mg tablet 80 mg PO BEDTIME 04/20/24 05/09/24 05/08/24 History Allergies Allergy/AdvReac Type Severity Reaction Status Date / Time tramadol [From Ultram] Allergy Severe Seizures Verified 05/04/24 10:10 celecoxib [From Celebrex] Allergy Mild Chronic Verified 05/04/24 10:10 Diarrhea dexamethasone AdvReac Intermediate ADR-Agitate Verified 05/04/24 10:10 d ibuprofen AdvReac Mild Taking Verified 05/04/24 10:10 Plavix mint Allergy Unknown Uncoded 05/04/24 10:10 [facility] Anesthesia Medical History Steroid-induced psychosis GERD (gastroesophageal reflux disease) Hernia BPH (benign prostatic hyperplasia) Adjustment disorder with mixed disturbance of emotions and conduct Hyperlipidemia LDL goal <70 Continue statin Coronary artery disease Patient has multivessel coronary disease including distal left main 80% mid LAD 80% and proximal RCA 70%. He has normal ejection fraction. Due to nonavailability of surgical staff we are going to transfer the patient to [facility]. I have discussed with patient and he agrees with it. . As defined above I have spoken to Dr. Patiño at [facility], heart team at [facility] has accepted the transfer. We will transfer the patient he is stable vital asencio he is not on any drip he has distal left main significant 80% stenosis, mid significant 80% LAD and proximal RCA. Patient has prior stents. He has normal left ventricular ejection fraction. He is stable vital asencio but continues to have angina upon mild exertion. HTN (hypertension) Appear to be stable continue current regimen Surgical History H/O neck surgery S/P skin and subcutaneous tissue surgery S/P spinal surgery S/P CABG (coronary artery bypass graft) S/P PTCA (percutaneous transluminal coronary angioplasty) Family History Sister Stroke Mother Stroke CAD (coronary artery disease) Social History Smoking and tobacco/nicotine status: current every day tobacco/nicotine user Second hand smoke exposure: No Alcohol intake: never Substance/Drug Use: never Lives independently: Yes Household members: spouse Marital status: Data Anesthesia Cardiac Studies: Echocardiogram 04/21/23 Echocardiogram Ultrasound 09/16/20 Sestamibi Stress Test (Cardiology) 04/28/23
--- NOTE | 2024-05-09 08:25 | PC.NURSE ---
819 - Dr Cobb at side to assist in hooking up pts arterial line - phase 1 vital signs charted from 819 - phase 2 are art line blood pressures
--- NOTE | 2024-05-09 08:39 | PC.NURSE ---
0835 - Dr Cobb and NOE Dave at pts side to assess vital signs and pts condition - per and NOE ok to discontinue art line and edge catheter - pt is alert to self and place at this time - vital signs have been stable throughout pacu phase 1 stay
--- NOTE | 2024-05-09 08:45 | PC.NURSE ---
08 - art line discontinued per Bella Otto RN - blood pressures starting from 08 will be pts left sided blood pressure cuff
--- NOTE | 2024-05-09 08:59 | PC.NURSE ---
0837 - Dr Cobb discussing case with pts spouse as well as patient
--- NOTE | 2024-05-09 09:00 | PC.NURSE ---
0857 - pt taken to Phase 2 - report given to BAKARI Duvall - x2 RNs at side
--- NOTE | 2024-05-09 09:08 | PC.NURSE ---
0845 - pt is able to state name, , bilateral asthma educator are equal, able to push/pull bilateral feet and follow commands
--- NOTE | 2024-05-09 09:35 | ANE.PACU2 ---
Inpatient post-anesthesia follow up: Airway intact: Yes Vital signs: Temperature 97.1 F Pulse Rate 61 Respiratory Rate 16 Blood Pressure 110/72 Pulse Oximetry 97 Oxygen Delivery Me thod Room Air Oxygen Flow Rate 2 Fraction of Inspir ed Oxygen Hydration adequate: Yes Nausea and vomiting: No Pain level: 1 Mental status: Baseline
== END 2024-05-09 09:39 | disposition home or self-care (01) ==
PROVIDERS: PCP Family Medicine; Visit Provider Orthopaedic Surgery
DX: M48.062 Spinal stenosis, lumbar region with neurogenic claudication (principal); I25.10 Atherosclerotic heart disease of native coronary artery without angina pectoris; I10 Essential (primary) hypertension; K21.9 Gastro-esophageal reflux disease without esophagitis; Z79.82 Long term (current) use of aspirin; E78.5 Hyperlipidemia, unspecified; Z95.5 Presence of coronary angioplasty implant and graft; Z72.0 Tobacco use; Z53.09 Procedure and treatment not carried out because of other contraindication
CPT/HCPCS: 36415; 51702; 86850; 86900; J0131; J0171; J0690; J1200; J2704; J3490; J7030; P9045

== ENCOUNTER → 2024-05-17 14:08 | Outpatient (BNVA) | payer OTHER, SELFPAY | PROVIDERS: PCP Family Medicine; Visit Provider Orthopaedic Surgery | DX: M48.062 Spinal stenosis, lumbar region with neurogenic claudication (principal) | CPT/HCPCS: 99213 ==

== ENCOUNTER → 2024-05-21 12:41 | Outpatient (BNVA) | payer OTHER, SELFPAY | PROVIDERS: PCP Family Medicine; Visit Provider Internal Medicine | DX: I10 Essential (primary) hypertension (principal); E78.5 Hyperlipidemia, unspecified; I25.10 Atherosclerotic heart disease of native coronary artery without angina pectoris; R00.0 Tachycardia, unspecified; Z72.0 Tobacco use | CPT/HCPCS: 99214 ==

== ENCOUNTER 2024-06-28 12:35 | Outpatient (CLI) | payer OTHER, SELFPAY ==
--- NOTE | 2024-06-28 12:45 | USCV_ITS ---
Fahad Chakraborty Age: 63 Gender: M : 1960 Exam Date: 06/28/2024 12:57 Ordering Phys: Moe Cason M.D ([email or web address]) Technologist: ELISE [place] [facility] [place]ication: ECHO BP: 140 / 70 HR: 65 Rhythm: Sinus Technical Quality: Adequate MEASUREMENTS (Male / Female) Normal Values 2D ECHO LV Diastolic Diameter PLAX 4.1 cm 4.2 - 5.9 / 3.9 - 5.3 cm IVS Diastolic Thickness 0.8 cm 0.6 - 1.0 / 0.6 - 0.9 cm IVS Systolic Thickness 1.6 cm LVPW Diastolic Thickness 1.9 cm 0.6 - 1.0 / 0.6 - 0.9 cm LVPW Systolic Thickness 2.0 cm LVOT Diameter 2.0 cm LV Ejection Fraction 2D Teich 58.5 % LV Ejection Fraction MOD 4C 69.1 % LV Ejection Fraction MOD 2C 61.2 % LV Ejection Fraction 2C AL 62.9 % LA Diameter 2.4 cm RA Systolic Volume 4C AL 19.3 ml RA Systolic Volume 4C MOD 18.9 ml LA Sys Volume AL 31.1 cm cubed LA Sys Volume Index AL 14.6 cm cubed/m squared Aorta at Sinotubular Diameter 2.4 cm IVC Diameter 1.4 cm M-MODE LA Ao Ratio MM 0.6 AV Cusp Separation MM 2.0 cm DOPPLER AV Peak Velocity 105.0 cm/s LVOT Peak Velocity 80.0 cm/s AV Area Cont Eq vti 2.5 cm squared AV Area Cont Eq pk 2.5 cm squared MV Peak Velocity 96.0 cm/s MV Area PHT 2.1 cm squared Mitral E to A Ratio 0.9 TR Peak Velocity 92.0 cm/s TR Peak Gradient 3.4 mmHg TR Mean Velocity 74.0 cm/s TR Mean Gradient 2.3 mmHg TR Velocity Time Integral 26.0 cm TV Peak E Velocity 38.0 cm/s Right Atrial Pressure 3.0 mmHg Pulmonary Artery Systolic Pressu 6.4 mmHg PV Peak Velocity 120.0 cm/s RV Ejection Time 0.4 s FINDINGS Left Ventricle Normal left ventricular size, systolic function and wall thickness, with no regional wall motion abnormalities. Left ventricular ejection fraction is estimated at 60 %. Grade I/IV diastolic dysfunction (abnormal relaxation filling pattern), normal to mildly elevated filling pressures. Right Ventricle The right ventricle is normal in size and function. Right Atrium The right atrium is normal in size. Left Atrium The left atrium is normal in size. Mitral Valve Structurally normal mitral valve without significant stenosis or prolapse. There is no mitral regurgitation. Aortic Valve Structurally normal aortic valve without significant sclerosis or stenosis. There is no aortic regurgitation. Tricuspid Valve Structurally normal tricuspid valve without significant stenosis or regurgitation. Pulmonary artery systolic pressure is normal. Pulmonic Valve Structurally normal pulmonic valve without significant stenosis. There is no pulmonic regurgitation. Pericardium Normal pericardium without effusion. Aorta Normal ascending aorta dimension. IVC The inferior vena cava appears normal. CONCLUSIONS CONCLUSIONS: 1. Normal left ventricular size, systolic function and wall thickness, with no regional wall motion abnormalities. Left ventricular ejection fraction is estimated at 60%. Normal left ventricular wall thickness. Normal diastolic filling pattern. 2. No significant chamber abnormalities. 3. No sigificant valve abnormalities. 4. There is no pericardial effusion. 5. There are no intracardiac masses. 6. Pulmonary artery systolic pressure is within normal limits. 7. Right atrial pressure is around 5 mm of mercury. Patrick Nieto MD (Electronically Signed) Final Date: 30 June 2024 13:27 S
== END 2024-06-28 12:36 | disposition home or self-care (01) ==
LOC: RAD 12:36
PROVIDERS: PCP Family Medicine; Visit Provider Internal Medicine
DX: I50.30 Unspecified diastolic (congestive) heart failure (principal); R06.02 Shortness of breath
CPT/HCPCS: 93306

== ENCOUNTER → 2024-07-02 10:58 | Outpatient (BNVA) | payer OTHER, SELFPAY | PROVIDERS: PCP Family Medicine; Visit Provider Nurse Practitioner Family | DX: I10 Essential (primary) hypertension (principal); I25.118 Atherosclerotic heart disease of native coronary artery with other forms of angina pectoris; Z87.891 Personal history of nicotine dependence; Z95.1 Presence of aortocoronary bypass graft | CPT/HCPCS: 99214 ==

== ENCOUNTER 2024-07-11 10:06 | Outpatient (CLI) | payer OTHER, SELFPAY ==
--- NOTE | 2024-07-11 | ECG_ITS ---
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 Interpretive Statements LEXISCAN SESTAMIBI STRESS TEST Procedure: At the baseline, the blood pressure was 111/72 mmHg with a heart rate of 57bpm. The electrocardiogram showed sinus bradycardia, normal axis with normal ST and T's. The Lexiscan was infused over a period of 20 seconds. A total of 0.4 mg of Lexiscan was infused. The stress phase was continued for a total of 5 minutes. Heart rate was at the end of stress phase was 57 bpm and a blood pressure of 126/72 mmHg. The EKG at the peak infusion revealed normal sinus rhythm with no significant ST-T wave changes. Sestamibi was injected 20 seconds after the Lexiscan infusion. Blood pressure at the end of recovery phase was 124/69 mmHg with a heart rate of 56 bpm. Conclusion: 1. Normal EKG response to Lexiscan infusion 2. No Lexiscan induced chest pain or cardiac arrhythmia. 3. Normal blood pressure and heart rate response. 4. Sestamibi/sestamibi perfusion scan pending; see separate report. Electronically Signed On 08-15-2024 18:46:26 INSTRUMENT INSPECTOR by Moe Cason M.D. [email or web address]
--- NOTE | 2024-07-11 10:23 | NMCV_ITS ---
NM angela perf SPECT r/s* [id number] Fahad Chakraborty Age: 63 Gender: M : 1960 Exam Date: 07/11/2024 10:23 Ordering Phys: Moe Cason M.D ([email or web address]) Technologist: JEMMA Espinoza Exam Location: [facility] Indications: cp STRESS TEST Please see separate stress test report in [facility] for full findings IMAGE PROTOCOL Rest/Stress 1 Day Radiopharmaceutical Dose (mCi) Administration Site Administered by Rest: Tc-99m 9.3 IV JEMMA Espinoza Stress:Tc-99m 29.3 IV JEMMA Espinoza Rest: 07/11/2024 60 Discovery 630 Stress: 06/14/2024 30 Discovery 630 0.4mg Lexiscan. Images obtained in supine and prone position. SPECT RESULTS Technical Quality: Good Raw Data Analysis: Normal Image Corrections: No attenuation or motion correction applied Summed Stress Score: 2 Summed Rest Score: 3 Summed Difference Score: 0 PERFUSION FINDINGS Large area of fixed perfusion defect noted in basal to distal inferior, basal to distal inferoseptal and basal to distal anteroseptal wall on both stress and rest images suggestive of old myocardial infarction versus scarring. FUNCTIONAL RESULTS (calculated via Gated SPECT) Stress Image LV EF (%): 45 Stress EDV (mL):92 TID: 1.13 Stress ESV (mL):33 FUNCTIONAL FINDINGS: There appeared to be global hypokinesis with moderately depressed left ventricular ejection fraction, there appeared to be inferoseptal and inferior wall severe hypokinesis IMPRESSIONS Patient's stress test is negative for ischemia, large area of old myocardial infarction versus scarring noted in the basal to distal inferior basal to distal inferoseptal and basal to distal anteroseptal wall without peripheral infarct ischemia. EKG segment will be documented separately. Patrick Nieto MD (Electronically Signed) Final Date: 11 July 2024 20:52 S
[2024-07-11 10:24] VITALS: BMI 27.1
[2024-07-11] MEDS: regadenoson 0.4 Mg/5 ml Syringe IVP (11:42)
[2024-07-11 11:52] VITALS: BP 126/69; PULSE 55
== END 2024-07-11 10:07 | disposition home or self-care (01) ==
LOC: CDL 10:07
PROVIDERS: PCP Family Medicine; Visit Provider Internal Medicine
DX: R07.9 Chest pain, unspecified (principal); R06.02 Shortness of breath
CPT/HCPCS: 36415; 78452; 93017; 96374; A9500; J2785

== ENCOUNTER → 2024-09-27 13:45 | Outpatient (BNVA) | payer OTHER, SELFPAY | PROVIDERS: PCP Family Medicine; Visit Provider Orthopaedic Surgery | DX: M48.062 Spinal stenosis, lumbar region with neurogenic claudication (principal) | CPT/HCPCS: 99214 ==

== ENCOUNTER → 2024-10-09 12:58 | Outpatient (BNVA) | payer OTHER, SELFPAY | PROVIDERS: PCP Family Medicine; Visit Provider Internal Medicine | DX: I25.10 Atherosclerotic heart disease of native coronary artery without angina pectoris (principal); I10 Essential (primary) hypertension; E78.5 Hyperlipidemia, unspecified; R00.0 Tachycardia, unspecified; Z95.1 Presence of aortocoronary bypass graft; F17.200 Nicotine dependence, unspecified, uncomplicated | CPT/HCPCS: 99214 ==

== ENCOUNTER → 2025-01-15 08:21 | Outpatient (BNVA) | payer OTHER, SELFPAY | PROVIDERS: PCP Family Medicine; Visit Provider Orthopaedic Surgery | DX: M54.9 Dorsalgia, unspecified (principal); M48.062 Spinal stenosis, lumbar region with neurogenic claudication | CPT/HCPCS: 99214 ==

== ENCOUNTER 2025-01-17 12:03 | Outpatient (CLI) | payer OTHER, SELFPAY ==
--- NOTE | 2025-01-17 12:15 | MR_ITS ---
WS: [id number] MRI LUMBAR SPINE NONCONTRAST HISTORY: Back pain, bilateral hip pain. Prior back surgeries. COMPARISON: 06/29/2023 TECHNIQUE: Sagittal and axial multisequence imaging is submitted. Anterior cervical fusion at C6-7. Increase in thoracic kyphosis. Normal lumbar alignment. Posterior lumbar fusion at L5-S1. Mild disc space narrowing and desiccation at L4-5 and L5-S1. No fractures or marrow edema. Conus terminates normally at L1-2 disc level. L1-L2: Normal. L2-L3: Mild disc bulging with mild encroachment upon the subarticular recesses. Mild ligamentum flavum and facet arthritis. Small amount of fluid in the facet joints. L3-L4: Mild annular disc bulging, ligamentum flavum and facet arthritis. Mild disc encroachment upon the subarticular recesses. No high-grade stenosis. L4-L5: Mild annular disc bulging and osteophytic ridging. Large posterior laminectomy. Osseous fusion posteriorly across the laminectomy site. Mild ligamentum flavum hypertrophy with deformity of the thecal sac. Clumping of the nerve roots in the thecal sac. There is disc and osteophyte contact on the traversing L5 nerve roots in the subarticular recesses. Mild subarticular recess and bilateral foraminal stenosis. L5-S1: Large posterior laminectomy defect. Moderate RIGHT and mild LEFT foraminal stenosis. Paravertebral soft tissues are negative. MR/MR lumbar spine wo con* [id number] IMPRESSION: 1. Status post L5-S1 posterior fusion with laminectomy defects. 2. L2-3 and L3-4: Mild disc encroachment upon the subarticular recesses and tr aversing nerve roots. No high-grade stenosis. 3. L4-5: Mild annular disc bulging and osteophytic ridging. Disc osteophyte co ntact on the traversing L5 nerve roots. Mild subarticular recess and bilateral foraminal stenosis due to disc and osteophyte disease. 4. L5-S1: Moderate RIGHT and mild LEFT foraminal stenosis, similar to the prio r exam.
== END 2025-01-17 12:04 | disposition home or self-care (01) ==
PROVIDERS: PCP Family Medicine; Visit Provider Orthopaedic Surgery
DX: M48.061 Spinal stenosis, lumbar region without neurogenic claudication (principal); Z98.1 Arthrodesis status; M96.89 Other intraoperative and postprocedural complications and disorders of the musculoskeletal system; M51.369 Other intervertebral disc degeneration, lumbar region without mention of lumbar back pain or lower extremity pain; M25.78 Osteophyte, vertebrae; M48.07 Spinal stenosis, lumbosacral region; M51.379 Other intervertebral disc degeneration, lumbosacral region without mention of lumbar back pain or lower extremity pain; M24.28 Disorder of ligament, vertebrae; M47.896 Other spondylosis, lumbar region
CPT/HCPCS: 72148

== ENCOUNTER → 2025-01-29 07:49 | Outpatient (BNVA) | payer OTHER, SELFPAY | PROVIDERS: PCP Family Medicine; Visit Provider Orthopaedic Surgery | DX: M48.062 Spinal stenosis, lumbar region with neurogenic claudication (principal); Z09 Encounter for follow-up examination after completed treatment for conditions other than malignant neoplasm | CPT/HCPCS: 36415; 80053; 81001; 85025; 99214 ==

== ENCOUNTER → 2025-02-13 09:13 | Outpatient (BNVA) | payer OTHER, SELFPAY | PROVIDERS: PCP Family Medicine; Visit Provider Family Medicine | DX: Z01.818 Encounter for other preprocedural examination (principal) | CPT/HCPCS: 93005 ==

== ENCOUNTER 2025-02-22 07:23 | Day surgery (SDC) | payer OTHER, SELFPAY ==
[2025-02-22] VITALS (18 sets, daily range): BP systolic 128–160; BP diastolic 76–92; PULSE 53–70; RESP 14–24; TEMP 36.1; O2SAT 95–100; BMI 25.7
[2025-02-22] MEDS: sodium chloride 0.9% 1,000 ML 30 ML IV (07:53)
--- NOTE | 2025-02-22 07:55 | P.ANESASSM_ITS ---
Pre-Anesthetic Assessment Height/Weight: Height 5 ft 11 in Weight 185 lb Temp Pulse Resp BP Pulse Ox O2 Del Method 97.0 F L 66 17 155/85 97 Room Air 02/22/25 07:43 02/22/25 07:43 02/22/25 07:43 02/22/25 07:43 02/22/25 07:43 02/22/25 07:43 Preop Diagnosis: Lumbar stenosis with neurogenic claudication Operation Date: 02/22/25 08:50 Proposed Procedures p Lumbar Spine Decompression(Not Applicable) - Tiago Bateman, DO Was Beta Nila taken within 24 hours: Yes (took half) Was Clonidine taken within 24 hours: N/A Last intake: Intake Last Liquid Date 02/21/25 Last Liquid Time 20:00 Last Solid Date 02/21/25 Last Solid Time 19:00 Social Tobacco and No alcohol Exam alert, oriented x 3 and regular rate & rhythm Airway Submandibular: within normal limits Mallampati: Class III Comments: Comments: edentulous Anesthetic Plan ASA status: 3 Anesthesia: General Other: Patient has a history of being hypotensive immediately following induction. Patient was put to sleep in 2023 and had profound hypotension requiring epinephrine. Case was canceled prior to start of surgery. Patient has since followed with cardiology. Attributed this to preop beta-nila and water pills. Workup since that time has been negative, including stress test NPO since yesterday evening CAD history, s/p PCI with ALONSO. Patient follows with cardiology On chronic Plavix. 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 Hypertension on metoprolol Labs reviewed 01/29/2025 and acceptable for procedure EKG sinus rhythm Plan for GETA Medications/Allergies Home Medications ?Medication ?Instructions ?Recorded ?Confirmed ?Last Taken ?Type aspirin 81 mg tablet,delayed 81 mg PO QAM 12/24/1902/18/25 History release (Adult Low Dose Aspirin) nitroglycerin 0.4 mg sublingual 0.4 mg sublingual Q5M PRN Chest 12/24/19 02/22/25 Unknown History tablet (Nitrostat) Pain clopidogrel 75 mg tablet 75 mg PO DAILY #90 tabs 04/1402/22/25 02/17/25 Rx pantoprazole 40 mg tablet,delayed 40 mg PO DAILY 09/1902/22/25 02/21/25 History release (Protonix) trazodone 100 mg tablet 200 mg PO BEDTIME 09/19/23 0 02/22/25 02/21/25 History prazosin 1 mg capsule 1 mg PO .qhs 04/20/2402/18/25 History simvastatin 40 mg tablet 80 mg PO BEDTIME 04/20/2402/21/25 History acetaminophen 500 mg tablet 500 mg PO Q6H 05/21/2402/21/25 History (Tylenol Extra Strength) oxycodone 5 mg tablet 5 mg PO Q4H PRN Pain 7 days #40 01/26/25 02/22/25 02/21/25 Rx tabs metoprolol tartrate 50 mg tablet 50 mg PO QDAY 5 02/22/25 02/21/25 History Allergies Allergy/AdvReac Type Severity Reaction Status Date / Time tramadol (From Ultram) Allergy Severe Seizures Verified 02/22/25 07:37 celecoxib (From Celebrex) Allergy Mild Chronic Verified 02/22/25 07:37 Diarrhea mint Allergy Unknown Verified 02/22/25 07:37 dexamethasone AdvReac Intermediate ADR-Agitate Verified 02/22/25 07:37 d ibuprofen AdvReac Mild Taking Verified 02/22/25 07:37 Plavix Current Medications Generic Name Dose Route Start Last Admin Trade Name Freq PRN Reason Stop Dose Admin Sodium Chloride 1,000 mls @ 30 mls/hr 02/22/25 07:30 02/22/25 07:53 Sodium Chloride 0.9% IV 02/23/25 07:29 30 mls/hr .Q24H YINKA Administration PFSH Anesthesia Medical History Steroid-induced psychosis GERD (gastroesophageal reflux disease) Hernia BPH (benign prostatic hyperplasia) Adjustment disorder with mixed disturbance of emotions and conduct Hyperlipidemia LDL goal <70 Continue statin Coronary artery disease Patient has multivessel coronary disease including distal left main 80% mid LAD 80% and proximal RCA 70%. He has normal ejection fraction. Due to nonavailability of surgical staff we are going to transfer the patient to [facility]. I have discussed with patient and he agrees with it. . As defined above I have spoken to Dr. Patiño at [facility], heart team at [facility] has accepted the transfer. We will transfer the patient he is stable vital asencio he is not on any drip he has distal left main significant 80% stenosis, mid significant 80% LAD and proximal RCA. Patient has prior stents. He has normal left ventricular ejection fraction. He is stable vital asencio but continues to have angina upon mild exertion. HTN (hypertension) Appear to be stable continue current regimen Surgical History H/O neck surgery S/P skin and subcutaneous tissue surgery S/P spinal surgery S/P CABG (coronary artery bypass graft) S/P PTCA (percutaneous transluminal coronary angioplasty) Family History Sister Stroke Mother Stroke CAD (coronary artery disease) Social History Smoking and tobacco/nicotine status: current every day tobacco/nicotine user Second hand smoke exposure: No Alcohol intake: never Substance/Drug Use: never Lives independently: Yes Household members: spouse Marital status: Data Anesthesia Cardiac Studies: Echocardiogram 06/28/24 Echocardiogram Ultrasound 09/16/20 Sestamibi Stress Test (Cardiology) 07/11
--- NOTE | 2025-02-22 08:18 | W.PM.OPSUD ---
Surgery/Procedure H&P Update DATE OF PROCEDURE: February 22, 2025 DATE H&P PERFORMED: 01/29/25 H&P UPDATE INFORMATION: I have reviewed H&P completed within last 30 days, I have examined patient prior to procedure and No changes to prior documentation PREOP DIAGNOSIS: Lumbar stenosis with neurogenic claudication PLANNED PROCEDURE: Operation Date: 02/22/25 08:50 Proposed Procedures p Lumbar Spine Decompression(Not Applicable) - Tiago Bateman DO
[2025-02-22] MEDS: ceFAZolin 2,000 mg SDV 2000 MG IVP (08:41)
[2025-02-22] MEDS: lidocaine-epi 1% 20 mL INJ 10 ML INJECTION (09:42)
--- NOTE | 2025-02-22 09:50 | XR_ITS ---
WS: [id number] Lumbar spine, C-arm fluoroscopy views, 02/22/2025 Clinical Data: or pics Comparison: Lumbar spine, 07/28/2023 Findings: Dr. Bateman performed a lumbar decompression. XR/XR lumbar spine 2-3V* [id number] Impression: Lumbar decompression.
--- NOTE | 2025-02-22 10:07 | PM.OP ---
Operative Report Date of procedure: February 22, 2025 Pre-op diagnosis: Lumbar stenosis neurogenic claudication Post-op diagnosis: same Procedure done: L4-5 laminectomy with partial facetectomy Surgeon: Tiago Bateman DO Estimated blood loss (mL): 5 Procedure: L4-5 laminectomy with partial facetectomy Patient is brought to the operative suite. After undergoing anesthesia they are placed in the prone position. All areas of impingement are well padded. Patient is then prepped and draped in the normal sterile fashion. A skin incision is made over the L4/5 level. This is confirmed under c-arm guidance. A series of dilators are passed and the tubular retractor is docked on the L4 lamina. A bovie is used to clear the soft tissue off the lamina and the L 4/5 facet joint. A high speed barby is then used to perform the laminectomy and take down the medial aspect of the L 4/5 facet joint. A kerrison rongeure was then used to take down the remaining lamina and smooth the edge of the laminectomy up to the point where the ligamentum flavum attaches. Attention was then brought to the medial aspect of the facet joint. The remaining medial aspect of the superior and inferior aspect of the facet joint were taken down with the kerrison from the pedicle of L4 to L 5. The facet joint had significant hypertrophy. Attention was then brought to the Ligamentum Flavum. The ligament was taken down from the lamina of L4 to L5 and out medially to the remaining facet joint. The ligament was thick. The dura was then exposed. The dura was in good repair. The L4 nerve was then traced with a curette out the L4/5 foramen and found to be adequately decompressed. The L5 nerve was traced with a curette around the L5 pedicle. The lateral recess was opened with a kerrison helping to further decompress the L5 nerve. Wound is then irrigated copiously with saline and surgiflo is used to stop any bleeding. The tubular retractor is removed and the wound is closed with vicryl and monocryl suture. Glue is then used to protect the wound. A sterile dressing is then placed. Patient was then placed in the supine position and transferred to the PACU in stable condition.
[2025-02-22] MEDS: fentaNYL 50 mcg/mL INJ 2mL IVP ×2 (10:20→10:30)
[2025-02-22] MEDS: oxyCODONE 5 mg IR Tab/Cap 10 MG PO (11:46)
== END 2025-02-22 11:52 | disposition home or self-care (01) ==
PROVIDERS: PCP Family Medicine; Visit Provider Orthopaedic Surgery
PROC: (CPT 63005; principal; 2025-02-22 08:30)
DX: M48.062 Spinal stenosis, lumbar region with neurogenic claudication (principal); I25.10 Atherosclerotic heart disease of native coronary artery without angina pectoris; Z95.5 Presence of coronary angioplasty implant and graft; Z79.02 Long term (current) use of antithrombotics/antiplatelets; I10 Essential (primary) hypertension; Z79.82 Long term (current) use of aspirin; N40.0 Benign prostatic hyperplasia without lower urinary tract symptoms; E78.5 Hyperlipidemia, unspecified; F17.200 Nicotine dependence, unspecified, uncomplicated
CPT/HCPCS: 63047; 72100; 76000; J0171; J0690; J2250; J2371; J2405; J2704; J3010; J3490; J3535; J7030; J9999

== ENCOUNTER → 2025-03-07 15:04 | Outpatient (BNVA) | payer OTHER, SELFPAY | PROVIDERS: PCP Family Medicine; Visit Provider Orthopaedic Surgery | DX: Z98.890 Other specified postprocedural states (principal) | CPT/HCPCS: 99024 ==

== ENCOUNTER → 2025-04-09 13:56 | Outpatient (BNVA) | payer OTHER, SELFPAY | PROVIDERS: PCP Family Medicine; Visit Provider Internal Medicine | DX: I10 Essential (primary) hypertension (principal); E78.5 Hyperlipidemia, unspecified; I25.10 Atherosclerotic heart disease of native coronary artery without angina pectoris; R00.0 Tachycardia, unspecified | CPT/HCPCS: 99213 ==